=== PATIENT | male | born 1990 | race Caucasian/White ===

== ENCOUNTER 2016-10-07 01:11 | Emergency (ER) | payer MEDICAID, OTHER ==
[~2016-10-07] VITALS: Ht 172.7 cm; Wt 136.1 kg
[~2016-10-07 01:11] MED LIST: TRAZ50TA2 PO; VENL75CA47 PO
[2016-10-07 01:15] VITALS: BP 156/85
== END 2016-10-07 01:49 | disposition left against medical advice (07) ==
LOC: EDBD 01:11 → M ED 01:45
DX: F11.129 Opioid abuse with intoxication, unspecified (principal); Z79.899 Other long term (current) drug therapy

== ENCOUNTER → 2016-11-11 | Outpatient (CLI) | payer OTHER ==
[2016-11-11 13:56] LABS: MEAN CORPUSCULAR HEMOGLOBIN 27.3 pg (27.0-33.0); MEAN CORPUSCULAR HGB CONC 33.6 g/dl (32.0-36.5); MEAN CORPUSCULAR VOLUME 81.3 fl (80.0-96.0); RED CELL DISTRIBUTION WIDTH 13.5 % (11.5-14.5)
[2016-11-11 14:20] LABS: ALBUMIN/GLOBULIN RATIO 1.38 (1.00-1.93); ALKALINE PHOSPHATASE 121 U/L (45-117); ALT/SGPT 65 U/L (12-78); ANION GAP 7 MEQ/L (8-16); AST/SGOT 48 U/L (15-37); BILIRUBIN,TOTAL 0.3 MG/DL (0.2-1.0); BLOOD UREA NITROGEN 11 MG/DL (7-18); CARBON DIOXIDE LEVEL 26 MEQ/L (21-32); CHLORIDE LEVEL 107 MEQ/L (98-107); CREATININE FOR GFR 0.84 MG/DL (0.70-1.30); GLOMERULAR FILTRATION RATE > 60.0 (>60); GLUCOSE, FASTING 131 MG/DL (70-105); POTASSIUM SERUM 4.3 MEQ/L (3.5-5.1); SODIUM LEVEL 140 MEQ/L (136-145); TOTAL PROTEIN 6.9 GM/DL (6.4-8.2)
--- NOTE | 2016-11-11 21:01 | ECGEPIP ---
Stationary ECG Study [facility] Test Date: 2016-11-11 Pat Name: CONRAD LI Department: Room: - Gender: M Director Of Reimbursement: : 1990 Requested By: Lenin Hoang Order Number: [id number] Reading MD: Joselo Albarran Measurements Intervals [place] Rate: 89 P: 32 MN: 157 QRS: 16 QRSD: 92 T: 18 QT: 358 QTc: 437 Interpretive Statements Normal sinus rhythm Likely normal for age Electronically Signed On 11-11-2016 21:01:21 EDT by Joselo Albarran
== END ==
LOC: M LAB 12:21
PROVIDERS: ATTEND Family Medicine
DX: F11.20 Opioid dependence, uncomplicated (principal)

== ENCOUNTER 2016-11-18 10:33 | Emergency (ER) | payer OTHER ==
[~2016-11-18] VITALS: Ht 172.7 cm; Wt 152.0 kg
[2016-11-18] MEDS ORDERED: SUBO4MIS SL (10:44)
[2016-11-18] MEDS ORDERED: HYDR25T PO (10:44)
[2016-11-18] MEDS ORDERED: GABA-283 PO (10:44)
[2016-11-18] MEDS ORDERED: IBUP600T26 PO (10:44)
[2016-11-18] MEDS ORDERED: KETOROLAC 60 MG/2 ML VIAL (J1885) IM ONE (11:30)
[2016-11-18 12:01] LABS: BASO # 0.1 K/mm3 (0.0-0.2); BASO % 0.7 % (0.0-1.0); EOS # 0.6 K/mm3 (0.0-0.50); EOS % 6.6 % (0.0-3.0); LARGE UNSTAINED CELL # 0.1 K/mm3 (0.0-0.4); LARGE UNSTAINED CELL % 1.5 % (0.0-4.0); LYMPH # 3.1 K/mm3 (1.5-6.5); LYMPH % 34.2 % (24.0-44.0); MEAN CORPUSCULAR HEMOGLOBIN 26.9 pg (27.0-33.0); MEAN CORPUSCULAR HGB CONC 33.2 g/dl (32.0-36.5); MEAN CORPUSCULAR VOLUME 81.1 fl (80.0-96.0); MONO # 0.5 K/mm3 (0.0-0.8); NEUTROPHILS # 4.4 K/mm3 (1.8-7.7); PLATELET COUNT, AUTOMATED 234 k/mm3 (150-450); RED CELL DISTRIBUTION WIDTH 13.6 % (11.5-14.5); WHITE BLOOD COUNT 8.6 K/mm3 (4.0-10.0)
[2016-11-18 12:26] LABS: ANION GAP 6 MEQ/L (8-16); BLOOD UREA NITROGEN 10 MG/DL (7-18); CALCIUM LEVEL 8.9 MG/DL (8.5-10.1); CARBON DIOXIDE LEVEL 29 MEQ/L (21-32); CHLORIDE LEVEL 105 MEQ/L (98-107); CREATININE FOR GFR 0.83 MG/DL (0.70-1.30); GLOMERULAR FILTRATION RATE > 60.0 (>60); GLUCOSE, FASTING 106 MG/DL (70-105); POTASSIUM SERUM 4.3 MEQ/L (3.5-5.1); SODIUM LEVEL 140 MEQ/L (136-145); URIC ACID 6.8 MG/DL (3.5-7.2)
[2016-11-18 12:45] VITALS: BP 140/81
[2016-11-18] MEDS ORDERED: HYDR25TAB PO (12:57)
== END 2016-11-18 13:01 | disposition home or self-care (01) ==
LOC: M ED 11:34
DX: R60.0 Localized edema (principal); F99 Mental disorder, not otherwise specified; F11.10 Opioid abuse, uncomplicated; Z79.899 Other long term (current) drug therapy; F17.210 Nicotine dependence, cigarettes, uncomplicated
CPT/HCPCS: 36415; 80048; 84550; 85025; 96372; 99282; J1885

== ENCOUNTER → 2016-12-08 | Outpatient (CLI) | payer OTHER ==
[~2016-12-08] MED LIST changes: +GABA-283 PO; +HYDR25T PO; +HYDR25TAB PO; +IBUP600T26 PO; +SUBO4MIS SL
[2016-12-08 12:32] LABS: BASO # 0.1 K/mm3 (0.0-0.2); BASO % 0.9 % (0.0-1.0); EOS # 0.5 K/mm3 (0.0-0.50); LARGE UNSTAINED CELL # 0.2 K/mm3 (0.0-0.4); LARGE UNSTAINED CELL % 2.4 % (0.0-4.0); LYMPH # 3.2 K/mm3 (1.5-6.5); LYMPH % 31.2 % (24.0-44.0); MEAN CORPUSCULAR HEMOGLOBIN 27.9 pg (27.0-33.0); MEAN CORPUSCULAR HGB CONC 34.5 g/dl (32.0-36.5); MEAN CORPUSCULAR VOLUME 80.9 fl (80.0-96.0); MONO # 0.9 K/mm3 (0.0-0.8); NEUTROPHILS # 4.7 K/mm3 (1.8-7.7); NEUTROPHILS % 50.4 % (36.0-66.0); PLATELET COUNT, AUTOMATED 247 k/mm3 (150-450); RED CELL DISTRIBUTION WIDTH 13.4 % (11.5-14.5); WHITE BLOOD COUNT 9.4 K/mm3 (4.0-10.0)
[2016-12-08 13:15] LABS: ALBUMIN 3.6 GM/DL (3.2-5.2); ALBUMIN/GLOBULIN RATIO 1.24 (1.00-1.93); ALKALINE PHOSPHATASE 69 U/L (45-117); ALT/SGPT 43 U/L (12-78); ANION GAP 8 MEQ/L (8-16); AST/SGOT 46 U/L (15-37); BILIRUBIN,TOTAL 0.5 MG/DL (0.2-1.0); BLOOD UREA NITROGEN 16 MG/DL (7-18); CARBON DIOXIDE LEVEL 28 MEQ/L (21-32); CHLORIDE LEVEL 104 MEQ/L (98-107); CHOLESTEROL LEVEL 157 MG/DL (<200); CREATININE FOR GFR 0.87 MG/DL (0.70-1.30); GLOMERULAR FILTRATION RATE > 60.0 (>60); GLUCOSE, FASTING 96 MG/DL (70-105); POTASSIUM SERUM 4.5 MEQ/L (3.5-5.1); SODIUM LEVEL 140 MEQ/L (136-145); TOTAL PROTEIN 6.5 GM/DL (6.4-8.2); TRIGLYCERIDES LEVEL 438 MG/DL (<150)
--- NOTE | 2016-12-08 17:02 | REP ---
LUMBAR SPINE, SIX VIEWS: HISTORY: Visual exam. COMPARISON: 09/10/2012. A rudimentary disc is present at the S1-2 level. There is no acute fracture or subluxation. The L3-4 through L5-S1 intervertebral discs are decreased in height consistent with disc degeneration. The facet joints are normal in appearance. There is spina bifida occulta of S1 and 2. IMPRESSION: Degenerative change as described above. Signed by Rikki Hinkle MD 12/08/2016 05:05 P
== END ==
LOC: M LAB 11:26
PROVIDERS: ATTEND Nurse Practitioner Family
DX: R60.9 Edema, unspecified (principal); E66.01 Morbid (severe) obesity due to excess calories; Z13.220 Encounter for screening for lipoid disorders

== ENCOUNTER → 2017-01-13 | Outpatient (CLI) | payer OTHER ==
--- NOTE | 2017-01-13 23:53 | ECWPNPC ---
PATIENT NAME: CONRAD LI : 1990 GENDER: MALE VISIT DATE: 01/13/2017 DISCHARGE DATE: 01/13/17 1256 VISIT LOCKED DATE TIME: PHYSICIAN: DENISE GONZALES RESOURCE: DENISE GONZALES REASON FOR APPOINTMENT 1. BACK PAIN HISTORY OF PRESENT ILLNESS FALL RISK SCREENIN26 Y/O MALE [facility]RON[facility] GENERALIZED BACK PAIN.HAS HAD THIS FOR SEVERAL YEARS.PAIN IS AGGREVATED BY PROLONGED STANDING AND LAYING DOWN.REPORTING POOR SLEEP DUE TO PAIN.STATES HE HAS FALLEN DOWN STAIRS IN 2011 WHICH HE FEELS MIGHT HAVE STARTED PAIN.HISTORY OF HEROIN AND OPIATE/PERCOCET ADDICTION DISORDER.STATES HE HAS BEEN CLEAN FOR THREE MONTHS AND IS RESIDING IN [facility] HOUSE MANAGED BY [employer].CURRENTLY ON SUBOXONE THERAPY.TAKING NAPROXEN 500MG BID.NO RECENT PT.DESCRIBES PAIN A CONSTANT ACHING PAIN THAT IS WORSE IN AM.RATING PAIN VAS 3/10.DENIES BOWEL OR BLADDER ISSUES.NORECENT FEVER ,ILLNESS OR WEIGHT LOSS. SCREENING :NO FALLS IN THE PAST YEAR PAIN SCREENING: PATIENT HAS A COMPLAINT OF ACUTE OR CHRONIC PAIN :YES CURRENT MEDICATIONS TAKING GABAPENTIN 400 MG CAPSULE 1 CAPSULE ORALLY BID TAKING ZOLOFT 50 MG TABLET 1 TABLET ORALLY ONCE A DAY TAKING HYDROXYZINE HCL 25 MG TABLET 1 TABLET ORALLY EVERY 4 HOURS NEEDED TAKING LASIX 20 MG TABLET 1 TABLET ORALLY ONCE A DAY TAKING SUBOXONE 8-2 MG FILM 1 FILM UNDER THE TONGUE AND ALLOW TO DISSOLVE SUBLINGUAL ONCE A DAY TAKING NAPROXEN 500 MG TABLET 1 TABLET NEEDED ORALLY EVERY 12 HRS PRN PAIN MEDICATION LIST REVIEWED AND RECONCILED WITH THE PATIENT PAST MEDICAL HISTORY HX OF HEROIN USE HX OF OPIOID ABUSE LOW BACK PAIN OCD PTSD MANIC DEPRESSION ADJUSTMENT DISORDER SOCIAL ANXIETY ANXIETY DDD ARTHRITIS OBESITY ALLERGIES GABAPENTIN: FLUID RETENSION: SIDE EFFECTS SURGICAL HISTORY CARPAL TUNNEL RELEASE BILATERAL HERNIA REPAIR-LEFT INGUINAL T & A FAMILY HISTORY FATHER: ALIVE 50 YRS, BRAIN TUMOR BENIGN ALCOHOLIC, DRUG ABUSE (RECOVERY)., DIAGNOSED WITH OTHER MOTHER: ALIVE 50 YRS, MENTAL HEALTH ISSUES, DIAGNOSED WITH OTHER SIBLINGS: ALIVE PATERNAL GRAND FATHER: PATERNAL GRAND MOTHER: , BREAST,COLON,LUNG,THROAT CANCER, DIAGNOSED WITH CANCER MATERNAL GRAND FATHER: ALIVE, DIAYLSIS, DIAGNOSED WITH DIABETES, HEART DISEASE MATERNAL GRAND MOTHER: ALIVE, BREAST CANCER, DIAGNOSED WITH CANCER 4 BROTHER(S) , 1 SISTER(S) - HEALTHY. 2 SON(S) , 1 DAUGHTER(S) - HEALTHY. FATHER--BRAIN TUMOR-BEIGN, ALCOHOLIC, DRUG ABUSE,DDDMOTHER-MENTAL HEALTH ISSUES, DDDBROTHERS SMOKE MARIJUANA. SOCIAL HISTORY GENERAL: TOBACCO USE ARE YOU A:FORMER SMOKER QUIT 01/06/17 SMOKING CESSATION INFORMATION GIVEN12/07/2016 ALCOHOL SCREENING POINTS5 INTERPRETATIONPOSITIVE RECREATIONAL DRUG USE DRUG USE?YES COCAINE, MARIJUANA, CRACK, HEROIN, OPIATES, HOW OFTEN AND HOW MUCH? NOT USING AT THIS TIME--HE IS IN A [employer] HOUSE AND HAS BEEN CLEAN FOR 3 MONTHS CAFFEINE CAFFEINE USE?YES HOW OFTEN AND HOW MUCH? POT OF COFFEE, 2 ENERGY DRINKS/DAILY SEXUAL HX HAD SEX IN THE LAST 12 MONTHS (VAGINAL, ORAL, OR ANAL)?YES WITHWOMEN ONLY USE PROTECTION?NO PREVENTION STRATEGIES DISCUSSED:OTHER HAVE YOU EVER HAD AN STD?NO HIV / HEP-C SCREENING HIV TEST OFFERED TO PATIENT:YES DATE OFFERED:12/07/2016 TEST ACCEPTED:NO REASON:OTHER (DOCUMENT IN NOTE) DECLINES NEGATIVE IN THE PAST. HEP-C TEST OFFERED TO PATIENT:NO OCCUPATION: [employer]. DIET: REGULAR. EXERCISE: NONE. MARITAL STATUS: SINGLE. OTHERS AT HOME: OTHER NON-RELATIVE. PETS: 1 DOG. ANABAPTISM [id number] [employer] LANGUAGE LANGUAGES SPOKEN:HUNGARIAN EDUCATION LEVEL OF EDUCATION:NOT FINISHED COLLEGE LEARNING BARRIERS / SPECIAL NEEDS CHANGE FROM LAST VISIT?NO BARRIERS TO LEARNING?NO HEARING IMPAIRED?NO VISION IMPAIRED?NO COGNITIVELY IMPAIRED?YES HAS PROBLEMS FOCUSING READINESS TO LEARN?YES LEARNING PREFERENCES?YES :OTHER (PLEASE COMMENT) 'LIKES TO LISTEN' LEARNING CAPABILITIES PRESENT?YES EMOTIONAL BARRIERS?NO SPECIAL DEVICES?NO VP ANALYSIS NEEDED?NO PAIN CLINIC PFS, CLERGY, PUBLIC HEALTH REFERRALS PFS REFERRAL NEEDED?NO CLERGY REFERRAL NEEDED?NO PUBLIC HEALTH REFERRAL NEEDED?NO ADVANCE DIRECTIVES HEALTH CARE PROXY?NO WOULD YOU LIKE MORE INFORMATION?NO DO YOU HAVE A DNR?NO WOULD YOU LIKE MORE INFORMATION?NO LIVING WILL?NO WOULD YOU LIKE MORE INFORMATION?NO POWER OF FIBERGLASS ROVING WINDER?NO WOULD YOU LIKE MORE INFORMATION?NO COHABITATING: YEARS MONTHS. NO DOMESTIC VIOLENCE . PLAN OF CARE FOR THE PAIN CENTER REVIEWED WITH PATIENT AND HE VERBALIZED UNDERSTANDING. AD. HOSPITALIZATION/MAJOR DIAGNOSTIC PROCEDURE [facility] DRUG ADDICTION. 10/08-11/09/2016 [facility] M[facility] 10/2012 REVIEW OF SYSTEMS CONSTITUTIONAL: ANY CHANGE IN YOUR MEDICAL CONDITION? NO . CHILLS NO . FEVER NO . INFECTION: DO YOU HAVE NEW INFECTIONS? NO . DO YOU HAVE HISTORY OF MRSA? NO . MUSCULOSKELETAL: ANY NEW PATTERNS OF PAIN OR NUMBNESS? YES, IF HE STANDS TOO LONG IT FEELS LIKE HE IS BEING ELECTRICUTED . SYTEMIC LUPUS NO . GASTROENTEROLOGY: ANY NEW CHANGE IN BOWEL CONTROL? NO . BARRETTS ESOPHAGUS NO . CIRRHOSIS NO . HEPATITIS NO . LIVER FAILURE NO . ACID REFLUX NO . UNEXPLAINED WEIGHT LOSS NO . GENITOURINARY: ANY NEW CHANGE IN BLADDER CONTROL? NO . IS THERE A CHANCE YOU COULD BE ? NO . HEMATOLOGY/LYMPH: DO YOU TAKE ANY BLOOD THINNERS? (FOR EXAMPLE- COUMADIN, PLAVIX, AGGRENOX, PLATEL, PRADAXA, OR XARELTO) NO . WHEN WAS YOUR LAST DOSE? DATE: TIME: . LOW PLATELET COUNT NO . SICKLE CELL DISEASE NO . VON WILLIEBRANDS NO . FACTOR V LEIDEN NO . THALLASEMIA NO . ANEMIA NO . EASY BRUISING NO . NEUROLOGY: HAVE YOU FALLEN IN THE PAST 6 MONTHS? NO . ANY NEW EXTREMITY NUMBNESS OR WEAKNESS? NO . HEAD INJURY NO . DEMENTIA NO . CEREBRAL PALSY NO . MULTIPLE SCLEROSIS NO . DIZZINESS NO . HEADACHE NO . STROKES NO . VERTIGO NO . CARDIOLOGY: DO YOU HAVE A PACEMAKER OR DEFIBRILLATOR? NO . ANGINA NO . HEART ATTACK NO . HEART SURGERY NO . CONGESTIVE HEART FAILURE/FLUID OVERLOAD NO . CHEST PAIN NO . HIGH BLOOD PRESSURE NO . IRREGULAR HEART BEAT NO . RESPIRATORY: HAVE YOU BEEN SICK IN THE PAST WEEK? NO . FEVER NO . FLU LIKE SYMPTOMS? NO . CPAP NO . BYPAP NO . ASTHMA NO . EMPHYSEMA NO . CHRONIC LUNG DISEASES NO . SHORTNESS OF BREATH ON EXERTION NO . COUGH NO . SNORING YES, HAS SLEEP STUDY SET UP FOR FEBRUARY . INTEGUMENTARY: DO YOU HAVE ANY RASHES OR OPEN SORES? NO . ALLERGIC/IMMUNO: ARE YOU ALLERGIC TO SHELLFISH OR IV DYE? NO . ANY NEW ALLERGIES? NO . PSYCHIATRIC: DO YOU HAVE THOUGHTS OF HURTING YOURSELF OR SOMEONE ELSE? NO . ARE YOU ABUSED, NEGLECTED, OR IN AN UNSAFE ENVIRONMENT? NO . ENDOCRINOLOGY: ARE YOU DIABETIC? NO . THYROID DISORDER NO . OTHER: DO YOU NEED ANY PRESCRIPTIONS? NO . IF YES, PLEASE LIST: ____ . ANY NEW PROBLEMS WITH YOUR MEDICATIONS? NO . WHEN DID YOU LAST EAT? ____ . WHEN DID YOU LAST DRINK? ____ . WHAT DID YOU LAST DRINK? ____ . NAME OF PERSON DRIVING YOU HOME? ____ . DO YOU HAVE ANY OTHER QUESTIONS OR CONCERNS YES, PAIN RELIEF . REVIEWED BY: PROVIDER: DENISE OMER . VITAL SIGNS WT 336.4 LBS, HT 68 IN, BMI 51.14 INDEX, BP 141/81 MM HG, HR 87 /MIN, RR 18 /MIN, TEMP 97.9 F, OXYGEN SAT % 95%, NA INITIALS SC 11:59, REVIEWED BY: AD. EXAMINATION GENERAL EXAMINATION: GENERAL APPEARANCE:COMFORTABLE/OBESE. PSYCHAFFECT NORMAL. HEENT:NORMOCEPHALIC. NECK:NO LYMPHADENOPATHY, NO MASS. LUNGS:LUNG SOUNDS ARE CLEAR.RESPIRATIONS-NON LABORED. HEART:S1, S2 IN A REGULAR RATE AND RHYTHM. NO SIGNIFICANT MURMURS, RUBS OR GALLOPS NOTED. BACK:TENDER OVER MID AND LOWER THORACIC.ROJM SPINE IS FULL WITH INCRESSE IN PAIN WITH FLEXION AND EXTENSION.MUSCLE STRENGTH 5/5 BILAT.LE.REPORTING NORMAL SENSATION TO LIGHT TOUCH BILAT.LE. DIAGNOSTIC DATA-XRAY L/S [id number]-REVIEWED. ASSESSMENTS LOW BACK PAIN AT MULTIPLE SITES - M54.5 (PRIMARY) LUMBAR RADICULOPATHY - M54.16 TREATMENT LOW BACK PAIN AT MULTIPLE SITES [facility] MRI SPINE, L.S. WITHOUT [id number] NOTES: TAKE ACETAMINOPHEN 500MG TWO TAB. WITH NAPROXEN TWICE PER DAY, #128 - SCREENING BMI AND F/U PLAN IN : BMI ABOVE NORMAL TODAY. DISCUSSED WITH PATIENT NUTRITIONAL FOOD CHOICES TO ASSIST WITH WEIGHT LOSS. RECCOMMENDED REDUCING SALT, SUGAR, SODA INTAKE. RECOMMEND INCREASE ACTIVITY TO INCLUDE WALKING ON A REGULAR BASIS. PROFESSIONAL NUTRITIONAL NUTRITIONAL GUIDANCE WAS OFFERED AND WAS DECLINED. , PATIENT WAS ADVISED TO START A WALKING PROGRAM TO STRENGTHEN LUMBAR PARASPINAL MUSCLES AND IMPROVE MOBILITY. THEY WERE ADVISED THAT THIS WILL IMPROVE WEIGHT LOSS AND ALSO DEPRESSION/FIBROMYALGIA SYMPTOMS. ADVISED TO WALK 10 MINUTES EVERY OTHER DAY ON A FLAT SURFACE. EMPHASIZED THE IMPORTANCE OF DOING THIS CONSISTANTLY AND NOT SPORATICALLY TO AVOID INJURY. STRONG ADVISED NOT TO DO MORE THAN 10 MINUTES EVERY OTHER DAY FOR THE FIRST 4 WEEKS. PROCEDURE CODES FA211 ESTABILISHED PATIENT [facility] CHARGE DISPOSITION & COMMUNICATION FOLLOW UP 4 WEEKS ELECTRONICALLY SIGNED BY KAN CARDENAS ON 01/13/2017 AT 02:31 PM EDT DISCLAIMER : THIS IS A VISIT SUMMARY EXTRACTED FROM THE [employer] CHART. IT IS NOT A COPY OF THE [employer] PROGRESS NOTE. DHIRAJ
== END | disposition home or self-care (01) ==
LOC: M PAIN 11:20
PROVIDERS: ATTEND Nurse Practitioner Family
DX: G89.29 Other chronic pain (principal); M54.16 Radiculopathy, lumbar region; F42.9 Obsessive-compulsive disorder, unspecified; F43.10 Post-traumatic stress disorder, unspecified; F33.9 Major depressive disorder, recurrent, unspecified; F43.20 Adjustment disorder, unspecified; F41.8 Other specified anxiety disorders; M19.90 Unspecified osteoarthritis, unspecified site; E66.9 Obesity, unspecified; Z79.899 Other long term (current) drug therapy; F11.21 Opioid dependence, in remission; Z88.8 Allergy status to other drugs, medicaments and biological substances; F17.210 Nicotine dependence, cigarettes, uncomplicated

== ENCOUNTER → 2017-01-18 | Outpatient (REF) | payer OTHER ==
[2017-01-18 14:14] LABS: ALBUMIN/GLOBULIN RATIO 1.43 (1.00-1.93); ALKALINE PHOSPHATASE 66 U/L (45-117); ALT/SGPT 28 U/L (12-78); ANION GAP 8 MEQ/L (8-16); AST/SGOT 29 U/L (15-37); BILIRUBIN,TOTAL 0.6 MG/DL (0.2-1.0); BLOOD UREA NITROGEN 17 MG/DL (7-18); CALCIUM LEVEL 9.3 MG/DL (8.5-10.1); CARBON DIOXIDE LEVEL 28 MEQ/L (21-32); CHLORIDE LEVEL 106 MEQ/L (98-107); CREATININE FOR GFR 0.86 MG/DL (0.70-1.30); GLOMERULAR FILTRATION RATE > 60.0 (>60); GLUCOSE, FASTING 79 MG/DL (70-105); POTASSIUM SERUM 4.2 MEQ/L (3.5-5.1); SODIUM LEVEL 142 MEQ/L (136-145); TOTAL PROTEIN 6.8 GM/DL (6.4-8.2)
== END ==
LOC: M SFHCPLAZ 10:42
PROVIDERS: ATTEND Nurse Practitioner Family
DX: R60.9 Edema, unspecified (principal)

== ENCOUNTER → 2017-02-03 | Outpatient (CLI) | payer OTHER ==
[~2017-02-03] MED LIST changes: +HYDR-3363 PO; -HYDR25T PO; +IBUP-1022 PO; -IBUP600T26 PO; +NAPR500T PO; +ZOLO100T PO
--- NOTE | 2017-02-03 12:25 | REP ---
REASON: Low back pain. COMPARISON: None. There is loss of posterior disc space height and universal disc hydrational signal L2-3 through L4-5 inclusive. There is no abnormal signal seen in the imaged portion of the spinal cord. The conus ends at the T12-L1 level. The marrow signal is within normal limits. Vertebral body height and alignment is within normal limits. At the L1-2 leve, there is no disc herniation, foraminal narrowing or central canal stenosis. Mild degenerative facet joint changes are seen bilaterally with thickening of the ligamenta flava and there is a small left facet joint cyst. At the L2-3 level, there is a broad-based annular bulge seen in conjunction with a small central/left paracentral disc protrusion which causes minimal compression of the anterior thecal sac. Degenerative facet joint changes are seen bilaterally with thickening of the ligamentum flava and the factors in concert cause minimal central canal stenosis. There is no foraminal narrowing or jennyfer disc extrusion. At the L3-4 level, there is a broad-based annular bulge seen in conjunction with a small central/right paracentral disc extrusion which causes an concave anterior deformity of the anterior thecal sac. This is seen in conjunction with degenerative facet joint changes bilaterally and thickening of the ligamentum flava. There is no foraminal narrowing. The extruded disc does not migrate. At the L4-5 level, there is a broad-based annular bulge seen in conjunction with a tiny focal central subligamentous disc protrusion, which does not deform the anterior thecal sac. There is no disc extrusion or foraminal narrowing. At the L5-S1 level there is no abnormality noted. There is no disc herniation, foraminal narrowing or central canal stenosis. IMPRESSION: Multilevel discogenic changes as described above with a small disc extrusion see at the L3-4 level. Signed by Modesto Quintero DO 02/03/2017 12:58 P
== END ==
LOC: M PLARAD 07:54
PROVIDERS: ATTEND Nurse Practitioner Family
DX: M51.26 Other intervertebral disc displacement, lumbar region (principal)

== ENCOUNTER → 2017-02-08 | Outpatient (CLI) | payer OTHER ==
--- NOTE | 2017-02-21 00:51 | ECWPNPC ---
PATIENT NAME: CONRAD LI : 1990 GENDER: MALE VISIT DATE: 02/08/2017 DISCHARGE DATE: 02/08/17 1600 VISIT LOCKED DATE TIME: PHYSICIAN: DENISE GONZALES RESOURCE: DENISE GONZALES HISTORY OF PRESENT ILLNESS HISTORY OF PRESENT ILLNESS: PAIN THE PATIENT DESCRIBES THE PAIN... THE PATIENT DESCRIBES THE PAIN... PAIN THE PATIENT DESCRIBES THE PAIN... THE PATIENT DESCRIBES THE PAIN... FALL RISK SCREENIN26 Y/O MALE REFERRED BY [facility]- FOR CHRONIC GENERALIZED BACK PAIN.HAS HAD THIS FOR SEVERAL YEARS.PAIN IS AGGREVATED BY PROLONGED STANDING AND LAYING DOWN.REPORTING POOR SLEEP DUE TO PAIN.STATES HE HAS FALLEN DOWN STAIRS IN 2011 WHICH HE FEELS MIGHT HAVE STARTED PAIN.HISTORY OF HEROIN AND OPIATE/PERCOCET ADDICTION DISORDER.STATES HE HAS BEEN CLEAN FOR THREE MONTHS AND IS RESIDING IN [facility] HOUSE MANAGED BY [employer].CURRENTLY ON SUBOXONE THERAPY.TAKING NAPROXEN 500MG BID.NO RECENT PT.DESCRIBES PAIN A CONSTANT ACHING PAIN THAT IS WORSE IN AM.RATING PAIN VAS 3/10.DENIES BOWEL OR BLADDER ISSUES.NORECENT FEVER ,ILLNESS OR WEIGHT LOSS.HERE TODAY TO REVIEW MRI L/S SPINE. SCREENING :NO FALLS IN THE PAST YEAR :NO FALLS IN THE PAST YEAR :NO FALLS IN THE PAST YEAR CURRENT MEDICATIONS TAKING HYDROXYZINE HCL 50 MG TABLET 1 TABLET ORALLY EVERY 4 HOURS NEEDED TAKING SUBOXONE 8-2 MG FILM 1 FILM UNDER THE TONGUE AND ALLOW TO DISSOLVE SUBLINGUAL ONCE A DAY TAKING GABAPENTIN 100 MG CAPSULE 1 TABLET ORALLY BID FOR TWO WEEKS THEN DECREASE TO 1 TABLET BID FOR TWO WEEKS THEN DISCONTINUE TAKING ZOLOFT 100 MG TABLET 1 TABLET ORALLY ONCE A DAY NOT-TAKING NAPROXEN 500 MG TABLET 1 TABLET NEEDED ORALLY EVERY 12 HRS PRN PAIN NOT-TAKING LASIX 20 MG TABLET 1 TABLET ORALLY ONCE A DAY MEDICATION LIST REVIEWED AND RECONCILED WITH THE PATIENT PAST MEDICAL HISTORY HX OF HEROIN USE HX OF OPIOID ABUSE LOW BACK PAIN OCD PTSD MANIC DEPRESSION ADJUSTMENT DISORDER SOCIAL ANXIETY ANXIETY DDD ARTHRITIS OBESITY ALLERGIES GABAPENTIN: EDEMA: SIDE EFFECTS REVIEW OF SYSTEMS REVIEWED BY: PROVIDER: DENISE . CONSTITUTIONAL: ANY CHANGE IN YOUR MEDICAL CONDITION? NO . CHILLS NO . FEVER NO . INFECTION: DO YOU HAVE NEW INFECTIONS? NO . DO YOU HAVE HISTORY OF MRSA? NO . MUSCULOSKELETAL: ANY NEW PATTERNS OF PAIN OR NUMBNESS? NO . GASTROENTEROLOGY: ANY NEW CHANGE IN BOWEL CONTROL? NO . GENITOURINARY: ANY NEW CHANGE IN BLADDER CONTROL? NO . IS THERE A CHANCE YOU COULD BE ? NO . HEMATOLOGY/LYMPH: DO YOU TAKE ANY BLOOD THINNERS? (FOR EXAMPLE- COUMADIN, PLAVIX, AGGRENOX, PLATEL, PRADAXA, OR XARELTO) NO . WHEN WAS YOUR LAST DOSE? DATE: TIME: . NEUROLOGY: HAVE YOU FALLEN IN THE PAST 6 MONTHS? NO . ANY NEW EXTREMITY NUMBNESS OR WEAKNESS? NO . CARDIOLOGY: DO YOU HAVE A PACEMAKER OR DEFIBRILLATOR? NO . RESPIRATORY: HAVE YOU BEEN SICK IN THE PAST WEEK? NO . FEVER NO . FLU LIKE SYMPTOMS? NO . COUGH NO . INTEGUMENTARY: DO YOU HAVE ANY RASHES OR OPEN SORES? NO . ALLERGIC/IMMUNO: ARE YOU ALLERGIC TO SHELLFISH OR IV DYE? NO . ANY NEW ALLERGIES? NO . PSYCHIATRIC: DO YOU HAVE THOUGHTS OF HURTING YOURSELF OR SOMEONE ELSE? NO . ARE YOU ABUSED, NEGLECTED, OR IN AN UNSAFE ENVIRONMENT? NO . ENDOCRINOLOGY: ARE YOU DIABETIC? NO . OTHER: DO YOU NEED ANY PRESCRIPTIONS? NO . IF YES, PLEASE LIST: ____ . ANY NEW PROBLEMS WITH YOUR MEDICATIONS? NO . WHEN DID YOU LAST EAT? ____, . WHEN DID YOU LAST DRINK? ____, . WHAT DID YOU LAST DRINK? ____ . NAME OF PERSON DRIVING YOU HOME? ____, . DO YOU HAVE ANY OTHER QUESTIONS OR CONCERNS YES PT FEELS LIKE HE NEEDS SOMETHING FOR CONCENTRATION . VITAL SIGNS WT 330.6 LBS, HT 68 IN, BMI 50.26 INDEX, BP 143/94 MM HG, HR 67 /MIN, RR 18 /MIN, TEMP 97.6 F, OXYGEN SAT % 97%, SAFE IN ENV? (Y/N) YES, NA INITIALS SC 15:10, REVIEWED BY: JASMIN. EXAMINATION GENERAL EXAMINATION: GENERAL APPEARANCE:COMFORTABLE/OBESE. PSYCHAFFECT NORMAL. HEENT:NORMOCEPHALIC. NECK:NO LYMPHADENOPATHY, NO MASS. LUNGS:LUNG SOUNDS ARE CLEAR.RESPIRATIONS-NON LABORED. HEART:S1, S2 IN A REGULAR RATE AND RHYTHM. NO SIGNIFICANT MURMURS, RUBS OR GALLOPS NOTED. BACK:TENDER OVER MID AND LOWER THORACIC.ROJM SPINE IS FULL WITH INCRESSE IN PAIN WITH FLEXION AND EXTENSION.MUSCLE STRENGTH 5/5 BILAT.LE.REPORTING NORMAL SENSATION TO LIGHT TOUCH BILAT.LE.POINT TENDERNESS OVER BILATERAL SIJ L>R. DIAGNOSTIC DATA-XRAY L/S [id number]-REVIEWEDMRI L/S [id number]-REVIEWED. ASSESSMENTS LOW BACK PAIN AT MULTIPLE SITES - M54.5 (PRIMARY) BILATERAL SACROILIITIS - M46.1 TREATMENT LOW BACK PAIN AT MULTIPLE SITES NOTES: BILATERAL SIJ. PREVENTIVE MEDICINE PAIN CLINIC TEACHING: PROCEDURE TEACHING PT GIVEN TEACHING HANDOUT FOR SIJ INJECTIONS, REVIEWED, PT VERBALIZES UNDERSTANDING.. PROCEDURE CODES FA211 ESTABILISHED PATIENT [facility] FACILITY CHARGE DISPOSITION & COMMUNICATION FOLLOW UP 2WK POST (REASON: BILATERAL SIJ) ELECTRONICALLY SIGNED BY KAN CARDENAS ON 02/20/2017 AT 02:11 PM EDT DISCLAIMER : THIS IS A VISIT SUMMARY EXTRACTED FROM THE [employer] CHART. IT IS NOT A COPY OF THE [employer] PROGRESS NOTE. DHIRAJ
== END ==
LOC: M PAIN 15:00
PROVIDERS: ATTEND Nurse Practitioner Family
DX: M54.5 Low back pain (principal); M46.1 Sacroiliitis, not elsewhere classified; G89.29 Other chronic pain; Z79.899 Other long term (current) drug therapy; Z88.8 Allergy status to other drugs, medicaments and biological substances; Z86.59 Personal history of other mental and behavioral disorders; Z87.898 Personal history of other specified conditions

== ENCOUNTER → 2017-02-23 | Outpatient (CLI) | payer OTHER ==
[~2017-02-23] VITALS: Ht 172.7 cm; Wt 148.0 kg
[~2017-02-23] MED LIST changes: +ACETAMINOPHEN 500 MG TAB As Ordered ONE; +ACETAMINOPHEN 500 MG TAB PO ONE; +BUPIVACAINE HCL 0.25% 30 ML VIAL As Ordered ONE; +ISOVUE-M 300 61% 15ML VIAL (Q9967) As Ordered ONE; +LIDOCAINE 1% SDV INJ 30 ML VIAL As Ordered ONE; +TRIAMCINOLONE ACETONIDE SUSP 40 MG/ML VIAL (J3301) As Ordered ONE; +diazePAM 5 MG TAB As Ordered ONE
--- NOTE | 2017-02-23 15:10 | REP ---
PARTIAL SI JOINT SERIES: Nine views. HISTORY: Pain injection procedure. 47 seconds of fluoroscopy time is reported. FINDINGS: A sequence of nine fluoroscopically obtained intraprocedural spot radiographs of the SI joints bilaterally document various needle positions and contrast injections associated with injection procedure. Signed by Elliot Fish MD 02/23/2017 04:41 P
--- NOTE | 2017-03-05 23:36 | ECWPNPC ---
PATIENT NAME: CONRAD LI : 1990 GENDER: MALE VISIT DATE: 02/23/2017 DISCHARGE DATE: 02/23/17 1425 VISIT LOCKED DATE TIME: PHYSICIAN: DIONISIO URBINA RESOURCE: DIONISIO URBINA REASON FOR APPOINTMENT 1. SIJ HISTORY OF PRESENT ILLNESS HISTORY OF PRESENT ILLNESS: PAIN THE PATIENT DESCRIBES THE PAIN... FALL RISK SCREENING: SCREENING :NO FALLS IN THE PAST YEAR CURRENT MEDICATIONS TAKING HYDROXYZINE HCL 50 MG TABLET 1 TABLET ORALLY EVERY 4 HOURS NEEDED, NOTES: 02/23/17729 TAKING SUBOXONE 8-2 MG FILM 1 FILM UNDER THE TONGUE AND ALLOW TO DISSOLVE SUBLINGUAL ONCE A DAY, NOTES: 02/23/17729 TAKING ZOLOFT 100 MG TABLET 1 TABLET ORALLY ONCE A DAY, NOTES: 02/23/17729 NOT-TAKING GABAPENTIN 100 MG CAPSULE 1 TABLET ORALLY BID FOR TWO WEEKS THEN DECREASE TO 1 TABLET BID FOR TWO WEEKS THEN DISCONTINUE NOT-TAKING NAPROXEN 500 MG TABLET 1 TABLET NEEDED ORALLY EVERY 12 HRS PRN PAIN NOT-TAKING LASIX 20 MG TABLET 1 TABLET ORALLY ONCE A DAY MEDICATION LIST REVIEWED AND RECONCILED WITH THE PATIENT PAST MEDICAL HISTORY HX OF HEROIN USE HX OF OPIOID ABUSE LOW BACK PAIN OCD PTSD MANIC DEPRESSION ADJUSTMENT DISORDER SOCIAL ANXIETY ANXIETY DDD ARTHRITIS OBESITY ALLERGIES GABAPENTIN: EDEMA: SIDE EFFECTS SURGICAL HISTORY CARPAL TUNNEL RELEASE BILATERAL HERNIA REPAIR-LEFT INGUINAL T & A FAMILY HISTORY FATHER: ALIVE 50 YRS, BRAIN TUMOR BENIGN ALCOHOLIC, DRUG ABUSE (RECOVERY)., DIAGNOSED WITH OTHER MOTHER: ALIVE 50 YRS, MENTAL HEALTH ISSUES, DIAGNOSED WITH OTHER SIBLINGS: ALIVE PATERNAL GRAND FATHER: PATERNAL GRAND MOTHER: , BREAST,COLON,LUNG,THROAT CANCER, DIAGNOSED WITH CANCER MATERNAL GRAND FATHER: ALIVE, DIAYLSIS, DIAGNOSED WITH DIABETES, HEART DISEASE MATERNAL GRAND MOTHER: ALIVE, BREAST CANCER, DIAGNOSED WITH CANCER 4 BROTHER(S) , 1 SISTER(S) - HEALTHY. 2 SON(S) , 1 DAUGHTER(S) - HEALTHY. FATHER--BRAIN TUMOR-BEIGN, ALCOHOLIC, DRUG ABUSE,DDDMOTHER-MENTAL HEALTH ISSUES, DDDBROTHERS SMOKE MARIJUANA. SOCIAL HISTORY GENERAL: TOBACCO USE ARE YOU A:FORMER SMOKER QUIT 01/06/17 SMOKING CESSATION INFORMATION GIVEN12/07/2016 ALCOHOL SCREENING DID YOU HAVE A DRINK CONTAINING ALCOHOL IN THE PAST YEAR?YES POINTS5 INTERPRETATIONPOSITIVE HOW OFTEN DID YOU HAVE A DRINK CONTAINING ALCOHOL IN THE PAST YEAR?TWO TO FOUR TIMES A MONTH (2 POINTS) HOW MANY DRINKS DID YOU HAVE ON A TYPICAL DAY WHEN YOU WERE DRINKING IN THE PAST YEAR?5 OR 6 (2 POINTS) HOW OFTEN DID YOU HAVE SIX OR MORE DRINKS ON ONE OCCASION IN THE PAST YEAR?LESS THAN MONTHLY (1 POINT) RECREATIONAL DRUG USE DRUG USE?YES COCAINE, MARIJUANA, CRACK, HEROIN, OPIATES, HOW OFTEN AND HOW MUCH? NOT USING AT THIS TIME--HE IS IN A HALF WAY HOUSE AND HAS BEEN CLEAN FOR 3 MONTHS CAFFEINE CAFFEINE USE?YES HOW OFTEN AND HOW MUCH? POT OF COFFEE, 2 ENERGY DRINKS/DAILY SEXUAL HX HAD SEX IN THE LAST 12 MONTHS (VAGINAL, ORAL, OR ANAL)?YES WITHWOMEN ONLY USE PROTECTION?NO PREVENTION STRATEGIES DISCUSSED:OTHER HAVE YOU EVER HAD AN STD?NO HIV / HEP-C SCREENING HIV TEST OFFERED TO PATIENT:YES DATE OFFERED:12/07/2016 TEST ACCEPTED:NO REASON:OTHER (DOCUMENT IN NOTE) DECLINES NEGATIVE IN THE PAST. HEP-C TEST OFFERED TO PATIENT:NO OCCUPATION: [employer]. DIET: REGULAR. EXERCISE: NONE. MARITAL STATUS: SINGLE. OTHERS AT HOME: OTHER NON-RELATIVE. PETS: 1 DOG. JAINISM [id number] JEWISH LANGUAGE LANGUAGES SPOKEN:[place] EDUCATION LEVEL OF EDUCATION:NOT FINISHED COLLEGE LEARNING BARRIERS / SPECIAL NEEDS CHANGE FROM LAST VISIT?NO BARRIERS TO LEARNING?NO HEARING IMPAIRED?NO VISION IMPAIRED?NO COGNITIVELY IMPAIRED?YES HAS PROBLEMS FOCUSING READINESS TO LEARN?YES LEARNING PREFERENCES?YES :OTHER (PLEASE COMMENT) 'LIKES TO LISTEN' LEARNING CAPABILITIES PRESENT?YES EMOTIONAL BARRIERS?NO SPECIAL DEVICES?NO INSURANCE COORDINATOR NEEDED?NO PAIN CLINIC PFS, CLERGY, PUBLIC HEALTH REFERRALS PFS REFERRAL NEEDED?NO CLERGY REFERRAL NEEDED?NO PUBLIC HEALTH REFERRAL NEEDED?NO ADVANCE DIRECTIVES HEALTH CARE PROXY?NO WOULD YOU LIKE MORE INFORMATION?NO DO YOU HAVE A DNR?NO WOULD YOU LIKE MORE INFORMATION?NO LIVING WILL?NO WOULD YOU LIKE MORE INFORMATION?NO POWER OF STATION MECHANIC?NO WOULD YOU LIKE MORE INFORMATION?NO COHABITATING: YEARS MONTHS. NO DOMESTIC VIOLENCE . PLAN OF CARE FOR THE PAIN CENTER REVIEWED WITH PATIENT AND HE VERBALIZED UNDERSTANDING. AD. HOSPITALIZATION/MAJOR DIAGNOSTIC PROCEDURE [facility]. 10/08-11/09/2016 [facility] 10/2012 REVIEW OF SYSTEMS REVIEWED BY: PROVIDER: . CONSTITUTIONAL: ANY CHANGE IN YOUR MEDICAL CONDITION? NO . CHILLS NO . FEVER NO . INFECTION: DO YOU HAVE NEW INFECTIONS? NO . DO YOU HAVE HISTORY OF MRSA? NO . MUSCULOSKELETAL: ANY NEW PATTERNS OF PAIN OR NUMBNESS? NO . GASTROENTEROLOGY: ANY NEW CHANGE IN BOWEL CONTROL? NO . GENITOURINARY: ANY NEW CHANGE IN BLADDER CONTROL? NO . IS THERE A CHANCE YOU COULD BE ? NO . HEMATOLOGY/LYMPH: DO YOU TAKE ANY BLOOD THINNERS? (FOR EXAMPLE- COUMADIN, PLAVIX, AGGRENOX, PLATEL, PRADAXA, OR XARELTO) NO . WHEN WAS YOUR LAST DOSE? DATE: TIME: . NEUROLOGY: HAVE YOU FALLEN IN THE PAST 6 MONTHS? NO . ANY NEW EXTREMITY NUMBNESS OR WEAKNESS? NO . CARDIOLOGY: DO YOU HAVE A PACEMAKER OR DEFIBRILLATOR? NO . RESPIRATORY: HAVE YOU BEEN SICK IN THE PAST WEEK? NO . FEVER NO . FLU LIKE SYMPTOMS? NO . COUGH NO . INTEGUMENTARY: DO YOU HAVE ANY RASHES OR OPEN SORES? NO . ALLERGIC/IMMUNO: ARE YOU ALLERGIC TO SHELLFISH OR IV DYE? NO . ANY NEW ALLERGIES? NO . PSYCHIATRIC: DO YOU HAVE THOUGHTS OF HURTING YOURSELF OR SOMEONE ELSE? NO . ARE YOU ABUSED, NEGLECTED, OR IN AN UNSAFE ENVIRONMENT? NO . ENDOCRINOLOGY: ARE YOU DIABETIC? NO . OTHER: DO YOU NEED ANY PRESCRIPTIONS? NO . IF YES, PLEASE LIST: ____ . ANY NEW PROBLEMS WITH YOUR MEDICATIONS? NO . WHEN DID YOU LAST EAT? 7PM . WHEN DID YOU LAST DRINK? 730 AM . WHAT DID YOU LAST DRINK? WATER . NAME OF PERSON DRIVING YOU HOME? CONRAD . DO YOU HAVE ANY OTHER QUESTIONS OR CONCERNS NO . VITAL SIGNS WT 326.6 LBS, HT 68 IN, BMI 49.65 INDEX, BP 149/78 MM HG, HR 75 /MIN, RR 18 /MIN, TEMP 98.1 F, OXYGEN SAT % 96%, NA INITIALS TL 1049, REVIEWED BY: NL. ASSESSMENTS SACROILIITIS, NOT ELSEWHERE CLASSIFIED - M46.1 (PRIMARY) PROCEDURES PN SI PRE PROCEDURE DIAGNOSIS SACROILIITIS, SACROILIAC JOINT DYSFUNCTION POST PROCEDURE DIAGNOSIS SACROILIITIS, SACROILIAC JOINT DYSFUNCTION PROCEDURE BILATERAL SACROILIAC JOINT BLOCK SURGEON DR. DIONISIO URBINA DISTILLING DEPARTMENT SUPERVISOR NONE ANESTHESIA LOCAL PRE PROCEDURE NOTE PATIENT WITH HISTORY OF CHRONIC LOW BACK PAIN. I EVALUATED THE PATIENT AND REVIEWED THE CHART. I WENT OVER THE RISKS, ALTERNATIVES, AND BENEFITS ASSOCIATED WITH THIS PROCEDURE. THE PATIENT WOULD LIKE TO PROCEED AND GAVE CONSENT TO PERFORM THE PROCEDURE. THE PATIENT DENIES UNEXPLAINABLE WEIGHT LOSS, FEVER, CHILLS, OR NEW CHANGES IN URINARY OR BOWEL CONTROL DESCRIPTION OF PROCEDURE THE PATIENT WAS BROUGHT TO THE PROCEDURE ROOM AND PLACED IN THE PRONE POSITION. THE LUMBOSACRAL AREA WAS CLEANED WITH CHLORAPREP SOLUTION AND DRAPED ASEPTICALLY. THE PROCEDURE WAS DONE UNDER STERILE CONDITIONS. I CHECKED LATERALITY AND THE LEVEL WHERE THE PROCEDURE WAS GOING TO BE PERFORMED WITH THE PATIENT AND THE SUPPORTING STAFF AT THE MOMENT OF THE TIME OUT IN THE PROCEDURE ROOM. UNDER FLUOROSCOPIC GUIDANCE, TARGET POINT WAS SELECTED AT THE LOWER BORDER OF THE RIGHT AND LEFT SACROILIAC JOINT. TARGET POINT WAS SELECTED AFTER MEDIAL ROTATION AND TILT OF THE MAGNIFIER OF THE C-ARM. LIDOCAINE WAS USED TO NUMB THE SKIN AND SUBCUTANEOUS TISSUE BELOW IT. A SPINAL NEEDLE, 22-GAUGE, WAS ADVANCED UNDER FLUOROSCOPIC GUIDANCE AND FOLLOWING PATIENT FEEDBACK UNTIL THE TARGET AREA WAS TOUCHED. THE POSITION OF THE NEEDLE WAS VERIFIED WITH AP AND LATERAL VIEWS. AFTER PROPER POSITION OF THE NEEDLE WAS ACHIEVED, ISOVUE M DYE 30%, 0.25 ML, WAS INJECTED SHOWING SPREAD OF THE DYE. THEN, A SOLUTION OF 20 MG OF KENALOG WAS INJECTED IN RIGHT JOINT WITH 3 ML OF BUPIVACAINE 0.125%. THERE WAS NO EVIDENCE OF BLOOD, PARESTHESIA OR CEREBROSPINAL FLUID DURING THE PROCEDURE. THE PATIENT WAS SENT TO THE RECOVERY ROOM. THE PATIENT WAS MOVING THE EXTREMITIES AND DOING WELL. THERE WAS NO COMPLICATION DURING THE PROCEDURE. FLUOROSCOPY TIME WAS 47 SECONDS POST PROCEDURE NOTE THE PATIENT WILL BE SEEN IN A FOLLOW UP IN THE NEXT FEW WEEKS. INSTRUCTIONS WERE GIVEN, QUESTIONS WERE ANSWERED, AND THE PATIENT EXPRESSED UNDERSTANDING AND AGREED WITH THE PLAN. I, IVONNE CABRAL, DOCUMENTED THE ABOVE INFORMATION ACTING A SCRIBE FOR DR. URBINA. I HAVE REVIEWED THE ABOVE DOCUMENT, WRITTEN BY IVONNE VILLARREAL AND I VERIFY THAT IT IS ACCURATE DIAGNOSTIC IMAGING [facility] FLUORO GUIDANCE (PAIN)[id number] PROCEDURE CODES 26137 INJECT SACROILIAC JOINT 6045F RADXPS IN END [id number] PXD DISPOSITION & COMMUNICATION FOLLOW UP 3 WEEKS ELECTRONICALLY SIGNED BY DIONISIO URBINA MD ON 03/05/2017 AT 08:24 PM EDT DISCLAIMER : THIS IS A VISIT SUMMARY EXTRACTED FROM THE [employer] CHART. IT IS NOT A COPY OF THE [employer] PROGRESS NOTE. DHIRAJ
== END | disposition home or self-care (01) ==
LOC: M PAIN 11:00
PROVIDERS: ATTEND Anesthesiology
DX: G89.29 Other chronic pain (principal); M46.1 Sacroiliitis, not elsewhere classified; F42.9 Obsessive-compulsive disorder, unspecified; F43.10 Post-traumatic stress disorder, unspecified; F33.9 Major depressive disorder, recurrent, unspecified; F41.9 Anxiety disorder, unspecified; M51.9 Unspecified thoracic, thoracolumbar and lumbosacral intervertebral disc disorder; M19.90 Unspecified osteoarthritis, unspecified site; F11.21 Opioid dependence, in remission; E66.9 Obesity, unspecified; Z79.899 Other long term (current) drug therapy; Z88.8 Allergy status to other drugs, medicaments and biological substances; Z87.891 Personal history of nicotine dependence
CPT/HCPCS: 27096; J3301; Q9967

== ENCOUNTER → 2017-03-19 | Outpatient (CLI) | payer OTHER ==
[~2017-03-19] MED LIST changes: -ACETAMINOPHEN 500 MG TAB As Ordered ONE; -ACETAMINOPHEN 500 MG TAB PO ONE; -BUPIVACAINE HCL 0.25% 30 ML VIAL As Ordered ONE; -ISOVUE-M 300 61% 15ML VIAL (Q9967) As Ordered ONE; -LIDOCAINE 1% SDV INJ 30 ML VIAL As Ordered ONE; -TRIAMCINOLONE ACETONIDE SUSP 40 MG/ML VIAL (J3301) As Ordered ONE; -diazePAM 5 MG TAB As Ordered ONE
--- NOTE | 2017-03-25 10:10 | SLEEPCENT ---
DATE OF PROCEDURE: 03/19/2017 REFERRING PHYSICIAN: Rebecca Rodas Nocturnal polysomnography was performed due to concern for the obstructive sleep syndrome in a patient with a complex past medical history. 7 hours and 22 minutes of data were reviewed. There were 419 minutes of sleep identified. Sleep latency was normal at 11 minutes. Rapid eye movement (REM) latency mildly prolonged at 144 minutes. Sleep architecture was fair but progression was poor late in the study. Overall sleep efficiency was good at 95.5%. The patient's EKG shows a sinus rhythm with an average heart rate of 58 beats per minute. EEG showed reasonably normal waveforms for awake and sleep. There were 17 respiratory events identified of 10 seconds in duration or greater for an apnea/hypopnea index within normal limits of 2.4. Some snoring was appreciated. Arousals from respiratory events occurred only 0.7 times per hour and oxygen desaturations were not appreciated. Some limb activity was noted, but there were few limb movement arousals. Remaining measures of sleep physiology were normal. IMPRESSION: Normal nocturnal polysomnography with snoring.
== END ==
LOC: M SLEEP 20:00
PROVIDERS: ATTEND Nurse Practitioner Adult Health
DX: G47.30 Sleep apnea, unspecified (principal)

== ENCOUNTER 2017-04-12 14:22 | Emergency (ER) | payer OTHER ==
[~2017-04-12] VITALS: Ht 172.7 cm; Wt 141.8 kg
[~2017-04-12 14:22] MED LIST changes: -NAPR500T PO; -ZOLO100T PO
[2017-04-12] MEDS ORDERED: ZOLO100T PO (14:30)
[2017-04-12] MEDS ORDERED: NAPR500T PO (15:45)
--- NOTE | 2017-04-12 15:57 | REP ---
LEFT KNEE , FIVE VIEWS: HISTORY: Trauma. There is no acute fracture or dislocation. The joint spaces are normal in appearance. IMPRESSION: There is no acute fracture or dislocation. Signed by Rikki Hinkle MD 04/12/2017 03:59 P
[2017-04-12 16:04] VITALS: BP 138/72
== END 2017-04-12 16:06 | disposition home or self-care (01) ==
LOC: M ED 14:22
DX: M25.562 Pain in left knee (principal); E66.01 Morbid (severe) obesity due to excess calories; F19.10 Other psychoactive substance abuse, uncomplicated; Z88.8 Allergy status to other drugs, medicaments and biological substances; Z79.899 Other long term (current) drug therapy

== ENCOUNTER → 2017-04-12 | Outpatient (CLI) | payer OTHER ==
--- NOTE | 2017-04-21 00:50 | ECWPNPC ---
PATIENT NAME: CONRAD LI : 1990 GENDER: MALE VISIT DATE: 04/12/2017 DISCHARGE DATE: 04/12/17 1349 VISIT LOCKED DATE TIME: PHYSICIAN: DENISE GONZALES RESOURCE: DENISE GONZALES HISTORY OF PRESENT ILLNESS HISTORY OF PRESENT ILLNESS: HERE FOR POST PROCEDURE F/U.HAD BILAT. SIJ INJECTION ON 02-23-17.REPORTS >50% IMPROVEMENT X TWO WEEKS POST PROCEDURE THEN PAIN HAS RETURNED TO BASELINE.REPORTS CONSTANT ACHING PAIN ACROSS LOW BACK.PAIN IS AGGREVATED BY PROLONGED STANDING OR SITTING.RELIEVED SOMEWHAT WITH IBUPROFEN 600MG PRN AND LAYING DOWN.RATING PAIN VAS 5/10. PAIN THE PATIENT DESCRIBES THE PAIN... FALL RISK SCREENING: SCREENING :NO FALLS IN THE PAST YEAR CURRENT MEDICATIONS TAKING SUBOXONE 8-2 MG FILM 1 FILM UNDER THE TONGUE AND ALLOW TO DISSOLVE SUBLINGUAL ONCE A DAY TAKING ZOLOFT 100 MG TABLET 1&1/2 TABLET ORALLY ONCE A DAY TAKING FLONASE ALLERGY RELIEF 50 MCG/ACT SUSPENSION 1 SPRAY IN EACH NOSTRIL NASALLY ONCE A DAY TAKING KNEE BRACE ADJUSTABLE HINGED - MISCELLANEOUS DIRECTED DX: S86.912A DAILY MEDICATION LIST REVIEWED AND RECONCILED WITH THE PATIENT PAST MEDICAL HISTORY HX OF HEROIN USE HX OF OPIOID ABUSE LOW BACK PAIN OCD PTSD MANIC DEPRESSION ADJUSTMENT DISORDER SOCIAL ANXIETY ANXIETY DDD ARTHRITIS OBESITY ALLERGIES GABAPENTIN: EDEMA: SIDE EFFECTS SURGICAL HISTORY CARPAL TUNNEL RELEASE BILATERAL HERNIA REPAIR-LEFT INGUINAL T & A HOSPITALIZATION/MAJOR DIAGNOSTIC PROCEDURE [facility] FOR [facility] DRUG ADDICTION. 10/08-11/09/2016 [facility] 10/2012 REVIEW OF SYSTEMS REVIEWED BY: PROVIDER: DENISE GONZALES DIETETICS DIRECTOR . CONSTITUTIONAL: ANY CHANGE IN YOUR MEDICAL CONDITION? NO . CHILLS NO . FEVER NO . INFECTION: DO YOU HAVE NEW INFECTIONS? NO . DO YOU HAVE HISTORY OF MRSA? NO . MUSCULOSKELETAL: ANY NEW PATTERNS OF PAIN OR NUMBNESS? NO . GASTROENTEROLOGY: ANY NEW CHANGE IN BOWEL CONTROL? NO . GENITOURINARY: ANY NEW CHANGE IN BLADDER CONTROL? NO . IS THERE A CHANCE YOU COULD BE ? NO . HEMATOLOGY/LYMPH: DO YOU TAKE ANY BLOOD THINNERS? (FOR EXAMPLE- COUMADIN, PLAVIX, AGGRENOX, PLATEL, PRADAXA, OR XARELTO) NO . WHEN WAS YOUR LAST DOSE? DATE: TIME: . NEUROLOGY: HAVE YOU FALLEN IN THE PAST 6 MONTHS? NO . ANY NEW EXTREMITY NUMBNESS OR WEAKNESS? NO . CARDIOLOGY: DO YOU HAVE A PACEMAKER OR DEFIBRILLATOR? NO . RESPIRATORY: HAVE YOU BEEN SICK IN THE PAST WEEK? NO . FEVER NO . FLU LIKE SYMPTOMS? NO . COUGH NO . INTEGUMENTARY: DO YOU HAVE ANY RASHES OR OPEN SORES? NO . ALLERGIC/IMMUNO: ARE YOU ALLERGIC TO SHELLFISH OR IV DYE? NO . ANY NEW ALLERGIES? NO . PSYCHIATRIC: DO YOU HAVE THOUGHTS OF HURTING YOURSELF OR SOMEONE ELSE? NO . ARE YOU ABUSED, NEGLECTED, OR IN AN UNSAFE ENVIRONMENT? NO . ENDOCRINOLOGY: ARE YOU DIABETIC? NO . OTHER: DO YOU NEED ANY PRESCRIPTIONS? NO . IF YES, PLEASE LIST: ____ . ANY NEW PROBLEMS WITH YOUR MEDICATIONS? NO . WHEN DID YOU LAST EAT? ____ . WHEN DID YOU LAST DRINK? ____ . WHAT DID YOU LAST DRINK? ____ . NAME OF PERSON DRIVING YOU HOME? ____ . DO YOU HAVE ANY OTHER QUESTIONS OR CONCERNS YES, PT C/O LEFT KNEE PAIN WORSENING, ASKING FOR GUIDANCE . VITAL SIGNS WT 314 LBS, HT 68 IN, BMI 47.74 INDEX, BP 144/79 MM HG, HR 88 /MIN, RR 16 /MIN, TEMP 97.2 F, OXYGEN SAT % 98, REVIEWED BY: EM. EXAMINATION GENERAL EXAMINATION: GENERAL APPEARANCE:COMFORTABLE/OBESE. PSYCHAFFECT NORMAL. HEENT:NORMOCEPHALIC. NECK:NO LYMPHADENOPATHY, NO MASS. LUNGS:LUNG SOUNDS ARE CLEAR.RESPIRATIONS-NON LABORED. HEART:S1, S2 IN A REGULAR RATE AND RHYTHM. NO SIGNIFICANT MURMURS, RUBS OR GALLOPS NOTED. BACK:TENDER OVER MID AND LOWER THORACIC.ROJM SPINE IS FULL WITH INCRESSE IN PAIN WITH FLEXION AND EXTENSION.MUSCLE STRENGTH 5/5 BILAT.LE.REPORTING NORMAL SENSATION TO LIGHT TOUCH BILAT.LE.POINT TENDERNESS OVER BILATERAL SIJ L>R. DIAGNOSTIC DATA-XRAY L/S [id number]-REVIEWEDMRI L/S [id number]-[id number]-REVIEWED. ASSESSMENTS LOW BACK PAIN AT MULTIPLE SITES - M54.5 (PRIMARY) BILATERAL SACROILIITIS - M46.1 TREATMENT LOW BACK PAIN AT MULTIPLE SITES NOTES: BILAT. SIJ, PATIENT WAS ADVISED TO START A WALKING PROGRAM TO STRENGTHEN LUMBAR PARASPINAL MUSCLES AND IMPROVE MOBILITY. THEY WERE ADVISED THAT THIS WILL IMPROVE WEIGHT LOSS AND ALSO DEPRESSION/FIBROMYALGIA SYMPTOMS. ADVISED TO WALK 10 MINUTES EVERY OTHER DAY ON A FLAT SURFACE. EMPHASIZED THE IMPORTANCE OF DOING THIS CONSISTANTLY AND NOT SPORATICALLY TO AVOID INJURY. STRONG ADVISED NOT TO DO MORE THAN 10 MINUTES EVERY OTHER DSY FOR THE FIRST 4 WEEKS. PREVENTIVE MEDICINE PAIN CLINIC TEACHING: PROCEDURE TEACHING PRE-PROCEDURE TEACHING DONE. PATIENT VERBALIZES UNDERSTANDING.. PROCEDURE CODES FA211 ESTABILISHED PATIENT [facility] CHARGE DISPOSITION & COMMUNICATION FOLLOW UP 2WK POST (REASON: BILAT. SIJ) ELECTRONICALLY SIGNED BY KAN CARDENAS ON 04/20/2017 AT 06:46 PM EDT DISCLAIMER : THIS IS A VISIT SUMMARY EXTRACTED FROM THE [employer] CHART. IT IS NOT A COPY OF THE [employer] PROGRESS NOTE. DHIRAJ
== END | disposition home or self-care (01) ==
LOC: M PAIN 13:00
PROVIDERS: ATTEND Nurse Practitioner Family
DX: G89.29 Other chronic pain (principal); M54.5 Low back pain; M46.1 Sacroiliitis, not elsewhere classified; F42.9 Obsessive-compulsive disorder, unspecified; F43.10 Post-traumatic stress disorder, unspecified; F33.9 Major depressive disorder, recurrent, unspecified; F43.20 Adjustment disorder, unspecified; F41.9 Anxiety disorder, unspecified; M51.9 Unspecified thoracic, thoracolumbar and lumbosacral intervertebral disc disorder; M19.90 Unspecified osteoarthritis, unspecified site; E66.9 Obesity, unspecified; F11.21 Opioid dependence, in remission; Z79.899 Other long term (current) drug therapy; Z88.8 Allergy status to other drugs, medicaments and biological substances

== ENCOUNTER → 2017-04-26 | Outpatient (CLI) | payer OTHER ==
[~2017-04-26] MED LIST changes: +BUPIVACAINE HCL 0.25% 30 ML VIAL As Ordered ONE; +ISOVUE-M 300 61% 15ML VIAL (Q9967) As Ordered ONE; +LIDOCAINE 1% SDV INJ 30 ML VIAL As Ordered ONE; +NAPR500T PO; +TRIAMCINOLONE ACETONIDE SUSP 40 MG/ML VIAL (J3301) As Ordered ONE; +ZOLO100T PO; +methylPREDNISolone SUSP 40 MG/ML (DEPO-medrol) VIAL (J1030) As Ordered ONE
--- NOTE | 2017-04-26 14:24 | REP ---
Partial SI joint series: Two views. History: Bilateral SI joint injection for pain. 34 seconds of fluoroscopy time is reported. Findings: A sequence of two last image hold fluoroscopic spot radiographs of the SI joints document needle position and contrast injection associated with SI joint injection procedure. Signed by Elliot Fish MD 04/26/2017 05:24 P
--- NOTE | 2017-04-27 00:03 | ECWPNPC ---
PATIENT NAME: CONRAD LI : 1990 GENDER: MALE VISIT DATE: 04/26/2017 DISCHARGE DATE: 04/26/17 1235 VISIT LOCKED DATE TIME: PHYSICIAN: DIONISIO URBINA RESOURCE: DIONISIO URBINA REASON FOR APPOINTMENT 1. DAYAN SIJ HISTORY OF PRESENT ILLNESS HISTORY OF PRESENT ILLNESS: PAIN THE PATIENT DESCRIBES THE PAIN... THE PATIENT DESCRIBES THE PAIN... PAIN THE PATIENT DESCRIBES THE PAIN... THE PATIENT DESCRIBES THE PAIN... FALL RISK SCREENING: SCREENING :NO FALLS IN THE PAST YEAR :NO FALLS IN THE PAST YEAR SCREENING :NO FALLS IN THE PAST YEAR :NO FALLS IN THE PAST YEAR CURRENT MEDICATIONS TAKING SUBOXONE 8-2 MG FILM 1 FILM UNDER THE TONGUE AND ALLOW TO DISSOLVE SUBLINGUAL ONCE A DAY, NOTES: 04-26-17 0800 TAKING ZOLOFT 100 MG TABLET 1&1/2 TABLET ORALLY ONCE A DAY, NOTES: 04-26-17544 TAKING FLONASE ALLERGY RELIEF 50 MCG/ACT SUSPENSION 1 SPRAY IN EACH NOSTRIL NASALLY ONCE A DAY, NOTES: 04-26-17544 TAKING KNEE BRACE ADJUSTABLE HINGED - MISCELLANEOUS DIRECTED DX: S86.912A DAILY TAKING NAPROXEN 500 MG TABLET 1 TABLET NEEDED ORALLY EVERY 12 HRS, NOTES: 04-26-17544 MEDICATION LIST REVIEWED AND RECONCILED WITH THE PATIENT PAST MEDICAL HISTORY HX OF HEROIN USE HX OF OPIOID ABUSE LOW BACK PAIN OCD PTSD MANIC DEPRESSION ADJUSTMENT DISORDER SOCIAL ANXIETY ANXIETY DDD ARTHRITIS OBESITY ALLERGIES GABAPENTIN: EDEMA: SIDE EFFECTS REVIEW OF SYSTEMS REVIEWED BY: PROVIDER: , . CONSTITUTIONAL: ANY CHANGE IN YOUR MEDICAL CONDITION? NO, NO . CHILLS NO, NO . FEVER NO, NO . INFECTION: DO YOU HAVE NEW INFECTIONS? NO, NO . DO YOU HAVE HISTORY OF MRSA? NO, NO . MUSCULOSKELETAL: ANY NEW PATTERNS OF PAIN OR NUMBNESS? NO, NO . GASTROENTEROLOGY: ANY NEW CHANGE IN BOWEL CONTROL? NO, NO . GENITOURINARY: ANY NEW CHANGE IN BLADDER CONTROL? NO, NO . IS THERE A CHANCE YOU COULD BE ? NO, NO . HEMATOLOGY/LYMPH: DO YOU TAKE ANY BLOOD THINNERS? (FOR EXAMPLE- COUMADIN, PLAVIX, AGGRENOX, PLATEL, PRADAXA, OR XARELTO) NO, NO . WHEN WAS YOUR LAST DOSE? DATE: TIME: , DATE: TIME: . NEUROLOGY: HAVE YOU FALLEN IN THE PAST 6 MONTHS? NO, NO . ANY NEW EXTREMITY NUMBNESS OR WEAKNESS? NO, NO . CARDIOLOGY: DO YOU HAVE A PACEMAKER OR DEFIBRILLATOR? NO, NO . RESPIRATORY: HAVE YOU BEEN SICK IN THE PAST WEEK? NO, NO . FEVER NO, NO . FLU LIKE SYMPTOMS? NO, NO . COUGH NO, NO . INTEGUMENTARY: DO YOU HAVE ANY RASHES OR OPEN SORES? NO, NO . ALLERGIC/IMMUNO: ARE YOU ALLERGIC TO SHELLFISH OR IV DYE? NO, NO . ANY NEW ALLERGIES? NO, NO . PSYCHIATRIC: DO YOU HAVE THOUGHTS OF HURTING YOURSELF OR SOMEONE ELSE? NO, NO . ARE YOU ABUSED, NEGLECTED, OR IN AN UNSAFE ENVIRONMENT? NO, NO . ENDOCRINOLOGY: ARE YOU DIABETIC? NO, NO . OTHER: DO YOU NEED ANY PRESCRIPTIONS? NO, NO . IF YES, PLEASE LIST: ____, ____ . ANY NEW PROBLEMS WITH YOUR MEDICATIONS? NO, NO . WHEN DID YOU LAST EAT? ____, ____LAST NIGHT 8 PM . WHEN DID YOU LAST DRINK? WATER . WHAT DID YOU LAST DRINK? ____, ____THIS MORNING 8 AM . NAME OF PERSON DRIVING YOU HOME? ____, ____RICHARD SR FATHER . DO YOU HAVE ANY OTHER QUESTIONS OR CONCERNS NO, NO . VITAL SIGNS WT 314 LBS, HT 68 IN, BMI 47.74 INDEX, BP 140/76 MM HG, HR 82 /MIN, RR 18 /MIN, TEMP 97.2 F, OXYGEN SAT % 94%, NA INITIALS SC 11:31, REVIEWED BY: KG. ASSESSMENTS SACROILIITIS, NOT ELSEWHERE CLASSIFIED - M46.1 (PRIMARY) PROCEDURES PN SI PRE PROCEDURE DIAGNOSIS SACROILIITIS, SACROILIAC JOINT DYSFUNCTION POST PROCEDURE DIAGNOSIS SACROILIITIS, SACROILIAC JOINT DYSFUNCTION PROCEDURE BILATERAL SACROILIAC JOINT BLOCK SURGEON DR. DIONISIO URBINA FREIGHT UNLOADER NONE ANESTHESIA LOCAL PRE PROCEDURE NOTE PATIENT WITH HISTORY OF CHRONIC LOW BACK PAIN. I EVALUATED THE PATIENT AND REVIEWED THE CHART. I WENT OVER THE RISKS, ALTERNATIVES, AND BENEFITS ASSOCIATED WITH THIS PROCEDURE. THE PATIENT WOULD LIKE TO PROCEED AND GAVE CONSENT TO PERFORM THE PROCEDURE. THE PATIENT DENIES UNEXPLAINABLE WEIGHT LOSS, FEVER, CHILLS, OR NEW CHANGES IN URINARY OR BOWEL CONTROL DESCRIPTION OF PROCEDURE THE PATIENT WAS BROUGHT TO THE PROCEDURE ROOM AND PLACED IN THE PRONE POSITION. THE LUMBOSACRAL AREA WAS CLEANED WITH CHLORAPREP SOLUTION AND DRAPED ASEPTICALLY. THE PROCEDURE WAS DONE UNDER STERILE CONDITIONS. I CHECKED LATERALITY AND THE LEVEL WHERE THE PROCEDURE WAS GOING TO BE PERFORMED WITH THE PATIENT AND THE SUPPORTING STAFF AT THE MOMENT OF THE TIME OUT IN THE PROCEDURE ROOM. UNDER FLUOROSCOPIC GUIDANCE, TARGET POINT WAS SELECTED AT THE LOWER BORDER OF THE RIGHT AND LEFT SACROILIAC JOINT. TARGET POINT WAS SELECTED AFTER MEDIAL ROTATION AND TILT OF THE MAGNIFIER OF THE C-ARM. LIDOCAINE WAS USED TO NUMB THE SKIN AND SUBCUTANEOUS TISSUE BELOW IT. A SPINAL NEEDLE, 22-GAUGE, WAS ADVANCED UNDER FLUOROSCOPIC GUIDANCE AND FOLLOWING PATIENT FEEDBACK UNTIL THE TARGET AREA WAS TOUCHED. THE POSITION OF THE NEEDLE WAS VERIFIED WITH AP AND LATERAL VIEWS. AFTER PROPER POSITION OF THE NEEDLE WAS ACHIEVED, ISOVUE M DYE 30%, 0.25 ML, WAS INJECTED SHOWING SPREAD OF THE DYE. THEN, A SOLUTION OF 20 MG OF KENALOG WAS INJECTED IN RIGHT JOINT WITH 3 ML OF BUPIVACAINE 0.125%. THERE WAS NO EVIDENCE OF BLOOD, PARESTHESIA OR CEREBROSPINAL FLUID DURING THE PROCEDURE. THE PATIENT WAS SENT TO THE RECOVERY ROOM. THE PATIENT WAS MOVING THE EXTREMITIES AND DOING WELL. THERE WAS NO COMPLICATION DURING THE PROCEDURE. FLUOROSCOPY TIME WAS 34 SECONDS POST PROCEDURE NOTE THE PATIENT WILL BE SEEN IN A FOLLOW UP IN THE NEXT FEW WEEKS. INSTRUCTIONS WERE GIVEN, QUESTIONS WERE ANSWERED, AND THE PATIENT EXPRESSED UNDERSTANDING AND AGREED WITH THE PLAN. I, IVONNE CABRAL, DOCUMENTED THE ABOVE INFORMATION ACTING A SCRIBE FOR DR. URBINA. I HAVE REVIEWED THE ABOVE DOCUMENT, WRITTEN BY IVONNE VILLARREAL AND I VERIFY THAT IT IS ACCURATE DIAGNOSTIC IMAGING [facility] FLUORO GUIDANCE (PAIN)[id number] PROCEDURE CODES 76026 INJECT SACROILIAC JOINT 6045F RADXPS IN END [id number] PXD DISPOSITION & COMMUNICATION FOLLOW UP 3 WEEKS ELECTRONICALLY SIGNED BY DIONISIO URBINA MD ON 04/26/2017 AT 09:24 PM EDT DISCLAIMER : THIS IS A VISIT SUMMARY EXTRACTED FROM THE [employer] CHART. IT IS NOT A COPY OF THE [employer] PROGRESS NOTE. MTDD
== END ==
LOC: M PAIN 10:45
PROVIDERS: ATTEND Anesthesiology
DX: G89.29 Other chronic pain (principal); M46.1 Sacroiliitis, not elsewhere classified; M54.5 Low back pain; Z79.899 Other long term (current) drug therapy; Z88.8 Allergy status to other drugs, medicaments and biological substances
CPT/HCPCS: 27096; J1030; J3301; Q9967

== ENCOUNTER → 2017-05-10 | Outpatient (CLI) | payer OTHER ==
[~2017-05-10] MED LIST changes: -BUPIVACAINE HCL 0.25% 30 ML VIAL As Ordered ONE; -ISOVUE-M 300 61% 15ML VIAL (Q9967) As Ordered ONE; -LIDOCAINE 1% SDV INJ 30 ML VIAL As Ordered ONE; -TRIAMCINOLONE ACETONIDE SUSP 40 MG/ML VIAL (J3301) As Ordered ONE; -methylPREDNISolone SUSP 40 MG/ML (DEPO-medrol) VIAL (J1030) As Ordered ONE
--- NOTE | 2017-05-30 02:29 | ECWPNPC ---
PATIENT NAME: CONRAD LI : 1990 GENDER: MALE VISIT DATE: 05/10/2017 DISCHARGE DATE: 05/10/17 1503 VISIT LOCKED DATE TIME: PHYSICIAN: DENISE GONZALES RESOURCE: DENISE GONZALES REASON FOR APPOINTMENT 1. POST SIJ HISTORY OF PRESENT ILLNESS HISTORY OF PRESENT ILLNESS: HERE FOR POST PROCEDURE F/U.HAD BILAT. SIJ INJECTION ON 04-26-17.REPORTS >50% IMPROVEMENT X TWO WEEKS POST PROCEDURE THEN PAIN HAS RETURNED TO BASELINE.REPORTS CONSTANT ACHING PAIN ACROSS LOW BACK.PAIN IS AGGREVATED BY PROLONGED STANDING OR SITTING.RELIEVED SOMEWHAT WITH IBUPROFEN 600MG PRN AND LAYING DOWN.RATING PAIN VAS 3/10. PAIN THE PATIENT DESCRIBES THE PAIN... THE PATIENT DESCRIBES THE PAIN... FALL RISK SCREENING: SCREENING :NO FALLS IN THE PAST YEAR CURRENT MEDICATIONS TAKING SUBOXONE 8-2 MG FILM 1 FILM UNDER THE TONGUE AND ALLOW TO DISSOLVE SUBLINGUAL ONCE A DAY TAKING ZOLOFT 100 MG TABLET 1&1/2 TABLET ORALLY ONCE A DAY TAKING FLONASE ALLERGY RELIEF 50 MCG/ACT SUSPENSION 1 SPRAY IN EACH NOSTRIL NASALLY ONCE A DAY TAKING KNEE BRACE ADJUSTABLE HINGED - MISCELLANEOUS DIRECTED DX: S86.912A DAILY NOT-TAKING NAPROXEN 500 MG TABLET 1 TABLET NEEDED ORALLY EVERY 12 HRS MEDICATION LIST REVIEWED AND RECONCILED WITH THE PATIENT PAST MEDICAL HISTORY HX OF HEROIN USE HX OF OPIOID ABUSE LOW BACK PAIN OCD PTSD MANIC DEPRESSION ADJUSTMENT DISORDER SOCIAL ANXIETY ANXIETY DDD ARTHRITIS OBESITY ALLERGIES GABAPENTIN: EDEMA: SIDE EFFECTS SOCIAL HISTORY GENERAL: TOBACCO USE ARE YOU A:FORMER SMOKER QUIT 01/06/17 SMOKING CESSATION INFORMATION GIVEN12/07/2016 ALCOHOL SCREENING DID YOU HAVE A DRINK CONTAINING ALCOHOL IN THE PAST YEAR?YES POINTS5 INTERPRETATIONPOSITIVE HOW OFTEN DID YOU HAVE A DRINK CONTAINING ALCOHOL IN THE PAST YEAR?TWO TO FOUR TIMES A MONTH (2 POINTS) HOW MANY DRINKS DID YOU HAVE ON A TYPICAL DAY WHEN YOU WERE DRINKING IN THE PAST YEAR?5 OR 6 (2 POINTS) HOW OFTEN DID YOU HAVE SIX OR MORE DRINKS ON ONE OCCASION IN THE PAST YEAR?LESS THAN MONTHLY (1 POINT) RECREATIONAL DRUG USE DRUG USE?YES COCAINE, MARIJUANA, CRACK, HEROIN, OPIATES, HOW OFTEN AND HOW MUCH? NOT USING AT THIS TIME--HE IS IN A HALF WAY HOUSE AND HAS BEEN CLEAN FOR 3 MONTHS CAFFEINE CAFFEINE USE?YES HOW OFTEN AND HOW MUCH? POT OF COFFEE, 2 ENERGY DRINKS/DAILY SEXUAL HX HAD SEX IN THE LAST 12 MONTHS (VAGINAL, ORAL, OR ANAL)?YES WITHWOMEN ONLY USE PROTECTION?NO PREVENTION STRATEGIES DISCUSSED:OTHER HAVE YOU EVER HAD AN STD?NO HIV / HEP-C SCREENING HIV TEST OFFERED TO PATIENT:YES DATE OFFERED:12/07/2016 TEST ACCEPTED:NO REASON:OTHER (DOCUMENT IN NOTE) DECLINES NEGATIVE IN THE PAST. HEP-C TEST OFFERED TO PATIENT:NO OCCUPATION: [employer] AND [employer]. DIET: REGULAR. EXERCISE: NONE. MARITAL STATUS: SINGLE. OTHERS AT HOME: OTHER NON-RELATIVE. PETS: 1 DOG. LATTER-DAY [id number] CHRISTIANITY LANGUAGE LANGUAGES SPOKEN:KYRGYZ EDUCATION LEVEL OF EDUCATION:NOT FINISHED COLLEGE LEARNING BARRIERS / SPECIAL NEEDS CHANGE FROM LAST VISIT?NO BARRIERS TO LEARNING?NO HEARING IMPAIRED?NO VISION IMPAIRED?NO COGNITIVELY IMPAIRED?YES HAS PROBLEMS FOCUSING READINESS TO LEARN?YES LEARNING PREFERENCES?YES :OTHER (PLEASE COMMENT) 'LIKES TO LISTEN' LEARNING CAPABILITIES PRESENT?YES EMOTIONAL BARRIERS?NO SPECIAL DEVICES?NO CONFIDENTIAL SECRETARY NEEDED?NO PAIN CLINIC PFS, CLERGY, PUBLIC HEALTH REFERRALS PFS REFERRAL NEEDED?NO CLERGY REFERRAL NEEDED?NO PUBLIC HEALTH REFERRAL NEEDED?NO HAS THE PATIENT BEEN EDUCATED REGARDING HIS/HER PLAN OF CARE?YES HAS THE PATIENT BEEN EDUCATED REGARDING PAIN, THE RISK FOR PAIN, THE IMPORTANCE OF EFFECTIVE PAIN MANAGEMENT, AND THE PAIN ASSESSMENT PROCESS?YES ADVANCE DIRECTIVES HEALTH CARE PROXY?NO WOULD YOU LIKE MORE INFORMATION?NO DO YOU HAVE A DNR?NO WOULD YOU LIKE MORE INFORMATION?NO LIVING WILL?NO WOULD YOU LIKE MORE INFORMATION?NO POWER OF METAL SPRAYER MACHINED PARTS?NO WOULD YOU LIKE MORE INFORMATION?NO COHABITATING: YEARS MONTHS. NO DOMESTIC VIOLENCE . PLAN OF CARE FOR THE PAIN CENTER REVIEWED WITH PATIENT AND HE VERBALIZED UNDERSTANDING. AD. REVIEW OF SYSTEMS REVIEWED BY: PROVIDER: DENISE OMER . CONSTITUTIONAL: ANY CHANGE IN YOUR MEDICAL CONDITION? NO . CHILLS NO . FEVER NO . INFECTION: DO YOU HAVE NEW INFECTIONS? NO . DO YOU HAVE HISTORY OF MRSA? NO . MUSCULOSKELETAL: ANY NEW PATTERNS OF PAIN OR NUMBNESS? NO . GASTROENTEROLOGY: ANY NEW CHANGE IN BOWEL CONTROL? NO . GENITOURINARY: ANY NEW CHANGE IN BLADDER CONTROL? NO . IS THERE A CHANCE YOU COULD BE ? NO . HEMATOLOGY/LYMPH: DO YOU TAKE ANY BLOOD THINNERS? (FOR EXAMPLE- COUMADIN, PLAVIX, AGGRENOX, PLATEL, PRADAXA, OR XARELTO) NO . WHEN WAS YOUR LAST DOSE? DATE: TIME: . NEUROLOGY: HAVE YOU FALLEN IN THE PAST 6 MONTHS? NO . ANY NEW EXTREMITY NUMBNESS OR WEAKNESS? NO . CARDIOLOGY: DO YOU HAVE A PACEMAKER OR DEFIBRILLATOR? NO . RESPIRATORY: HAVE YOU BEEN SICK IN THE PAST WEEK? NO . FEVER NO . FLU LIKE SYMPTOMS? NO . COUGH NO . INTEGUMENTARY: DO YOU HAVE ANY RASHES OR OPEN SORES? NO . ALLERGIC/IMMUNO: ARE YOU ALLERGIC TO SHELLFISH OR IV DYE? NO . ANY NEW ALLERGIES? NO . PSYCHIATRIC: DO YOU HAVE THOUGHTS OF HURTING YOURSELF OR SOMEONE ELSE? NO . ARE YOU ABUSED, NEGLECTED, OR IN AN UNSAFE ENVIRONMENT? NO . ENDOCRINOLOGY: ARE YOU DIABETIC? NO . OTHER: DO YOU NEED ANY PRESCRIPTIONS? NO . IF YES, PLEASE LIST: ____ . ANY NEW PROBLEMS WITH YOUR MEDICATIONS? NO . WHEN DID YOU LAST EAT? ____ . WHEN DID YOU LAST DRINK? ____ . WHAT DID YOU LAST DRINK? ____ . NAME OF PERSON DRIVING YOU HOME? ____ . DO YOU HAVE ANY OTHER QUESTIONS OR CONCERNS NO . VITAL SIGNS WT 308 LBS, HT 68 IN, BMI 46.83 INDEX, BP 137/84 MM HG, HR 95 /MIN, RR 18 /MIN, TEMP 97.7 F, OXYGEN SAT % 96%, NA INITIALS AW 1426, REVIEWED BY: CS. EXAMINATION GENERAL EXAMINATION: GENERAL APPEARANCE:COMFORTABLE/OBESE. PSYCHAFFECT NORMAL. HEENT:NORMOCEPHALIC. NECK:NO LYMPHADENOPATHY, NO MASS. LUNGS:LUNG SOUNDS ARE CLEAR.RESPIRATIONS-NON LABORED. HEART:S1, S2 IN A REGULAR RATE AND RHYTHM. NO SIGNIFICANT MURMURS, RUBS OR GALLOPS NOTED. BACK:TENDER OVER MID AND LOWER THORACIC.ROJM SPINE IS FULL WITH INCRESSE IN PAIN WITH FLEXION AND EXTENSION.MUSCLE STRENGTH 5/5 BILAT.LE.REPORTING NORMAL SENSATION TO LIGHT TOUCH BILAT.LE.TENDER WITH PALPATION OVER L/S SPINE AND LUMBAR PARASPINALS L>R. DIAGNOSTIC DATA-XRAY L/S [id number]-REVIEWEDMRI L/S [id number]-REVIEWED. ASSESSMENTS BILATERAL SACROILIITIS - M46.1 (PRIMARY) DISPLACEMENT OF LUMBAR DISC WITH RADICULOPATHY - M51.16 TREATMENT BILATERAL SACROILIITIS NOTES: L4/5 INTRALAMINAR LESI,WHAT IS LUMBAR EPIDURAL INJECTION? MATERIAL WAS PRINTED,LUMBAR EPIDURAL INJECTION: RECOVERY AT HOME MATERIAL WAS PRINTED, LUMBAR EPIDURAL INJECTION: YOUR PROCEDURE MATERIAL WAS PRINTED. PREVENTIVE MEDICINE PAIN CLINIC TEACHING: PROCEDURE TEACHING LUMBAR EPIDURAL STEROID INJECTION PRE-PROCEDURE TEACHING DONE. PATIENT VERBALIZES UNDERSTANDING.. PROCEDURE CODES FA211 ESTABILISHED PATIENT [facility] CHARGE DISPOSITION & COMMUNICATION FOLLOW UP 2WK POST (REASON: L4/5 INTRALAMINAR LESI) ELECTRONICALLY SIGNED BY KAN CARDENAS ON 05/29/2017 AT 07:58 AM EDT DISCLAIMER : THIS IS A VISIT SUMMARY EXTRACTED FROM THE [employer] CHART. IT IS NOT A COPY OF THE [employer] PROGRESS NOTE. DHIRAJ
== END ==
LOC: M PAIN 13:45
PROVIDERS: ATTEND Nurse Practitioner Family
DX: G89.29 Other chronic pain (principal); M46.1 Sacroiliitis, not elsewhere classified; M51.16 Intervertebral disc disorders with radiculopathy, lumbar region; R40.0 Somnolence; E78.1 Pure hyperglyceridemia; F11.20 Opioid dependence, uncomplicated; F14.10 Cocaine abuse, uncomplicated; F43.10 Post-traumatic stress disorder, unspecified; F43.23 Adjustment disorder with mixed anxiety and depressed mood; F30.9 Manic episode, unspecified; F41.9 Anxiety disorder, unspecified; F40.11 Social phobia, generalized; E66.01 Morbid (severe) obesity due to excess calories; Z68.42 Body mass index [BMI] 45.0-49.9, adult; Z88.8 Allergy status to other drugs, medicaments and biological substances; Z79.899 Other long term (current) drug therapy; Z87.891 Personal history of nicotine dependence

== ENCOUNTER → 2017-05-24 | Outpatient (CLI) | payer OTHER ==
[~2017-05-24] MED LIST changes: +ISOVUE-M 300 61% 15ML VIAL (Q9967) As Ordered ONE; +LIDOCAINE 1% SDV INJ 30 ML VIAL As Ordered ONE; +methylPREDNISolone SUSP 40 MG/ML (DEPO-medrol) VIAL (J1030) As Ordered ONE
--- NOTE | 2017-05-24 15:24 | REP ---
FLUORO GUIDED SPINAL INJECTION: The images were reviewed with Dr. Grace. The patient has a history of low back pain. The portable C-arm was provided in the OR for Dr. Fernandez for fluoroscopic guidance. Two intraoperative fluoroscopic spot films are obtained for needle placement verification for right lumbar epidural injection. The films are on the PACS system and are available for review. 29 seconds of fluoroscopy time was utilized for this procedure. Reviewed by LJ Peacock 05/24/2017 04:30 PEdited and Signed by Lenin Grace MD 05/24/2017 05:05 P
--- NOTE | 2017-05-28 23:50 | ECWPNPC ---
PATIENT NAME: CONRAD LI : 1990 GENDER: MALE VISIT DATE: 05/24/2017 DISCHARGE DATE: 05/24/17 1447 VISIT LOCKED DATE TIME: PHYSICIAN: DIONISIO URBINA RESOURCE: DIONISIO URBINA REASON FOR APPOINTMENT 1. L4/5 INTRALAMINAR LESI HISTORY OF PRESENT ILLNESS HISTORY OF PRESENT ILLNESS: PAIN THE PATIENT DESCRIBES THE PAIN... FALL RISK SCREENING: SCREENING :NO FALLS IN THE PAST YEAR CURRENT MEDICATIONS TAKING WELLBUTRIN SR 100 MG TABLET EXTENDED RELEASE 12 HOUR ORALLY TWICE A DAY, NOTES: 52905/24/17 TAKING SUBOXONE 8-2 MG FILM 1 FILM UNDER THE TONGUE AND ALLOW TO DISSOLVE SUBLINGUAL ONCE A DAY, NOTES: 52905/24/17 TAKING ZOLOFT 100 MG TABLET 1&1/2 TABLET ORALLY ONCE A DAY, NOTES: 52905/24/17 TAKING FLONASE ALLERGY RELIEF 50 MCG/ACT SUSPENSION 1 SPRAY IN EACH NOSTRIL NASALLY ONCE A DAY, NOTES: 52905/24/17 TAKING KNEE BRACE ADJUSTABLE HINGED - MISCELLANEOUS DIRECTED DX: S86.912A DAILY NOT-TAKING NAPROXEN 500 MG TABLET 1 TABLET NEEDED ORALLY EVERY 12 HRS MEDICATION LIST REVIEWED AND RECONCILED WITH THE PATIENT PAST MEDICAL HISTORY HX OF HEROIN USE HX OF OPIOID ABUSE LOW BACK PAIN OCD PTSD MANIC DEPRESSION ADJUSTMENT DISORDER SOCIAL ANXIETY ANXIETY DDD ARTHRITIS OBESITY ALLERGIES GABAPENTIN: EDEMA: SIDE EFFECTS SURGICAL HISTORY CARPAL TUNNEL RELEASE BILATERAL HERNIA REPAIR-LEFT INGUINAL T & A FAMILY HISTORY FATHER: ALIVE 50 YRS, BRAIN TUMOR BENIGN ALCOHOLIC, DRUG ABUSE (RECOVERY)., DIAGNOSED WITH OTHER MOTHER: ALIVE 50 YRS, MENTAL HEALTH ISSUES, DIAGNOSED WITH OTHER SIBLINGS: ALIVE PATERNAL GRAND FATHER: PATERNAL GRAND MOTHER: , BREAST,COLON,LUNG,THROAT CANCER, DIAGNOSED WITH CANCER MATERNAL GRAND FATHER: ALIVE, DIAYLSIS, DIAGNOSED WITH DIABETES, HEART DISEASE MATERNAL GRAND MOTHER: ALIVE, BREAST CANCER, DIAGNOSED WITH CANCER 4 BROTHER(S) , 1 SISTER(S) - HEALTHY. 2 SON(S) , 1 DAUGHTER(S) - HEALTHY. FATHER--BRAIN TUMOR-BEIGN, ALCOHOLIC, DRUG ABUSE,DDDMOTHER-MENTAL HEALTH ISSUES, DDDBROTHERS SMOKE MARIJUANA. HOSPITALIZATION/MAJOR DIAGNOSTIC PROCEDURE [facility]. 10/08-11/09/2016 [facility] 10/2012 REVIEW OF SYSTEMS REVIEWED BY: PROVIDER: . CONSTITUTIONAL: ANY CHANGE IN YOUR MEDICAL CONDITION? NO . CHILLS NO . FEVER NO . INFECTION: DO YOU HAVE NEW INFECTIONS? NO . DO YOU HAVE HISTORY OF MRSA? NO . MUSCULOSKELETAL: ANY NEW PATTERNS OF PAIN OR NUMBNESS? NO . GASTROENTEROLOGY: ANY NEW CHANGE IN BOWEL CONTROL? NO . GENITOURINARY: ANY NEW CHANGE IN BLADDER CONTROL? NO . IS THERE A CHANCE YOU COULD BE ? NO . HEMATOLOGY/LYMPH: DO YOU TAKE ANY BLOOD THINNERS? (FOR EXAMPLE- COUMADIN, PLAVIX, AGGRENOX, PLATEL, PRADAXA, OR XARELTO) NO . WHEN WAS YOUR LAST DOSE? DATE: TIME: . NEUROLOGY: HAVE YOU FALLEN IN THE PAST 6 MONTHS? NO . ANY NEW EXTREMITY NUMBNESS OR WEAKNESS? NO . CARDIOLOGY: DO YOU HAVE A PACEMAKER OR DEFIBRILLATOR? NO . RESPIRATORY: HAVE YOU BEEN SICK IN THE PAST WEEK? NO . FEVER NO . FLU LIKE SYMPTOMS? NO . COUGH NO . INTEGUMENTARY: DO YOU HAVE ANY RASHES OR OPEN SORES? NO . ALLERGIC/IMMUNO: ARE YOU ALLERGIC TO SHELLFISH OR IV DYE? NO . ANY NEW ALLERGIES? NO . PSYCHIATRIC: DO YOU HAVE THOUGHTS OF HURTING YOURSELF OR SOMEONE ELSE? NO . ARE YOU ABUSED, NEGLECTED, OR IN AN UNSAFE ENVIRONMENT? NO . ENDOCRINOLOGY: ARE YOU DIABETIC? NO . OTHER: DO YOU NEED ANY PRESCRIPTIONS? NO . IF YES, PLEASE LIST: ____ . ANY NEW PROBLEMS WITH YOUR MEDICATIONS? NO . WHEN DID YOU LAST EAT? 5PM 05/23/17 . WHEN DID YOU LAST DRINK? ____9AM 05/24/17 . WHAT DID YOU LAST DRINK? WATER . NAME OF PERSON DRIVING YOU HOME? CONRAD . DO YOU HAVE ANY OTHER QUESTIONS OR CONCERNS NO . VITAL SIGNS WT 305 LBS, HT 68 IN, BMI 46.37 INDEX, BP 141/75 MM HG, HR 84 /MIN, RR 18 /MIN, TEMP 97.5 F, OXYGEN SAT % 97%, NA INITIALS AW 1154, REVIEWED BY: NL. ASSESSMENTS INTERVERTEBRAL DISC DISORDER WITH RADICULOPATHY OF LUMBAR REGION - M51.16 (PRIMARY) PROCEDURES PRE PROCEDURE DIAGNOSIS LUMBAR DISC DISORDER WITH RADICULOPATHY POST PROCEDURE DIAGNOSIS LUMBAR DISC DISORDER WITH RADICULOPATHY PROCEDURE LUMBAR EPIDURAL STEROID INJECTION UNDER FLUOROSCOPIC GUIDANCE SURGEON DR. DIONISIO URBINA CUFF KNITTER NONE ANESTHESIA LOCAL PRE PROCEDURE NOTE THE PATIENT HAS A HISTORY OF CHRONIC LOW BACK PAIN. I EVALUATE THE PATIENT AND REVIEWED THE CHART. I WENT OVER THE RISKS, ALTERNATIVES, AND BENEFITS ASSOCIATED WITH THIS PROCEDURE. THE PATIENT WOULD LIKE TO PROCEED AND GIVE CONSENT TO PERFORMED THE PROCEDURE. THE PATIENT DENIES UNEXPLAINABLE WEIGHT LOSS, FEVER, CHILLS, OR NEW CHANGES IN URINARY OR BOWEL CONTROL. DESCRIPTION OF PROCEDURE THE PATIENT WAS BROUGHT TO THE PROCEDURE ROOM AND PLACED IN THE PRONE POSITION. THE LUMBOSACRAL AREA WAS CLEANED WITH BETADINE SOLUTION AND DRAPED ASEPTICALLY. THE PROCEDURE WAS DONE UNDER STERILE CONDITIONS. I CHECKED LATERALITY AND THE LEVEL WHERE THE PROCEDURE WAS GOING TO BE PERFORMED WITH THE PATIENT AND THE SUPPORTING STAFF AT THE MOMENT OF THE TIME OUT IN THE PROCEDURE ROOM. UNDER FLUOROSCOPIC GUIDANCE, THE TARGET POINT WAS SELECTED AT THE INTERLAMINAR LEVEL OF L3-L4. LIDOCAINE WAS USED TO NUMB THE SKIN AND THE SUBCUTANEOUS TISSUE BELOW IT. EPIDURAL TUOHY NEEDLE, 17-GAUGE, WAS ADVANCED UNDER FLUOROSCOPIC GUIDANCE AND FOLLOWING PATIENT FEEDBACK UNTIL THE EPIDURAL SPACE WAS REACHED, 7 CM DEEP INTO THE SKIN BY THE LOSS OF RESISTANCE TECHNIQUE. ISOVUE M DYE 30%, 0.25 ML, WAS INJECTED SHOWING ADEQUATE SPREAD OF THE DYE. THEN, A SOLUTION OF 3 ML OF NORMAL SALINE WITH DEPO-MEDROL 60 MG WAS INJECTED SLOWLY FOLLOWING PATIENT FEEDBACK. THERE WAS NO EVIDENCE OF BLOOD, PARESTHESIA OR CEREBROSPINAL FLUID DURING THE PROCEDURE. THE PATIENT WAS SENT TO THE RECOVERY ROOM. THE PATIENT WAS MOVING THE EXTREMITIES AND DOING WELL. THERE WAS NO COMPLICATION DURING THE PROCEDURE. FLUOROSCOPY TIME WAS 29 SECONDS. POST PROCEDURE NOTE THE PATIENT WILL BE SEEN IN A FOLLOW UP IN THE NEXT FEW WEEKS. INSTRUCTIONS WERE GIVEN, QUESTIONS WERE ANSWERED, AND THE PATIENT EXPRESSED UNDERSTANDING AND AGREES WITH THE PLAN. I, IVONNE CABRAL, DOCUMENTED THE ABOVE INFORMATION ACTING A SCRIBE FOR DR. URBINA. I HAVE REVIEWED THE ABOVE DOCUMENT, WRITTEN BY IVONNE VILLARREAL AND I VERIFY THAT IT IS ACCURATE DIAGNOSTIC IMAGING [facility] FLUORO GUIDE SPINE INJECTION (PAIN)[id number] PROCEDURE CODES 82324 LUMBAR/SACRAL W/ IMAGING 6045F RADXPS IN END [id number] PXD DISPOSITION & COMMUNICATION FOLLOW UP 2 WEEKS ELECTRONICALLY SIGNED BY DIONISIO URBINA MD ON 05/28/2017 AT 02:09 PM EDT DISCLAIMER : THIS IS A VISIT SUMMARY EXTRACTED FROM THE [employer] CHART. IT IS NOT A COPY OF THE [employer] PROGRESS NOTE. DHIRAJ
== END ==
LOC: M PAIN 11:45
PROVIDERS: ATTEND Anesthesiology
DX: G89.29 Other chronic pain (principal); M51.16 Intervertebral disc disorders with radiculopathy, lumbar region; E66.01 Morbid (severe) obesity due to excess calories; R40.0 Somnolence; E78.1 Pure hyperglyceridemia; F11.20 Opioid dependence, uncomplicated; F14.10 Cocaine abuse, uncomplicated; F43.10 Post-traumatic stress disorder, unspecified; F43.23 Adjustment disorder with mixed anxiety and depressed mood; F30.9 Manic episode, unspecified; F41.9 Anxiety disorder, unspecified; F40.11 Social phobia, generalized; Z68.42 Body mass index [BMI] 45.0-49.9, adult; Z88.8 Allergy status to other drugs, medicaments and biological substances; Z79.899 Other long term (current) drug therapy; Z87.891 Personal history of nicotine dependence
CPT/HCPCS: 62323; J1030; Q9967

== ENCOUNTER 2017-07-14 17:06 | Emergency (ER) | payer OTHER ==
[~2017-07-14] VITALS: Ht 172.7 cm; Wt 136.4 kg
[~2017-07-14 17:06] MED LIST changes: -ISOVUE-M 300 61% 15ML VIAL (Q9967) As Ordered ONE; -LIDOCAINE 1% SDV INJ 30 ML VIAL As Ordered ONE; -methylPREDNISolone SUSP 40 MG/ML (DEPO-medrol) VIAL (J1030) As Ordered ONE
[2017-07-14] MEDS ORDERED: BUPR15TA PO (17:16)
[2017-07-14] MEDS ORDERED: IBUPROFEN 600 MG TAB PO ONE (18:15)
[2017-07-14] MEDS ORDERED: IBUP-1022 PO (18:46)
[2017-07-14 18:50] VITALS: BP 147/96
--- NOTE | 2017-07-14 19:00 | REP ---
REASON: Pain. No history of trauma. FINDINGS: No acute fracture or destructive osseous lesion. Signed by Modesto Quintero DO 07/14/2017 07:08 P
== END 2017-07-14 18:53 | disposition home or self-care (01) ==
LOC: M ED 17:06
DX: S86.891A Other injury of other muscle(s) and tendon(s) at lower leg level, right leg, initial encounter (principal); X58.XXXA Exposure to other specified factors, initial encounter; Y92.89 Other specified places as the place of occurrence of the external cause; Y93.89 Activity, other specified; Y99.8 Other external cause status; F43.10 Post-traumatic stress disorder, unspecified; F43.20 Adjustment disorder, unspecified; F19.11 Other psychoactive substance abuse, in remission; Z79.899 Other long term (current) drug therapy; Z88.8 Allergy status to other drugs, medicaments and biological substances; Z87.891 Personal history of nicotine dependence

== ENCOUNTER → 2017-08-14 | Outpatient (CLI) | payer OTHER | LOC: M PAIN 09:30 | DX: G89.29 Other chronic pain (principal); M46.1 Sacroiliitis, not elsewhere classified; M51.16 Intervertebral disc disorders with radiculopathy, lumbar region; F43.10 Post-traumatic stress disorder, unspecified; F31.9 Bipolar disorder, unspecified; F43.23 Adjustment disorder with mixed anxiety and depressed mood; F40.11 Social phobia, generalized; F41.9 Anxiety disorder, unspecified; M19.90 Unspecified osteoarthritis, unspecified site; E66.9 Obesity, unspecified; Z88.8 Allergy status to other drugs, medicaments and biological substances; Z79.1 Long term (current) use of non-steroidal anti-inflammatories (NSAID); Z79.899 Other long term (current) drug therapy; Z68.42 Body mass index [BMI] 45.0-49.9, adult; Z86.59 Personal history of other mental and behavioral disorders | CPT/HCPCS: G0463 ==

== ENCOUNTER → 2017-09-12 | Outpatient (CLI) | payer OTHER ==
[~2017-09-12] MED LIST changes: +BUPIVACAINE HCL 0.25% 30 ML VIAL As Ordered; -GABA-283 PO; -HYDR-3363 PO; -HYDR25TAB PO; -IBUP-1022 PO; +ISOVUE-M 300 61% 15ML VIAL (Q9967) As Ordered; +LIDOCAINE 1% SDV INJ 30 ML VIAL As Ordered; -NAPR500T PO; -SUBO4MIS SL; -TRAZ50TA2 PO; +TRIAMCINOLONE ACETONIDE SUSP 40 MG/ML VIAL (J3301) As Ordered; -VENL75CA47 PO; -ZOLO100T PO
== END ==
LOC: M PAIN 11:45
DX: G89.29 Other chronic pain (principal); M46.1 Sacroiliitis, not elsewhere classified; M53.88 Other specified dorsopathies, sacral and sacrococcygeal region; F11.20 Opioid dependence, uncomplicated; F43.10 Post-traumatic stress disorder, unspecified; F31.9 Bipolar disorder, unspecified; F43.20 Adjustment disorder, unspecified; F41.8 Other specified anxiety disorders; M19.90 Unspecified osteoarthritis, unspecified site; E66.01 Morbid (severe) obesity due to excess calories; Z68.42 Body mass index [BMI] 45.0-49.9, adult; Z79.899 Other long term (current) drug therapy; Z88.8 Allergy status to other drugs, medicaments and biological substances; Z87.891 Personal history of nicotine dependence
CPT/HCPCS: J3301

== ENCOUNTER → 2017-09-26 | Outpatient (CLI) | payer OTHER | LOC: M PAIN 14:15 | DX: M46.1 Sacroiliitis, not elsewhere classified (principal); M51.16 Intervertebral disc disorders with radiculopathy, lumbar region; F32.9 Major depressive disorder, single episode, unspecified; F41.9 Anxiety disorder, unspecified; Z79.899 Other long term (current) drug therapy; Z88.8 Allergy status to other drugs, medicaments and biological substances; Z87.891 Personal history of nicotine dependence | CPT/HCPCS: G0463 ==

== ENCOUNTER → 2017-11-23 | Outpatient (CLI) | payer OTHER ==
[2017-11-23 14:39] LABS: ALBUMIN/GLOBULIN RATIO 1.18 (1.00-1.93); ALKALINE PHOSPHATASE 97 U/L (45-117); ALT/SGPT 30 U/L (12-78); AST/SGOT 32 U/L (7-37); BILIRUBIN,DIRECT < 0.1 MG/DL (0.0-0.2); BILIRUBIN,TOTAL 0.4 MG/DL (0.2-1.0); TOTAL PROTEIN 7.4 GM/DL (6.4-8.2)
== END ==
LOC: M LAB 13:29
DX: F11.20 Opioid dependence, uncomplicated (principal)
CPT/HCPCS: 80076

== ENCOUNTER → 2019-07-11 | Outpatient (REF) | payer OTHER ==
[~2019-07-11] MED LIST changes: -BUPIVACAINE HCL 0.25% 30 ML VIAL As Ordered; +BUPR15TA PO; +GABA-845 PO; +HYDR-3363 PO; +HYDR25TAB PO; +IBUP-1022 PO; -ISOVUE-M 300 61% 15ML VIAL (Q9967) As Ordered; -LIDOCAINE 1% SDV INJ 30 ML VIAL As Ordered; +NAPR-837 PO; +SUBO4MIS SL; +TRAZ50TA2 PO; -TRIAMCINOLONE ACETONIDE SUSP 40 MG/ML VIAL (J3301) As Ordered; +VENL75CA47 PO; +ZOLO100T PO
[2019-07-11 20:34] LABS: CHLAMYDIA DNA AMPLIFICATION NEGATIVE (NEGATIVE); GC DNA AMPLIFICATION NEGATIVE (NEGATIVE)
== END ==
LOC: M LAB REF 16:36
PROVIDERS: ATTEND Physician Assistant
DX: Z20.9 Contact with and (suspected) exposure to unspecified communicable disease (principal)

== ENCOUNTER 2019-10-29 15:20 | Inpatient (IN) | payer OTHER ==
[~2019-10-29] VITALS: Ht 172.7 cm; Wt 160.6 kg
[2019-10-29 15:51] LABS: BASO # 0.1 10^3/uL (0.0-0.2); BASO % 0.5 % (0.0-1.0); EOS # 0.1 10^3/uL (0.0-0.5); EOS % 0.3 % (0.0-3.0); HEMATOCRIT 47.2 % (42.0-52.0); HEMOGLOBIN 16.8 g/dl (13.5-17.5); LYMPH # 1.5 10^3/uL (1.5-5.0); MEAN CORPUSCULAR HGB CONC 35.6 g/dl (32.0-36.5); MEAN CORPUSCULAR VOLUME 81.4 fl (80.0-96.0); MONO # 1.3 10^3/uL (0.0-0.8); MONO % 8.8 % (0.0-5.0); NEUTROPHILS # 11.8 10^3/uL (1.5-8.5); PLATELET COUNT, AUTOMATED 219 10^3/uL (150-450); WHITE BLOOD COUNT 14.8 10^3/uL (4.0-10.0)
[2019-10-29] MEDS ORDERED: NS 1,000 ML IV ONE (16:15)
[2019-10-29] MEDS ORDERED: ONDANSETRON 4MG/2ML VIAL (J2405) IV ONE (16:15)
[2019-10-29] MEDS ORDERED: MORPHINE 4 MG/ML 1ML VIAL/SYRINGE (J2270) IV ONE ×2 (16:15→17:30)
[2019-10-29 16:28] LABS: INR 0.99; PROTHROMBIN TIME 12.8 SECONDS (11.8-14.0)
[2019-10-29 16:29] LABS: PARTIAL THROMBOPLASTIN TIME 33.1 SECONDS (25.0-38.4)
[2019-10-29 16:39] LABS: ALBUMIN 3.3 GM/DL (3.2-5.2); ALT/SGPT 111 U/L (12-78); BILIRUBIN,DIRECT 0.1 MG/DL (0.0-0.2); BILIRUBIN,TOTAL 1.8 MG/DL (0.2-1.0); CK-MB VALUE MASS < 1.0 NG/ML (<3.6); CPK CREATINE PHOSPHOKINASE 126 U/L (39-308); LIPASE 1321 U/L (73-393); MB/CK RELATIVE INDEX 0.79 (< OR =4); TOTAL PROTEIN 6.8 GM/DL (6.4-8.2); TROPONIN I < 0.02 NG/ML (< 0.10)
--- NOTE | 2019-10-29 17:04 | REP ---
Clinical: Chest and epigastric pain . Comparison: None . Technique: PA and lateral. Findings: The mediastinum and cardiac silhouette are normal. The lung almanzar are clear and without acute consolidation, effusion, or pneumothorax. The skeletal structures are intact and normal. Impression: 1. No acute cardiopulmonary process. Electronically Signed by Erich Shetty MD 10/29/2019 04:55 P
--- NOTE | 2019-10-29 17:12 | REPVR ---
PROCEDURE INFORMATION: Exam: US Abdomen Limited, Right Upper Quadrant Exam date and time: 10/29/2019 5:00 PM Age: 29 years old Clinical indication: Abdominal pain; Additional info: Right upper quadrant, epigastric pain TECHNIQUE: Imaging protocol: Real-time ultrasound of the abdomen with image documentation. Examination was focused on the right upper quadrant. COMPARISON: No relevant prior studies available. FINDINGS: Liver: The liver demonstrates increased echogenicity with decreased visualization of periportal fat with severe sound attenuation. Gallbladder: The gallbladder transverse lumen measures 5.0 x 5.2 cm. The gallbladder length is 13.2 cm. The gallbladder wall measures 1.2 mm. No gallstones. Common bile duct: The common bile duct measures 6.4 mm. No ductal calculi as visualized. Pancreas: The pancreas is partially obscured by bowel gas, unremarkable where visualized. Right kidney: The right kidney measures 12.5 x 6.1 x 6.2 cm. Unremarkable. Other findings: If a IMPRESSION: 1. Limitations as above. 2. Dilated gallbladder, mildly enlarged common bile duct. No choledocholithiasis identified as visualized. MRCP may be helpful if indicated. 3. Fatty infiltration of the liver. Electronically signed by: Bob Dorsey On 10/29/2019 17:12:14 PM
[2019-10-29] MEDS: HumaLOG INSULIN (NovoLOG) PER UNIT SC SCH (18:00)
[2019-10-29 18:02] LABS: ETHYL ALCOHOL (ETHANOL) < 0.003 % (0.000-0.010)
[2019-10-29 18:15] LABS: AMPHETAMINES LEVEL URINE NEGATIVE (NEGATIVE); BARBITURATES URINE NEGATIVE (NEGATIVE); BENZODIAZEPINES URINE NEGATIVE (NEGATIVE); CANNABINOIDS URINE POSITIVE (NEGATIVE); COCAINE METABOLITE URINE NEGATIVE (NEGATIVE); METHADONE URINE NEGATIVE (NEGATIVE); OPIATES URINE NEGATIVE (NEGATIVE); PHENCYCLIDINE URINE NEGATIVE (NEGATIVE)
[2019-10-29] MEDS ORDERED: DEXTROSE 50% 50 ML SYRINGE IV PRN (18:30)
[2019-10-29] MEDS ORDERED: ONDANSETRON 4MG/2ML VIAL (J2405) IV PRN (18:30)
[2019-10-29] MEDS ORDERED: GLUCOSE 4 GM CHEW TABLET PO PRN ×2 (18:30→20:15)
[2019-10-29] MEDS ORDERED: MOM 30ML SUSPENSION UDC PO PRN (18:30)
[2019-10-29] MEDS ORDERED: GLUCAGON FOR INJ 1 MG VIAL (J1610) SC PRN ×2 (18:30→20:15)
--- NOTE | 2019-10-29 18:46 | HPEPDOC ---
[facility] Medical History & Physical Date of Admission Oct 29, 2019 Date of Service: Oct 29, 2019 Attending Physician: LYNNE RAMIREZ DO History and Physical CHIEF COMPLAINT: epigastric pain HISTORY OF PRESENT ILLNESS: Jone Marie is a 29 YO M with past medical history substance abuse and mood disorder who presents with 1 month history epigastric pain radiating to RUQ. He states that the pain has mostly been intermittent before today, worsening with meals, and unrelieved by antacids and qqsh-bre-nyiampx pain medication. He states that for the past 24 hours the pain has been sharp, stabbing and has radiated to his back. He denies any recent fevers, chills, or night sweats. he reports he did have one episode of nausea and emesis this morning. He has decreased appetite and intentional 40 lb weight loss over the past 6 months. Denies any changes in his stool. PAST MEDICAL HISTORY: 1. Depression/anxiety 2. Substance abuse (formerly used Heroin, meth, etc) s/p Suboxone PAST SURGICAL HISTORY: 1. Tonsillectomy 2. Adenoidectomy 3. Inguinal hernia repair SOCIAL HISTORY: Former drug abuse (denies IVDU, reports smoking crack, meth, heroin), currently smokes marijuana, Smokes ~10 cigarettes/day, history of vaping recently FAMILY HISTORY: noncontributory ALLERGIES: Please see below. REVIEW OF SYSTEMS: CONSTITUTIONAL: Feels well. No fever or chills HEENT: denies vision changes, no sinus problems, denies any trouble swallowing CARDIOVASCULAR: no palpitations RESPIRATORY: Denies any shortness of breath GENITOURINARY: No dysuria MUSCULOSKELETAL: Denies any joint/muscle pain GASTROINTESTINAL: Reports 7/10 epigastric and RUQ abdominal pain SKIN: No new rashes or lesions NEUROLOGICAL: No loss of sensation PSYCHIATRIC: Reports normal mood, no delusions or hallucinations ENDOCRINE: No hot/cold intolerance HEMATOLOGIC/LYMPHATIC: No easy bruising, no lumps/bumps ALLERGIC/IMMUNOLOGIC: No sinus symptoms HOME MEDICATIONS: Please see below. PHYSICAL EXAMINATION: VITAL SIGNS: Please see below. GENERAL APPEARANCE: morbidly obese, sitting at edge of bed, appears stated age, no acute distress, calm, cooperative HEENT: EOMI, PERRLA, neck is supple with no thyromegaly or lymphadenopathy RESPIRATORY: Lungs are clear to auscultation bilaterally with no adventitious breath sounds appreciated CARDIOVASCULAR: no JVD, RRR, no murmurs/rubs/gallops ABDOMEN: obese, +BS, very tender to palpation in epigastrum and RUQ, +tolentino's sign EXTREMITIES: no clubbing, cyanosis or edema noted NEUROLOGICAL: No obvious focal deficits PSYCHIATRIC: normal mood/affect Skin: No rashes or ulcers. LN: No significant cervical or inguinal lymphadenopathy LABORATORY DATA: See below. IMAGING: GALLBLADDER US: FINDINGS: Liver: The liver demonstrates increased echogenicity with decreased visualization of periportal fat with severe sound attenuation. Gallbladder: The gallbladder transverse lumen measures 5.0 x 5.2 cm. The gallbladder length is 13.2 cm. The gallbladder wall measures 1.2 mm. No gallstones. Common bile duct: The common bile duct measures 6.4 mm. No ductal calculi as visualized. Pancreas: The pancreas is partially obscured by bowel gas, unremarkable where visualized. Right kidney: The right kidney measures 12.5 x 6.1 x 6.2 cm. Unremarkable. IMPRESSION: 1. Limitations as above. 2. Dilated gallbladder, mildly enlarged common bile duct. No choledocholithiasis identified as visualized. MRCP may be helpful if indicated. 3. Fatty infiltration of the liver. MICROBIOLOGY: Please see below. ASSESSMENT: This is a 29 YO M with history of mood disorder who presents with 1 month history of epigastric and RUQ pain now worsened found to have leukocytosis at 14.8, transaminitis and elevated lipase at 1321. Gallbladder US demonstrates dilated gallbladder and CBD is dilated at 6.4mm concerning for choledocholithiasis. PLAN: 1. Dilated CBD and gallbladder concerning for choledocholithiasis: -US demonstrates CBD 6.4mm with dilated gallbladder. Less concerning for ch olecystitis -MRCP pending -GI, Dr. Rogers, aware of the case. Will consult pending results of MRCP -IVF and pain management as below -NPO for now 2. Acute pancreatitis: -NS 250cc/hr aggressive fluid hydration -Pending lipid profile -Pain management with IV Toradol, IV Morphine -IV Zofran for nausea 3. Hyperglycemia concerning for undiagnosed DM2: -A1c pending -Levemir 8U QHS with SSI and hypoglycemic protocol 4. Leukocytosis: WBC found to be 14.8 -No evidence of infection. Patient has been afebrile. Normal differential. Likely reactive 5. Obesity: -Complicates care. Will need dietary counseling at discharge DVT PPx: Lovenox DISPO: Pending MRCP results Vital Signs Vital Signs Date Time Temp Pulse Resp B/P (MAP) Pulse Ox O2 Delivery O2 Flow Rate FiO2 10/29/19 18:08 18 10/29/19 17:42 99.9 98 136/65 (88) 98 Room Air Laboratory Data Labs 24H Laboratory Tests 2 10/29/19 15:37: Prothrombin Time 12.8, Prothromb Time International Ratio 0.99, Activated Partial Thromboplast Time 33.1 10/29/19 15:40: Immature Granulocyte % (Auto) 0.4, Neutrophils (%) (Auto) 80.0H, Lymphocytes (%) (Auto) 10.0L, Monocytes (%) (Auto) 8.8H, Eosinophils (%) (Auto) 0.3, Basophils (%) (Auto) 0.5, Neutrophils # (Auto) 11.8H, Lymphocytes # (Auto) 1.5, Monocytes # (Auto) 1.3H, Eosinophils # (Auto) 0.1, Basophils # (Auto) 0.1, Nucleated Red Blood Cells % (auto) 0.0, Total Bilirubin 1.8H, Direct Bilirubin 0.1, Aspartate Amino Transf (AST/SGOT) 104H, Alanine Aminotransferase (ALT/SGPT) 111H, Alkaline Phosphatase 118H, Total Creatine Kinase 126, Creatine Kinase MB < 1.0, Creatine Kinase MB Relative Index 0.79, Troponin I < 0.02, Total Protein 6.8, Albumin 3.3, Albumin/Globulin Ratio 0.94L, Lipase 1321H, Ethyl Alcohol Level < 0.003 10/29/19 15:43: POC Glucose (Misc Panel) 470H, POC Sodium (Misc Panel) 129L, POC Potassium (Misc Panel) 4.2, POC Chloride (Misc Panel) 99, POC Total CO2 (Misc Panel) 21.0L, POC Blood Urea Nitrogen (Misc Panel 7L, POC Ionized Calcium (Misc Panel) 4.7, POC Creatinine (Misc Panel) 0.7, POC Hematocrit (Misc Panel) 51.0 10/29/19 15:58: Urine Color YELLOW, Urine Appearance CLEAR, Urine pH 6.0, Urine Specific [place] 1.037, Urine Protein NEGATIVE, Urine Glucose (UA) 3+H, Urine Ketones 2+H, Urine Blood 1+H, Urine Nitrite NEGATIVE, Urine Bilirubin NEGATIVE, Urine Urobilinogen 0.2, Urine Leukocyte Esterase NEGATIVE, Urine WBC (Auto) 1, Urine RBC (Auto) 2, Urine Hyaline Casts (Auto) 0, Urine Bacteria (Auto) NEGATIVE, Urine Squamous Epithelial Cells 1, Urine Sperm (Auto) 10/29/19 16:34: Lactic Acid Level 0.9 CBC/BMP Laboratory Tests 10/29/19 15:40 Home Medications No Active Prescriptions or Reported Meds Allergies Coded Allergies: gabapentin (Verified Adverse Reaction, Intermediate, LEGS SWELL, 10/29/19) A-FIB/CHADSVASC A-FIB History Current/History of A-Fib/PAF?: No GME ATTESTATION GME ATTESTATION My faculty preceptor for this patient encounter was physically present during the encounter and was fully available. All aspects of the patient interview, examination, medical decision making process, and medical care plan development were reviewed and approved by the faculty preceptor. The faculty preceptor is a giron and concurs with the plan as stated in the body of this note and will attest to such by his/her cosignature. CHI BRIZUELA MD Oct 29, 2019 18:46
--- NOTE | 2019-10-29 19:53 | REPVR ---
PROCEDURE INFORMATION: Exam: MR Abdomen Without Contrast, MRCP. Exam date and time: 10/29/2019 7:29 PM Age: 29 years old Clinical indication: Abdominal tenderness; Additional info: R/O gallstone pancreatitis TECHNIQUE: Imaging protocol: MR of the abdomen without contrast. 3D rendering: MIP and/or 3D reconstructed images were created by the technologist. COMPARISON: US Abdomen 10/29/2019 4:55 PM FINDINGS: Limitations: Motion artifact degrades the image quality of several sequences obtained. Liver: The liver is enlarged and measures 20.3 cm in craniocaudal dimension at the level of the right midclavicular line. The liver was not fully imaged. Gallbladder and bile ducts: Normal distended gallbladder. No gallstones, masses, gallbladder wall thickening, pericholecystic fluid, or pericholecystic inflammatory changes. No intrahepatic or extrahepatic biliary ductal dilation. The common bile duct measures 4 mm in diameter. Pancreas: There is inflammatory fat stranding around the pancreas, which is compatible with acute pancreatitis. There is no pseudocyst. No pancreatic mass is seen. No dilation of the main pancreatic duct is noted. Spleen: The spleen is enlarged measures 16 cm. The spleen was not fully imaged. Adrenals: Normal. No adrenal mass is noted. Kidneys: The imaged portions of the kidneys are unremarkable. There is no hydronephrosis. The kidneys were not fully imaged. Stomach and bowel: There is colonic diverticulosis. The bowel was not fully imaged. Retroperitoneal space: Unremarkable. No fluid collection. No mass. Intraperitoneal space: No abscess. There is a trace amount of free fluid in the right upper quadrant of the abdomen. Arteries: The abdominal aorta is normal in caliber. Lymph nodes: Normal. No enlarged lymph nodes. Bones/joints: The bone marrow signal is unremarkable. Soft tissues: Unremarkable. IMPRESSION: 1. Acute pancreatitis. 2. No cholelithiasis or choledocholithiasis. 3. Hepatosplenomegaly. 4. Colonic diverticulosis. Electronically signed by: Art Kapoor On 10/29/2019 19:53:36 PM
[2019-10-29 20:00] VITALS: BP 135/83
[2019-10-29 20:00] LABS: CHOLESTEROL LEVEL 272 MG/DL (<200); HDL CHOLESTEROL 20 MG/DL (>40); NON-HDL-C 252 MG/DL; TRIGLYCERIDES LEVEL 2383 MG/DL (<150)
[2019-10-29] MEDS: NS 1,000 ML IV SCH (20:16)
[2019-10-29] MEDS: KETOROLAC 30 MG/ML VIAL (J1885) IV PRN (20:16)
[2019-10-29 20:18] LABS: HEMOGLOBIN A1c 12.6 %
[2019-10-29] MEDS: ENOXAPARIN 40 MG/0.4 ML SYRINGE (J1650) SC SCH (20:49)
[2019-10-29] MEDS: DOCUSATE SODIUM 100 MG CAP PO SCH (20:49)
[2019-10-29] MEDS ORDERED: HumaLOG INSULIN (NovoLOG) PER UNIT SC SCH (21:00)
[2019-10-29] MEDS ORDERED: LEVEMIR (INSULIN DETEMIR) 1 UNITS/0.01ML SC SCH (21:00)
[2019-10-29] MEDS: MORPHINE 2 MG/ML 1ML VIAL (J2270) IV PRN (21:35)
[2019-10-30] VITALS (7 sets, daily range): BP systolic 102–149; BP diastolic 58–94
[2019-10-30] MEDS: NS 1,000 ML IV SCH ×4 (01:43→08:57)
[2019-10-30] MEDS: HumaLOG INSULIN (NovoLOG) PER UNIT SC SCH ×2 (01:43→06:39)
[2019-10-30] MEDS: MORPHINE 2 MG/ML 1ML VIAL (J2270) IV PRN ×5 (01:43→21:44)
[2019-10-30] MEDS: KETOROLAC 30 MG/ML VIAL (J1885) IV PRN ×4 (03:57→20:31)
[2019-10-30 05:26] LABS: HEMATOCRIT 42.3 % (42.0-52.0); MEAN CORPUSCULAR HEMOGLOBIN 28.2 pg (27.0-33.0); MEAN CORPUSCULAR HGB CONC 33.6 g/dl (32.0-36.5); MEAN CORPUSCULAR VOLUME 84.1 fl (80.0-96.0); PLATELET COUNT, AUTOMATED 175 10^3/uL (150-450); RED BLOOD COUNT 5.03 10^6/uL (4.30-6.10)
[2019-10-30 05:31] LABS: HEMOGLOBIN 14.2 g/dl (13.5-17.5)
--- NOTE | 2019-10-30 05:37 | ECGEPIP ---
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
[2019-10-30 06:55] LABS: ALBUMIN 2.6 GM/DL (3.2-5.2); ALT/SGPT 65 U/L (12-78); BILIRUBIN,TOTAL 1.7 MG/DL (0.2-1.0); BLOOD UREA NITROGEN 5 MG/DL (7-18); CALCIUM LEVEL 7.9 MG/DL (8.5-10.1); CARBON DIOXIDE LEVEL 20 MEQ/L (21-32); CHLORIDE LEVEL 100 MEQ/L (98-107); CREATININE FOR GFR 0.78 MG/DL (0.70-1.30); GLOMERULAR FILTRATION RATE > 60.0 (>60); GLUCOSE, FASTING 372 MG/DL (70-100); SODIUM LEVEL 129 MEQ/L (136-145); TOTAL PROTEIN 6.2 GM/DL (6.4-8.2)
[2019-10-30] MEDS ORDERED: HumaLOG INSULIN (NovoLOG) PER UNIT SC SCH (07:30)
[2019-10-30] MEDS: DOCUSATE SODIUM 100 MG CAP PO SCH ×2 (08:55→20:30)
[2019-10-30 09:05] LABS: CHOLESTEROL LEVEL 346 MG/DL (<200); CHOLESTEROL RISK RATIO 14.416 (<5); HDL CHOLESTEROL 24 MG/DL (>40); NON-HDL-C 322 MG/DL; TRIGLYCERIDES LEVEL 2938 MG/DL (<150)
[2019-10-30] MEDS: INSULIN IV RATE CHANGE DOCUMENTATION ML/HR XX SCH ×8 (10:30→22:33)
[2019-10-30] MEDS: INSULIN HUMAN REGULAR 100 UNITS in NS 99 ML IV SCH ×2 (10:30→22:49)
[2019-10-30] MEDS: D5W/0.45% SODIUM CHLORIDE 1,000 ML IV SCH ×4 (10:30→22:49)
[2019-10-30 15:02] LABS: ALBUMIN 2.6 GM/DL (3.2-5.2); ALT/SGPT 59 U/L (12-78); BLOOD UREA NITROGEN 5 MG/DL (7-18); CALCIUM LEVEL 7.2 MG/DL (8.5-10.1); CARBON DIOXIDE LEVEL 22 MEQ/L (21-32); CHLORIDE LEVEL 100 MEQ/L (98-107); CREATININE FOR GFR 0.94 MG/DL (0.70-1.30); GLOMERULAR FILTRATION RATE > 60.0 (>60); GLUCOSE, FASTING 329 MG/DL (70-100); POTASSIUM SERUM 5.2 MEQ/L (3.5-5.1); SODIUM LEVEL 130 MEQ/L (136-145); TOTAL PROTEIN 6.1 GM/DL (6.4-8.2)
[2019-10-30] MEDS ORDERED: INSULIN HUMAN REGULAR 100 UNITS in NS 99 ML IV SCH (15:09)
--- NOTE | 2019-10-30 15:23 | IPNPDOC ---
Date Seen The patient was seen on 10/30/19. Progress Note SUBJECTIVE: Patient was seen and examined at the bedside this morning. He is still in 7/10 pain. He reports that morphine and Toradol are only minimally helpful in relieving his pain. He is hungry, but is currently eating ice chips. He was transferred to the ICU for insulin drip. OBJECTIVE PHYSICAL EXAMINATION: VITAL SIGNS: Please see below. GENERAL APPEARANCE: morbidly obese, sitting at edge of bed, appears stated age, no acute distress, calm, cooperative HEENT: EOMI, PERRLA, neck is supple with no thyromegaly or lymphadenopathy RESPIRATORY: Lungs are clear to auscultation bilaterally with no adventitious breath sounds appreciated CARDIOVASCULAR: no JVD, RRR, no murmurs/rubs/gallops ABDOMEN: obese, +BS, very tender to palpation in epigastrum and RUQ, +tolentino's sign EXTREMITIES: no clubbing, cyanosis or edema noted NEUROLOGICAL: No obvious focal deficits PSYCHIATRIC: normal mood/affect Skin: No rashes or ulcers. LN: No significant cervical or inguinal lymphadenopathy LABORATORY DATA: See below. IMAGING: MRCP: Liver: The liver is enlarged and measures 20.3 cm in craniocaudal dimension at the level of the right midclavicular line. The liver was not fully imaged. Gallbladder and bile ducts: Normal distended gallbladder. No gallstones, masses, gallbladder wall thickening, pericholecystic fluid, or pericholecystic inflammatory changes. No intrahepatic or extrahepatic biliary ductal dilation. The common bile duct measures 4 mm in diameter. Pancreas: There is inflammatory fat stranding around the pancreas, which is compatible with acute pancreatitis. There is no pseudocyst. No pancreatic mass is seen. No dilation of the main pancreatic duct is noted. Spleen: The spleen is enlarged measures 16 cm. The spleen was not fully imaged. Adrenals: Normal. No adrenal mass is noted. Kidneys: The imaged portions of the kidneys are unremarkable. There is no hydronephrosis. The kidneys were not fully imaged. Stomach and bowel: There is colonic diverticulosis. The bowel was not fully imaged. Retroperitoneal space: Unremarkable. No fluid collection. No mass. Intraperitoneal space: No abscess. There is a trace amount of free fluid in the right upper quadrant of the abdomen. Arteries: The abdominal aorta is normal in caliber. Lymph nodes: Normal. No enlarged lymph nodes. Bones/joints: The bone marrow signal is unremarkable. Soft tissues: Unremarkable. IMPRESSION: 1. Acute pancreatitis. 2. No cholelithiasis or choledocholithiasis. 3. Hepatosplenomegaly. 4. Colonic diverticulosis. MICROBIOLOGY: Please see below. ASSESSMENT: This is a 29 YO M with history of mood disorder who presents with 1 month history of epigastric and RUQ pain now worsened found to have leukocytosis at 14.8, transaminitis and elevated lipase at 1321. Gallbladder US demonstrates dilated gallbladder and CBD is dilated at 6.4mm concerning for choledocholithiasis. PLAN: 1. Dilated common bile duct: -US demonstrates CBD 6.4mm with dilated gallbladder, which is a bit large for his age -MRCP unrevealing of stones, found more likely pancreatitis -IVF and pain management as below -NPO for now. Patient may have ice chips 2. Acute pancreatitis 2/2 hypertriglyceridemia: -Insulin drip in place -1/2NS/D5 250cc/hr aggressive fluid hydration -Trending lipids Q12H -Pain management with IV Toradol, IV Morphine -IV Zofran for nausea -High dose Atorvastatin 80mg started 3. Previously undiagnosed DM2: -A1c 12.6% -Continue insulin drip for now 4. Leukocytosis: WBC trended up to 17.0 -No evidence of infection. Patient has been afebrile. Normal differential. Likely reactive 5. Obesity: -Complicates care. Will need dietary counseling at discharge DVT PPx: Lovenox DISPO: Pending improvement in triglycerides, improvement in pancreatitis VS, I&O, 24H, [facility] Vital Signs/I&O Vital Signs Date Time Temp Pulse Resp B/P (MAP) Pulse Ox O2 Delivery O2 Flow Rate FiO2 10/30/19 09:55 16 Room Air 10/30/19 06:00 99.7 113 135/92 (106) 96 I&O- Last 24 Hours up to 6 AM 10/30/19 06:00 Intake Total 1120 ml Output Total 1300 ml Balance -180 ml Laboratory Data 24H LABS Laboratory Tests 2 10/29/19 15:37: Prothrombin Time 12.8, Prothromb Time International Ratio 0.99, Activated Partial Thromboplast Time 33.1 10/29/19 15:40: Immature Granulocyte % (Auto) 0.4, Neutrophils (%) (Auto) 80.0H, Lymphocytes (%) (Auto) 10.0L, Monocytes (%) (Auto) 8.8H, Eosinophils (%) (Auto) 0.3, Basophils (%) (Auto) 0.5, Neutrophils # (Auto) 11.8H, Lymphocytes # (Auto) 1.5, Monocytes # (Auto) 1.3H, Eosinophils # (Auto) 0.1, Basophils # (Auto) 0.1, Nucleated Red Blood Cells % (auto) 0.0, Estimated Mean Plasma Glucose 315H, Hemoglobin A1c 12.6, Total Bilirubin 1.8H, Direct Bilirubin 0.1, Aspartate Amino Transf (AST/SGOT) 104H, Alanine Aminotransferase (ALT/SGPT) 111H, Alkaline Phosphatase 118H, Total Creatine Kinase 126, Creatine Kinase MB < 1.0, Creatine Kinase MB Relative Index 0.79, Troponin I < 0.02, Total Protein 6.8, Albumin 3.3, Albumin/Globulin Ratio 0.94L, Triglycerides Level 2383H, Total Cholesterol 272H, LDL Cholesterol , Non-HDL Cholesterol (LDL + VLDL) 252, Total HDL Cholesterol 20L, Cholesterol/HDL Ratio 13.600H, Lipase 1321H, Ethyl Alcohol Level < 0.003 10/29/19 15:43: POC Glucose (Misc Panel) 470H, POC Sodium (Misc Panel) 129L, POC Potassium (Misc Panel) 4.2, POC Chloride (Misc Panel) 99, POC Total CO2 (Misc Panel) 21.0L, POC Blood Urea Nitrogen (Misc Panel 7L, POC Ionized Calcium (Misc Panel) 4.7, POC Creatinine (Misc Panel) 0.7, POC Hematocrit (Misc Panel) 51.0 10/29/19 15:58: Urine Color YELLOW, Urine Appearance CLEAR, Urine pH 6.0, Urine Specific Dennis 1.037, Urine Protein NEGATIVE, Urine Glucose (UA) 3+H, Urine Ketones 2+H, Urine Blood 1+H, Urine Nitrite NEGATIVE, Urine Bilirubin NEGATIVE, Urine Urobilinogen 0.2, Urine Leukocyte Esterase NEGATIVE, Urine WBC (Auto) 1, Urine RBC (Auto) 2, Urine Hyaline Casts (Auto) 0, Urine Bacteria (Auto) NEGATIVE, Urine Squamous Epithelial Cells 1, Urine Sperm (Auto) , Urine Opiates Screen NEGATIVE, Urine Methadone Screen NEGATIVE, Urine Barbiturates Screen NEGATIVE, Urine Ph encyclidine Screen NEGATIVE, Urine Amphetamines Screen NEGATIVE, Urine Benzodiazepines Screen NEGATIVE, Urine Cocaine Metabolite Screen NEGATIVE, Urine Cannabinoids Screen POSITIVEH 10/29/19 16:34: Lactic Acid Level 0.9 10/29/19 20:03: Bedside Glucose (Misc Panel) 357H 10/30/19 00:28: Bedside Glucose (Misc Panel) 366H 10/30/19 05:14: Nucleated Red Blood Cells % (auto) 0.0, Anion Gap 9, Glomerular Filtration Rate > 60.0, Calcium Level 7.9L, Magnesium Level 2.0, Total Bilirubin 1.7H, Aspartate Amino Transf (AST/SGOT) 69H, Alanine Aminotransferase (ALT/SGPT) 65, Alkaline Phosphatase 76, Total Protein 6.2L, Albumin 2.6#L, Albumin/Globulin Ratio 0.72L, Triglycerides Level 2938H, Total Cholesterol 346H, LDL Cholesterol , Non-HDL Cholesterol (LDL + VLDL) 322, Total HDL Cholesterol 24L, Cholesterol/HDL Ratio 14.416H 10/30/19 06:11: Bedside Glucose (Misc Panel) 282H 10/30/19 08:49: Bedside Glucose (Misc Panel) 281H 10/30/19 10:03: Bedside Glucose (Misc Panel) 304H CBC/BMP Laboratory Tests 10/29/19 15:40 10/30/19 05:14 GME ATTESTATION GME ATTESTATION My faculty preceptor for this patient encounter was physically present during the encounter and was fully available. All aspects of the patient interview, examination, medical decision making process, and medical care plan development were reviewed and approved by the faculty preceptor. The faculty preceptor is aware and concurs with the plan as stated in the body of this note and will attest to such by his/her cosignature. ATTENDING NOTE I, Lynne Ramirez, have independently examined this patient and performed my own physical exam, as well as reviewed the documentation. I have discussed in detail with the resident / student the findings and plan of treatment as documented by the resident / student. I agree with their findings and treatment plan. I will continue to follow the patient during this hospital stay. CHI BRIZUELA MD Oct 30, 2019 10:40 LYNNE RAMIREZ DO Oct 30, 2019 16:09
[2019-10-30] MEDS ORDERED: gemfibroziL 600 MG TAB PO SCH (17:30)
[2019-10-30 19:12] LABS: CHOLESTEROL LEVEL 357 MG/DL (<200); CHOLESTEROL RISK RATIO 15.521 (<5); HDL CHOLESTEROL 23 MG/DL (>40); NON-HDL-C 334 MG/DL; TRIGLYCERIDES LEVEL 2604 MG/DL (<150)
[2019-10-30] MEDS: ENOXAPARIN 40 MG/0.4 ML SYRINGE (J1650) SC SCH (20:30)
[2019-10-31] VITALS: BP 121/64
[2019-10-31] MEDS: INSULIN IV RATE CHANGE DOCUMENTATION ML/HR XX SCH ×9 (00:25→20:10)
[2019-10-31 01:53] LABS: BLOOD UREA NITROGEN 4 MG/DL (7-18); CALCIUM LEVEL 7.8 MG/DL (8.5-10.1); CARBON DIOXIDE LEVEL 24 MEQ/L (21-32); CHLORIDE LEVEL 102 MEQ/L (98-107); CREATININE FOR GFR 0.85 MG/DL (0.70-1.30); GLOMERULAR FILTRATION RATE > 60.0 (>60); GLUCOSE, FASTING 220 MG/DL (70-100); POTASSIUM SERUM 4.2 MEQ/L (3.5-5.1); SODIUM LEVEL 134 MEQ/L (136-145)
[2019-10-31] MEDS: KETOROLAC 30 MG/ML VIAL (J1885) IV PRN ×4 (02:21→20:05)
[2019-10-31] MEDS: D5W/0.45% SODIUM CHLORIDE 1,000 ML IV SCH ×2 (02:40→06:06)
[2019-10-31 04:00] VITALS: BP 128/68
[2019-10-31] MEDS: MORPHINE 2 MG/ML 1ML VIAL (J2270) IV PRN ×5 (04:11→20:06)
[2019-10-31 05:06] LABS: HEMATOCRIT 40.4 % (42.0-52.0); HEMOGLOBIN 13.3 g/dl (13.5-17.5); MEAN CORPUSCULAR HEMOGLOBIN 27.7 pg (27.0-33.0); MEAN CORPUSCULAR HGB CONC 32.9 g/dl (32.0-36.5); PLATELET COUNT, AUTOMATED 170 10^3/uL (150-450); RED BLOOD COUNT 4.81 10^6/uL (4.30-6.10); WHITE BLOOD COUNT 12.2 10^3/uL (4.0-10.0)
[2019-10-31] MEDS: INSULIN HUMAN REGULAR 100 UNITS in NS 99 ML IV SCH ×7 (05:06→23:01)
[2019-10-31 05:32] LABS: ALBUMIN 2.3 GM/DL (3.2-5.2); ALT/SGPT 114 U/L (12-78); BILIRUBIN,TOTAL 2.7 MG/DL (0.2-1.0); BLOOD UREA NITROGEN 4 MG/DL (7-18); CARBON DIOXIDE LEVEL 23 MEQ/L (21-32); CHLORIDE LEVEL 103 MEQ/L (98-107); CREATININE FOR GFR 0.81 MG/DL (0.70-1.30); GLOMERULAR FILTRATION RATE > 60.0 (>60); GLUCOSE, FASTING 165 MG/DL (70-100); POTASSIUM SERUM 3.2 MEQ/L (3.5-5.1); SODIUM LEVEL 133 MEQ/L (136-145)
[2019-10-31 05:42] LABS: TRIGLYCERIDES LEVEL 2012 MG/DL (<150)
[2019-10-31] MEDS ORDERED: POTASSIUM CHLORIDE 10 MEQ SR TABLET PO ONE (06:00)
[2019-10-31 07:33] VITALS: BP 131/75
[2019-10-31] MEDS: DOCUSATE SODIUM 100 MG CAP PO SCH ×2 (08:12→20:05)
[2019-10-31 08:56] LABS: ALBUMIN 2.4 GM/DL (3.2-5.2); ALT/SGPT 139 U/L (12-78); BLOOD UREA NITROGEN 4 MG/DL (7-18); CALCIUM LEVEL 7.9 MG/DL (8.5-10.1); CARBON DIOXIDE LEVEL 24 MEQ/L (21-32); CHLORIDE LEVEL 102 MEQ/L (98-107); CREATININE FOR GFR 0.89 MG/DL (0.70-1.30); GLOMERULAR FILTRATION RATE > 60.0 (>60); GLUCOSE, FASTING 141 MG/DL (70-100); POTASSIUM SERUM 3.6 MEQ/L (3.5-5.1); SODIUM LEVEL 133 MEQ/L (136-145); TOTAL PROTEIN 5.7 GM/DL (6.4-8.2)
[2019-10-31] MEDS ORDERED: ATORVASTATIN 20 MG TAB PO SCH (09:00)
[2019-10-31] MEDS: KCL 40MEQ IN D5/0.45NS 1000ML 1,000 ML IV SCH ×2 (10:02→14:51)
[2019-10-31 11:23] LABS: CPK CREATINE PHOSPHOKINASE 111 U/L (39-308); IRON (FE) 23 UG/DL (65-175); LIPASE 385 U/L (73-393); PERCENT SATURATION 11.3 % (19.7-50.0); TOTAL IRON BINDING CAPACITY 203 UG/DL (250-450)
--- NOTE | 2019-10-31 11:31 | IPNPDOC ---
Date Seen The patient was seen on 10/31/19. Progress Note SUBJECTIVE: Patient was seen and examined at the bedside this morning. He states he still has pain in his belly and he is concerned that his urine is very dark. He is able to tolerate a clear liquid diet. The patient denies any nausea, vomiting or diarrhea. Gastroenterology was consulted as his liver enzymes had increased since admission. OBJECTIVE PHYSICAL EXAMINATION: VITAL SIGNS: Please see below. GENERAL APPEARANCE: morbidly obese, sitting at edge of bed, appears stated age, no acute distress, calm, cooperative HEENT: EOMI, PERRLA, neck is supple with no thyromegaly or lymphadenopathy RESPIRATORY: Lungs are clear to auscultation bilaterally with no adventitious breath sounds appreciated CARDIOVASCULAR: no JVD, RRR, no murmurs/rubs/gallops ABDOMEN: obese, +BS, very tender to palpation in epigastrum and RUQ, +tolentino's sign EXTREMITIES: no clubbing, cyanosis or edema noted NEUROLOGICAL: No obvious focal deficits PSYCHIATRIC: normal mood/affect Skin: No rashes or ulcers. LN: No significant cervical or inguinal lymphadenopathy LABORATORY DATA: See below. IMAGING: MRCP: Liver: The liver is enlarged and measures 20.3 cm in craniocaudal dimension at the level of the right midclavicular line. The liver was not fully imaged. Gallbladder and bile ducts: Normal distended gallbladder. No gallstones, masses, gallbladder wall thickening, pericholecystic fluid, or pericholecystic inflammatory changes. No intrahepatic or extrahepatic biliary ductal dilation. The common bile duct measures 4 mm in diameter. Pancreas: There is inflammatory fat stranding around the pancreas, which is compatible with acute pancreatitis. There is no pseudocyst. No pancreatic mass is seen. No dilation of the main pancreatic duct is noted. Spleen: The spleen is enlarged measures 16 cm. The spleen was not fully imaged. Adrenals: Normal. No adrenal mass is noted. Kidneys: The imaged portions of the kidneys are unremarkable. There is no hydronephrosis. The kidneys were not fully imaged. Stomach and bowel: There is colonic diverticulosis. The bowel was not fully imaged. Retroperitoneal space: Unremarkable. No fluid collection. No mass. Intraperitoneal space: No abscess. There is a trace amount of free fluid in the right upper quadrant of the abdomen. Arteries: The abdominal aorta is normal in caliber. Lymph nodes: Normal. No enlarged lymph nodes. Bones/joints: The bone marrow signal is unremarkable. Soft tissues: Unremarkable. IMPRESSION: 1. Acute pancreatitis. 2. No cholelithiasis or choledocholithiasis. 3. Hepatosplenomegaly. 4. Colonic diverticulosis. MICROBIOLOGY: Please see below. ASSESSMENT: This is a 29 YO M with history of mood disorder who presents with 1 month history of epigastric and RUQ pain now worsened found to have leukocytosis at 14.8, transaminitis and elevated lipase at 1321. Gallbladder US demonstrates dilated gallbladder and CBD is dilated at 6.4mm concerning for choledocholithiasis. Triglycerides were elevated, therefore, the patient has been on insulin drip for empiric treatment of pancreatitis secondary to hypertriglyceridemia. PLAN: 1. Transaminitis (worsening), elevated bilirubin: Concern for acute hepatitis vs portal hypertension vs JOSEPH -AST/ALT have acutely increased on this admission, unsure if lipemic sample and inaccurate -Further workup for acute hepatitis: DENNIS, Anti-mitochondrial Ab, ANCA, Anti-Liver/kidney, Ceruloplasmin, IgG -Iron found to be low at 23 -US Liver doppler pending -Holding Atorvastatin for the time being 2. Dilated common bile duct: -US demonstrates CBD 6.4mm with dilated gallbladder, which is a bit large for his age -MRCP unrevealing of stones, found more likely pancreatitis -IVF and pain management as below -Clear liquid diet for now 3. Acute pancreatitis 2/2 hypertriglyceridemia: -Insulin drip in place -Kcl in D5/0.45NS 125 cc/hr -Trending lipids Q12H -Pain management with IV Toradol, IV Morphine -IV Zofran for nausea -High dose Atorvastatin 80mg started but held due to worsening liver function tests 4. Previously undiagnosed DM2: -A1c 12.6% -Continue insulin drip for now 5. Leukocytosis: WBC trended down to 12.2 today -No evidence of infection. Patient has been afebrile. Normal differential. Likely reactive 6. Obesity: -Complicates care. Will need dietary counseling at discharge DVT PPx: Lovenox DISPO: Pending improvement in triglycerides, improvement in pancreatitis VS, I&O, 24H, [facility] Vital Signs/I&O Vital Signs Date Time Temp Pulse Resp B/P (MAP) Pulse Ox O2 Delivery O2 Flow Rate FiO2 10/31/19 08:22 22 Room Air 10/31/19 07:33 99.1 108 131/75 (93) 98 I&O- Last 24 Hours up to 6 AM 10/31/19 06:00 Intake Total 8211 ml Output Total 1475 ml Balance 6736 ml Laboratory Data 24H LABS Laboratory Tests 2 10/30/19 11:32: Bedside Glucose (Misc Panel) 291H 10/30/19 12:22: Bedside Glucose (Misc Panel) 314H 10/30/19 12:51: Anion Gap 8, Glomerular Filtration Rate > 60.0, Calcium Level 7.2L, Total Bilirubin 2.0H, Aspartate Amino Transf (AST/SGOT) 101H, Alanine Aminotransferase (ALT/SGPT) 59, Alkaline Phosphatase 76, Total Protein 6.1L, Albumin 2.6L, Albumin/Globulin Ratio 0.74L 10/30/19 14:33: Bedside Glucose (Misc Panel) 301H 10/30/19 16:43: Bedside Glucose (Misc Panel) 280H 10/30/19 18:15: Triglycerides Level 2604H, Total Cholesterol 357H, LDL Cholesterol , Non-HDL Cholesterol (LDL + VLDL) 334, Total HDL Cholesterol 23L, Cholesterol/HDL Ratio 15.521H 10/30/19 18:30: Bedside Glucose (Misc Panel) 304H 10/30/19 20:22: Bedside Glucose (Misc Panel) 241H 10/30/19 22:31: Bedside Glucose (Misc Panel) 217H 10/31/19 00:23: Bedside Glucose (Misc Panel) 212H 10/31/19 01:19: Anion Gap 8, Glomerular Filtration Rate > 60.0, Calcium Level 7.8L 10/31/19 02:24: Bedside Glucose (Misc Panel) 204H 10/31/19 04:14: Bedside Glucose (Misc Panel) 167H 10/31/19 04:46: Nucleated Red Blood Cells % (auto) 0.0, Anion Gap 7L, Glomerular Filtration Rate > 60.0, Calcium Level 8.0L, Total Bilirubin 2.7H, Aspartate Amino Transf (AST/SGOT) 189H, Alanine Aminotransferase (ALT/SGPT) 114H, Alkaline Phosphatase 72, Total Protein 6.0L, Albumin 2.3L, Albumin/Globulin Ratio 0.62L, Triglycerides Level 2012H 10/31/19 06:07: Bedside Glucose (Misc Panel) 135H 10/31/19 07:56: Bedside Glucose (Misc Panel) 124H 10/31/19 07:57: Anion Gap 7L, Glomerular Filtration Rate > 60.0, Calcium Level 7.9L, Total Bilirubin 3.0H, Aspartate Amino Transf (AST/SGOT) 232H, Alanine Aminotransferase (ALT/SGPT) 139H, Alkaline Phosphatase 76, Total Protein 5.7L, Albumin 2.4L, Albumin/Globulin Ratio 0.73L 10/31/19 11:00: CBC/BMP Laboratory Tests 10/30/19 12:51 10/31/19 01:19 10/31/19 04:46 10/31/19 07:57 GME ATTESTATION GME ATTESTATION My faculty preceptor for this patient encounter was physically present during the encounter and was fully available. All aspects of the patient interview, examination, medical decision making process, and medical care plan development were reviewed and approved by the faculty preceptor. The faculty preceptor is aw are and concurs with the plan as stated in the body of this note and will attest to such by his/her cosignature. CHI BRIZUELA MD Oct 31, 2019 11:31
--- NOTE | 2019-10-31 11:33 | REP ---
PORTAL VENOUS VISCERAL DOPPLER ASSESSMENT: HISTORY: Pancreatitis. Portal hypertension. Comparison MRI study is from October 29, 2019. Comparison sonography same date. SONOGRAPHIC FINDINGS: The main portal vein measures 11.7 mm in diameter, which is not dilated. No portal venous thrombosis is appreciated. Exam quality is quite limited due to patient body habitus. Right intrahepatic portal vein branches are not seen. The left portal vein branches appear patent. The left and middle hepatic veins appear patent and show normal waveforms. Splenic venous velocity is recorded near the hilus at 12 cm/s. Peak systolic flow velocity in the hepatic artery is recorded at 186 cm/s. Portal vein venous velocity at the level of the hepatic patricia is 20.7 cm/s. Normal direction of flow. IMPRESSION: Limited study. No evidence of portal hypertension seen. Electronically Signed by Elliot Fish MD 10/31/2019 12:20 P
[2019-10-31 11:48] LABS: FREE T4 1.31 NG/DL (0.76-1.46); THYROID STIMULATING HORMONE 0.782 uIU/ML (0.358-3.740)
[2019-10-31 12:00] VITALS: BP 121/72
[2019-10-31 14:22] LABS: ALBUMIN 2.3 GM/DL (3.2-5.2); ALT/SGPT 157 U/L (12-78); BILIRUBIN,TOTAL 2.7 MG/DL (0.2-1.0); BLOOD UREA NITROGEN 3 MG/DL (7-18); CARBON DIOXIDE LEVEL 23 MEQ/L (21-32); CHLORIDE LEVEL 105 MEQ/L (98-107); CPK CREATINE PHOSPHOKINASE 66 U/L (39-308); CREATININE FOR GFR 0.91 MG/DL (0.70-1.30); GLOMERULAR FILTRATION RATE > 60.0 (>60); GLUCOSE, FASTING 152 MG/DL (70-100); POTASSIUM SERUM 3.9 MEQ/L (3.5-5.1); SODIUM LEVEL 135 MEQ/L (136-145); TOTAL PROTEIN 5.6 GM/DL (6.4-8.2)
[2019-10-31 16:00] VITALS: BP 131/72
[2019-10-31] MEDS ORDERED: KCL 20MEQ in NS 1000ML 1,000 ML IV SCH (18:15)
[2019-10-31] MEDS: KCL 20MEQ IN D5/0.45NS 1000ML 1,000 ML IV SCH (18:51)
[2019-10-31 20:00] VITALS: BP 124/71
[2019-10-31] MEDS: ENOXAPARIN 40 MG/0.4 ML SYRINGE (J1650) SC SCH (20:05)
[2019-10-31 20:23] LABS: ALBUMIN 2.4 GM/DL (3.2-5.2); ALT/SGPT 165 U/L (12-78); BLOOD UREA NITROGEN 3 MG/DL (7-18); CALCIUM LEVEL 8.2 MG/DL (8.5-10.1); CARBON DIOXIDE LEVEL 23 MEQ/L (21-32); CHLORIDE LEVEL 105 MEQ/L (98-107); CREATININE FOR GFR 1.03 MG/DL (0.70-1.30); GLOMERULAR FILTRATION RATE > 60.0 (>60); GLUCOSE, FASTING 162 MG/DL (70-100); POTASSIUM SERUM 3.9 MEQ/L (3.5-5.1); SODIUM LEVEL 136 MEQ/L (136-145); TOTAL PROTEIN 5.7 GM/DL (6.4-8.2)
[2019-11-01] VITALS: BP 125/71
[2019-11-01] MEDS: MORPHINE 2 MG/ML 1ML VIAL (J2270) IV PRN ×6 (00:13→21:19)
[2019-11-01] MEDS: KETOROLAC 30 MG/ML VIAL (J1885) IV PRN ×3 (00:13→08:25)
[2019-11-01] MEDS: INSULIN IV RATE CHANGE DOCUMENTATION ML/HR XX SCH ×4 (02:07→08:23)
[2019-11-01] MEDS: INSULIN HUMAN REGULAR 100 UNITS in NS 99 ML IV SCH ×6 (02:09→21:23)
[2019-11-01] MEDS ORDERED: METOCLOPRAMIDE INJ 10MG/2ML VIAL (J2765) IV ONE (02:30)
[2019-11-01 02:32] LABS: ALBUMIN 2.4 GM/DL (3.2-5.2); ALT/SGPT 187 U/L (12-78); BILIRUBIN,TOTAL 1.9 MG/DL (0.2-1.0); BLOOD UREA NITROGEN 4 MG/DL (7-18); CALCIUM LEVEL 8.1 MG/DL (8.5-10.1); CARBON DIOXIDE LEVEL 24 MEQ/L (21-32); CHLORIDE LEVEL 108 MEQ/L (98-107); CREATININE FOR GFR 0.93 MG/DL (0.70-1.30); GLOMERULAR FILTRATION RATE > 60.0 (>60); GLUCOSE, FASTING 87 MG/DL (70-100); POTASSIUM SERUM 3.6 MEQ/L (3.5-5.1); SODIUM LEVEL 139 MEQ/L (136-145)
[2019-11-01 04:00] VITALS: BP 135/63
[2019-11-01] MEDS: KCL 20MEQ IN D5/0.45NS 1000ML 1,000 ML IV SCH (06:18)
[2019-11-01 06:34] LABS: HEMATOCRIT 40.4 % (42.0-52.0); HEMOGLOBIN 12.8 g/dl (13.5-17.5); MEAN CORPUSCULAR HEMOGLOBIN 26.5 pg (27.0-33.0); MEAN CORPUSCULAR HGB CONC 31.7 g/dl (32.0-36.5); MEAN CORPUSCULAR VOLUME 83.6 fl (80.0-96.0); PLATELET COUNT, AUTOMATED 176 10^3/uL (150-450); RED BLOOD COUNT 4.83 10^6/uL (4.30-6.10); WHITE BLOOD COUNT 11.4 10^3/uL (4.0-10.0)
[2019-11-01 07:07] LABS: ALBUMIN 2.1 GM/DL (3.2-5.2); ALT/SGPT 194 U/L (12-78); BILIRUBIN,TOTAL 1.5 MG/DL (0.2-1.0); BLOOD UREA NITROGEN 4 MG/DL (7-18); CARBON DIOXIDE LEVEL 22 MEQ/L (21-32); CHLORIDE LEVEL 107 MEQ/L (98-107); CREATININE FOR GFR 0.95 MG/DL (0.70-1.30); GLOMERULAR FILTRATION RATE > 60.0 (>60); GLUCOSE, FASTING 168 MG/DL (70-100); POTASSIUM SERUM 3.4 MEQ/L (3.5-5.1); SODIUM LEVEL 136 MEQ/L (136-145); TOTAL PROTEIN 6.3 GM/DL (6.4-8.2); TRIGLYCERIDES LEVEL 1436 MG/DL (<150)
[2019-11-01 07:40] LABS: BILIRUBIN,DIRECT 0.9 MG/DL (0.0-0.2)
[2019-11-01 08:07] VITALS: BP 120/78
[2019-11-01] MEDS: KCL 40MEQ IN D5/0.45NS 1000ML 1,000 ML IV SCH ×2 (08:22→19:16)
[2019-11-01] MEDS: DOCUSATE SODIUM 100 MG CAP PO SCH ×2 (08:23→21:19)
[2019-11-01 08:26] LABS: INR 1.17; PROTHROMBIN TIME 14.7 SECONDS (11.8-14.0)
[2019-11-01 09:01] LABS: HEPATITIS B SURFACE ANTIGEN NEGATIVE (NEGATIVE)
[2019-11-01 09:28] LABS: HEPATITIS B CORE ANTIBODY IGM NEGATIVE (NEGATIVE); HEPATITIS C VIRUS ABY INDEX 0.1 INDEX (<0.8)
[2019-11-01 09:30] LABS: HIV 1&2 SCREEN CENTAUR NEGATIVE (NEGATIVE)
[2019-11-01 09:31] LABS: HEPATITIS A ANTIBODY IGM NEGATIVE (NEGATIVE)
[2019-11-01 11:56] VITALS: BP 128/92
[2019-11-01 14:29] LABS: ALBUMIN 2.6 GM/DL (3.2-5.2); ALT/SGPT 257 U/L (12-78); BILIRUBIN,TOTAL 1.4 MG/DL (0.2-1.0); BLOOD UREA NITROGEN 5 MG/DL (7-18); CALCIUM LEVEL 8.5 MG/DL (8.5-10.1); CARBON DIOXIDE LEVEL 24 MEQ/L (21-32); CHLORIDE LEVEL 103 MEQ/L (98-107); CREATININE FOR GFR 1.04 MG/DL (0.70-1.30); GLOMERULAR FILTRATION RATE > 60.0 (>60); GLUCOSE, FASTING 243 MG/DL (70-100); POTASSIUM SERUM 3.6 MEQ/L (3.5-5.1); SODIUM LEVEL 134 MEQ/L (136-145); TOTAL PROTEIN 6.6 GM/DL (6.4-8.2)
--- NOTE | 2019-11-01 14:33 | IPNPDOC ---
Date Seen The patient was seen on 11/01/19. Progress Note SUBJECTIVE: Patient was seen and examined at the bedside this morning. He states the pain in his belly has improved. He has no nausea, vomiting or diarrhea. He is able to tolerate clear liquid diet. He is ready to try regular food. He does report he has had a headache unrelieved with phenergan overnight. His urine is much less dark this morning as well. OBJECTIVE PHYSICAL EXAMINATION: VITAL SIGNS: Please see below. GENERAL APPEARANCE: morbidly obese, sitting at edge of bed, appears stated age, no acute distress, calm, cooperative HEENT: EOMI, PERRLA, neck is supple with no thyromegaly or lymphadenopathy RESPIRATORY: Lungs are clear to auscultation bilaterally with no adventitious breath sounds appreciated CARDIOVASCULAR: no JVD, RRR, no murmurs/rubs/gallops ABDOMEN: obese, +BS, somewhat tender to palpation in epigastrum and RUQ EXTREMITIES: no clubbing, cyanosis or edema noted NEUROLOGICAL: No obvious focal deficits PSYCHIATRIC: normal mood/affect Skin: No rashes or ulcers. LN: No significant cervical or inguinal lymphadenopathy LABORATORY DATA: See below. IMAGING: MRCP: Liver: The liver is enlarged and measures 20.3 cm in craniocaudal dimension at the level of the right midclavicular line. The liver was not fully imaged. Gallbladder and bile ducts: Normal distended gallbladder. No gallstones, masses, gallbladder wall thickening, pericholecystic fluid, or pericholecystic inflammatory changes. No intrahepatic or extrahepatic biliary ductal dilation. The common bile duct measures 4 mm in diameter. Pancreas: There is inflammatory fat stranding around the pancreas, which is compatible with acute pancreatitis. There is no pseudocyst. No pancreatic mass is seen. No dilation of the main pancreatic duct is noted. Spleen: The spleen is enlarged measures 16 cm. The spleen was not fully imaged. Adrenals: Normal. No adrenal mass is noted. Kidneys: The imaged portions of the kidneys are unremarkable. There is no hydronephrosis. The kidneys were not fully imaged. Stomach and bowel: There is colonic diverticulosis. The bowel was not fully imaged. Retroperitoneal space: Unremarkable. No fluid collection. No mass. Intraperitoneal space: No abscess. There is a trace amount of free fluid in the right upper quadrant of the abdomen. Arteries: The abdominal aorta is normal in caliber. Lymph nodes: Normal. No enlarged lymph nodes. Bones/joints: The bone marrow signal is unremarkable. Soft tissues: Unremarkable. IMPRESSION: 1. Acute pancreatitis. 2. No cholelithiasis or choledocholithiasis. 3. Hepatosplenomegaly. 4. Colonic diverticulosis. MICROBIOLOGY: Please see below. ASSESSMENT: This is a 29 YO M with history of mood disorder who presents with 1 month history of epigastric and RUQ pain now worsened found to have leukocytosis at 14.8, transaminitis and elevated lipase at 1321. Gallbladder US demonstrates dilated gallbladder and CBD is dilated at 6.4mm concerning for choledocholithiasis. Triglycerides were elevated, therefore, the patient has been on insulin drip for empiric treatment of pancreatitis secondary to hypertriglyceridemia. PLAN: 1. Transaminitis (worsening), elevated bilirubin: Concern for acute hepatitis vs portal hypertension vs JOSEPH -AST/ALT have acutely increased on this admission, unsure if lipemic sample and inaccurate -Further workup for acute hepatitis: DENNIS, Anti-mitochondrial Ab, ANCA, Anti-Liver/kidney, Ceruloplasmin, IgG pending -Iron found to be low at 23 -US Liver demonstrates no evidence thrombosis/portal hypertension -Holding Atorvastatin for the time being. Will resume at discharge 2. Dilated common bile duct: -US demonstrates CBD 6.4mm with dilated gallbladder, which is a bit large for his age -MRCP unrevealing of stones, found more likely pancreatitis -IVF and pain management as below -Will increase diet to consistent carb for now 3. Acute pancreatitis 2/2 hypertriglyceridemia: -Insulin drip in place -Kcl in D5/0.45NS 125 cc/hr -Trending lipids Q12H -Pain management with IV Toradol, IV Morphine -IV Zofran for nausea -High dose Atorvastatin 80mg started but held due to worsening liver function tests 4. Previously undiagnosed DM2: -A1c 12.6% -Continue insulin drip for now 5. Leukocytosis: WBC trended down to 12.2 today -No evidence of infection. Patient has been afebrile. Normal differential. Likely reactive 6. Obesity: -Complicates care. Will need dietary counseling at discharge DVT PPx: Lovenox DISPO: Pending improvement in triglycerides, improvement in pancreatitis VS, I&O, 24H, Fishbone Vital Signs/I&O Vital Signs Date Time Temp Pulse Resp B/P (MAP) Pulse Ox O2 Delivery O2 Flow Rate FiO2 11/01/19 08:35 20 11/01/19 08:07 97.5 95 120/78 (92) 99 Room Air I&O- Last 24 Hours up to 6 AM 11/01/19 06:00 Intake Total 3823 ml Output Total 3400 ml Balance 423 ml Laboratory Data 24H LABS Laboratory Tests 2 10/31/19 12:07: Bedside Glucose (Misc Panel) 151H 10/31/19 13:39: Anion Gap 7L, Glomerular Filtration Rate > 60.0, Calcium Level 8.0L, Total Bilirubin 2.7H, Aspartate Amino Transf (AST/SGOT) 239H, Alanine Aminotransferase (ALT/SGPT) 157H, Alkaline Phosphatase 74, Total Creatine Kinase 66, Total Protein 5.6L, Albumin 2.3L, Albumin/Globulin Ratio 0.70L, Triglycerides Level 1794H 10/31/19 14:12: Bedside Glucose (Misc Panel) 147H 10/31/19 16:09: Bedside Glucose (Misc Panel) 130H 10/31/19 17:56: Bedside Glucose (Misc Panel) 188H 10/31/19 19:28: Anion Gap 8, Glomerular Filtration Rate > 60.0, Calcium Level 8.2L, Total Bilirubin 2.0H, Aspartate Amino Transf (AST/SGOT) 243H, Alanine Aminotransferase (ALT/SGPT) 165H, Alkaline Phosphatase 73, Total Protein 5.7L, Albumin 2.4L, Albumin/Globulin Ratio 0.73L 10/31/19 20:09: Bedside Glucose (Misc Panel) 152H 10/31/19 22:18: Bedside Glucose (Misc Panel) 104 10/31/19 23:57: Bedside Glucose (Misc Panel) 91 11/01/19 01:36: Anion Gap 7L, Glomerular Filtration Rate > 60.0, Calcium Level 8.1L, Total Bilirubin 1.9H, Aspartate Amino Transf (AST/SGOT) 272H, Alanine Aminotransferase (ALT/SGPT) 187H, Alkaline Phosphatase 82, Total Protein 6.0L, Albumin 2.4L, Alb umin/Globulin Ratio 0.67L 11/01/19 02:05: Bedside Glucose (Misc Panel) 78 11/01/19 03:04: Bedside Glucose (Misc Panel) 83 11/01/19 04:09: Bedside Glucose (Misc Panel) 123H 11/01/19 06:07: Bedside Glucose (Misc Panel) 142H 11/01/19 06:21: Nucleated Red Blood Cells % (auto) 0.0, Anion Gap 7L, Glomerular Filtration Rate > 60.0, Calcium Level 8.0L, Total Bilirubin 1.5H, Direct Bilirubin 0.9H, Asparta te Amino Transf (AST/SGOT) 325H, Alanine Aminotransferase (ALT/SGPT) 194H, Alkaline Phosphatase 83, Total Protein 6.3L, Albumin 2.1L, Albumin/Globulin Ratio 0.50L, Triglycerides Level 1436H 11/01/19 08:04: Prothrombin Time 14.7H, Prothromb Time International Ratio 1.17, Activated Partial Thromboplast Time 38.0 11/01/19 08:15: Bedside Glucose (Misc Panel) 169H 11/01/19 09:01: Bedside Glucose (Misc Panel) 153H 11/01/19 10:02: Bedside Glucose (Misc Panel) 150H 11/01/19 11:02: Bedside Glucose (Misc Panel) 177H CBC/BMP Laboratory Tests 10/31/19 13:39 10/31/19 19:28 11/01/19 01:36 11/01/19 06:21 GME ATTESTATION GME ATTESTATION My faculty preceptor for this patient encounter was physically present during the encounter and was fully available. All aspects of the patient interview, examination, medical decision making process, and medical care plan development were reviewed and approved by the faculty preceptor. The faculty preceptor is aware and concurs with the plan as stated in the body of this note and will attest to such by his/her cosignature. CHI BRIZUELA MD Nov 01, 2019 11:56
[2019-11-01] MEDS: NAPROXEN 250 MG TAB PO PRN (16:23)
[2019-11-01 16:25] VITALS: BP 135/80
[2019-11-01 18:34] LABS: ALBUMIN 2.4 GM/DL (3.2-5.2); ALT/SGPT 230 U/L (12-78); BLOOD UREA NITROGEN 5 MG/DL (7-18); CALCIUM LEVEL 8.5 MG/DL (8.5-10.1); CARBON DIOXIDE LEVEL 24 MEQ/L (21-32); CHLORIDE LEVEL 104 MEQ/L (98-107); CREATININE FOR GFR 0.95 MG/DL (0.70-1.30); GLOMERULAR FILTRATION RATE > 60.0 (>60); GLUCOSE, FASTING 219 MG/DL (70-100); POTASSIUM SERUM 3.6 MEQ/L (3.5-5.1); SODIUM LEVEL 135 MEQ/L (136-145); TOTAL PROTEIN 6.2 GM/DL (6.4-8.2)
[2019-11-01 20:00] VITALS: BP 142/70
[2019-11-01] MEDS: ENOXAPARIN 40 MG/0.4 ML SYRINGE (J1650) SC SCH (21:19)
[2019-11-02] VITALS: BP 141/76
[2019-11-02] MEDS: MORPHINE 2 MG/ML 1ML VIAL (J2270) IV PRN ×6 (00:45→20:15)
[2019-11-02 02:17] LABS: ALBUMIN 2.2 GM/DL (3.2-5.2); ALT/SGPT 189 U/L (12-78); BILIRUBIN,TOTAL 0.8 MG/DL (0.2-1.0); BLOOD UREA NITROGEN 5 MG/DL (7-18); CALCIUM LEVEL 8.5 MG/DL (8.5-10.1); CARBON DIOXIDE LEVEL 26 MEQ/L (21-32); CHLORIDE LEVEL 103 MEQ/L (98-107); CREATININE FOR GFR 0.91 MG/DL (0.70-1.30); GLOMERULAR FILTRATION RATE > 60.0 (>60); GLUCOSE, FASTING 219 MG/DL (70-100); POTASSIUM SERUM 3.4 MEQ/L (3.5-5.1); SODIUM LEVEL 136 MEQ/L (136-145); TOTAL PROTEIN 6.3 GM/DL (6.4-8.2)
[2019-11-02] MEDS: NAPROXEN 250 MG TAB PO PRN ×2 (03:21→20:25)
[2019-11-02] MEDS: INSULIN HUMAN REGULAR 100 UNITS in NS 99 ML IV SCH ×4 (03:22→22:15)
[2019-11-02 04:00] VITALS: BP 133/70
[2019-11-02 05:55] LABS: HEMATOCRIT 39.5 % (42.0-52.0); HEMOGLOBIN 12.9 g/dl (13.5-17.5); MEAN CORPUSCULAR HEMOGLOBIN 27.1 pg (27.0-33.0); MEAN CORPUSCULAR HGB CONC 32.7 g/dl (32.0-36.5); PLATELET COUNT, AUTOMATED 209 10^3/uL (150-450); RED BLOOD COUNT 4.76 10^6/uL (4.30-6.10); WHITE BLOOD COUNT 10.2 10^3/uL (4.0-10.0)
[2019-11-02 06:20] LABS: ALBUMIN 2.3 GM/DL (3.2-5.2); ALT/SGPT 178 U/L (12-78); BILIRUBIN,TOTAL 0.9 MG/DL (0.2-1.0); BLOOD UREA NITROGEN 5 MG/DL (7-18); CALCIUM LEVEL 8.3 MG/DL (8.5-10.1); CARBON DIOXIDE LEVEL 25 MEQ/L (21-32); CHLORIDE LEVEL 105 MEQ/L (98-107); CREATININE FOR GFR 0.81 MG/DL (0.70-1.30); GLOMERULAR FILTRATION RATE > 60.0 (>60); GLUCOSE, FASTING 152 MG/DL (70-100); POTASSIUM SERUM 3.2 MEQ/L (3.5-5.1); SODIUM LEVEL 137 MEQ/L (136-145); TOTAL PROTEIN 6.2 GM/DL (6.4-8.2)
[2019-11-02] MEDS: KCL 40MEQ IN D5/0.45NS 1000ML 1,000 ML IV SCH (06:26)
[2019-11-02 07:48] LABS: TRIGLYCERIDES LEVEL 952 MG/DL (<150)
[2019-11-02 08:00] VITALS: BP 159/90
[2019-11-02] MEDS: DOCUSATE SODIUM 100 MG CAP PO SCH ×2 (08:38→20:14)
[2019-11-02] MEDS: DEXTROSE 50% 50 ML SYRINGE IV PRN ×2 (08:39→18:18)
[2019-11-02] MEDS ORDERED: KCL 10MEQ/100ML SWI (KRUN) 10 MEQ in IV 1 EA IV SCH (09:00)
[2019-11-02] MEDS ORDERED: POTASSIUM CHLORIDE 10 MEQ SR TABLET PO ONE (10:15)
[2019-11-02 12:00] VITALS: BP 147/83
--- NOTE | 2019-11-02 14:44 | IPNPDOC ---
Date Seen The patient was seen on 11/02/19. Progress Note SUBJECTIVE: Patient was seen and examined at the bedside this morning. He states the pain in his belly has improved. No nausea/vomiting/diarrhea. He is tolerating his diet. OBJECTIVE PHYSICAL EXAMINATION: VITAL SIGNS: Please see below. GENERAL APPEARANCE: morbidly obese, sitting at edge of bed, appears stated age, no acute distress, calm, cooperative HEENT: EOMI, PERRLA, neck is supple with no thyromegaly or lymphadenopathy RESPIRATORY: Lungs are clear to auscultation bilaterally with no adventitious breath sounds appreciated CARDIOVASCULAR: no JVD, RRR, no murmurs/rubs/gallops ABDOMEN: obese, +BS, somewhat tender to palpation in epigastrum and RUQ, otherwise no masses, no organomegaly EXTREMITIES: no clubbing, cyanosis or edema noted NEUROLOGICAL: No obvious focal deficits PSYCHIATRIC: normal mood/affect Skin: No rashes or ulcers. LN: No significant cervical or inguinal lymphadenopathy LABORATORY DATA: See below. IMAGING: MRCP: Liver: The liver is enlarged and measures 20.3 cm in craniocaudal dimension at the level of the right midclavicular line. The liver was not fully imaged. Gallbladder and bile ducts: Normal distended gallbladder. No gallstones, masses, gallbladder wall thickening, pericholecystic fluid, or pericholecystic inflammatory changes. No intrahepatic or extrahepatic biliary ductal dilation. The common bile duct measures 4 mm in diameter. Pancreas: There is inflammatory fat stranding around the pancreas, which is compatible with acute pancreatitis. There is no pseudocyst. No pancreatic mass is seen. No dilation of the main pancreatic duct is noted. Spleen: The spleen is enlarged measures 16 cm. The spleen was not fully imaged. Adrenals: Normal. No adrenal mass is noted. Kidneys: The imaged portions of the kidneys are unremarkable. There is no hydronephrosis. The kidneys were not fully imaged. Stomach and bowel: There is colonic diverticulosis. The bowel was not fully imaged. Retroperitoneal space: Unremarkable. No fluid collection. No mass. Intraperitoneal space: No abscess. There is a trace amount of free fluid in the right upper quadrant of the abdomen. Arteries: The abdominal aorta is normal in caliber. Lymph nodes: Normal. No enlarged lymph nodes. Bones/joints: The bone marrow signal is unremarkable. Soft tissues: Unremarkable. IMPRESSION: 1. Acute pancreatitis. 2. No cholelithiasis or choledocholithiasis. 3. Hepatosplenomegaly. 4. Colonic diverticulosis. MICROBIOLOGY: Please see below. ASSESSMENT: This is a 29 YO M with history of mood disorder who presents with 1 month history of epigastric and RUQ pain now worsened found to have leukocytosis at 14.8, transaminitis and elevated lipase at 1321. Gallbladder US demonstrates dilated gallbladder and CBD is dilated at 6.4mm concerning for jose docholithiasis. Triglycerides were elevated, therefore, the patient has been on insulin drip for empiric treatment of pancreatitis secondary to hypertriglyceridemia. PLAN: 1. Transaminitis (worsening), elevated bilirubin: Concern for acute hepatitis vs portal hypertension vs JOSEPH -AST/ALT have acutely increased on this admission, unsure if lipemic sample and inaccurate -Further workup for acute hepatitis: DENNIS, Anti-mitochondrial Ab, ANCA, Anti- Liver/kidney, Ceruloplasmin, IgG pending -Iron found to be low at 23 -US Liver demonstrates no evidence thrombosis/portal hypertension -Holding Atorvastatin for the time being. Will resume at discharge 2. Dilated common bile duct: -US demonstrates CBD 6.4mm with dilated gallbladder, which is a bit large for his age -MRCP unrevealing of stones, found more likely pancreatitis -IVF and pain management as below -Will increase diet to consistent carb for now 3. Acute pancreatitis 2/2 hypertriglyceridemia: -Insulin drip in place, 16 units per hour -Kcl in D5/0.45NS 125 cc/hr -Trending lipids Q12H. Triglycerides down to 952 today -Pain management with IV Toradol, IV Morphine -IV Zofran for nausea -High dose Atorvastatin 80mg started but held due to worsening liver function tests 4. Previously undiagnosed DM2: -A1c 12.6% -Continue insulin drip for now -ABGs teaching prior to discharge 5. Leukocytosis: WBC trended down to 10.2 today -No evidence of infection. Patient has been afebrile. Normal differential. Likely reactive 6. Obesity: -Complicates care. Will need dietary counseling at discharge DVT PPx: Lovenox DISPO: Pending improvement in triglycerides, improvement in pancreatitis VS, I&O, 24H, Fishbone Vital Signs/I&O Vital Signs Date Time Temp Pulse Resp B/P (MAP) Pulse Ox O2 Delivery O2 Flow Rate FiO2 11/02/19 09:11 18 11/02/19 04:00 98.0 97 133/70 (91) 98 Room Air I&O- Last 24 Hours up to 6 AM 11/02/19 06:00 Intake Total 5594 ml Output Total 3300 ml Balance 2294 ml Laboratory Data 24H LABS Laboratory Tests 2 11/01/19 11:57: Bedside Glucose (Misc Panel) 191H 11/01/19 12:51: Bedside Glucose (Misc Panel) 206H 11/01/19 13:40: Anion Gap 7L, Glomerular Filtration Rate > 60.0, Calcium Level 8.5, Total Bilirubin 1.4H, Aspartate Amino Transf (AST/SGOT) 360H, Alanine Aminotransferase (ALT/SGPT) 257H, Alkaline Phosphatase 108, Total Protein 6.6, Albumin 2.6#L, Albumin/Globulin Ratio 0.65L 11/01/19 14:05: Bedside Glucose (Misc Panel) 287H 11/01/19 15:04: Bedside Glucose (Misc Panel) 269H 11/01/19 16:12: Bedside Glucose (Misc Panel) 228H 11/01/19 17:20: Bedside Glucose (Misc Panel) 236H 11/01/19 17:55: Anion Gap 7L, Glomerular Filtration Rate > 60.0, Calcium Level 8.5, Total Bilirubin 1.0, Aspartate Amino Transf (AST/SGOT) 282H, Alanine Aminotransferase (ALT/SGPT) 230H, Alkaline Phosphatase 105, Total Protein 6.2L, Albumin 2.4L, Albumin/Globulin Ratio 0.63L, Triglycerides Level 1422H 11/01/19 18:10: Bedside Glucose (Misc Panel) 207H 11/01/19 19:17: Bedside Glucose (Misc Panel) 231H 11/01/19 20:21: Bedside Glucose (Misc Panel) 214H 11/01/19 21:23: Bedside Glucose (Misc Panel) 222H 11/01/19 22:21: Bedside Glucose (Misc Panel) 208H 11/01/19 23:27: Bedside Glucose (Misc Panel) 210H 11/02/19 00:43: Bedside Glucose (Misc Panel) 221H 11/02/19 01:34: Anion Gap 7L, Glomerular Filtration Rate > 60.0, Calcium Level 8.5, Total Bilirubin 0.8, Aspartate Amino Transf (AST/SGOT) 217H, Alanine Aminotransferase (ALT/SGPT) 189H, Alkaline Phosphatase 108, Total Protein 6.3L, Albumin 2.2L, Albumin/Globulin Ratio 0.54L 11/02/19 02:26: Bedside Glucose (Misc Panel) 190H 11/02/19 03:24: Bedside Glucose (Misc Panel) 198H 11/02/19 04:30: Bedside Glucose (Misc Panel) 160H 11/02/19 05:40: Nucleated Red Blood Cells % (auto) 0.0, Anion Gap 7L, Glomerular Filtration Rate > 60.0, Calcium Level 8.3L, Total Bilirubin 0.9, Aspartate Amino Transf (AST/SGOT) 187H, Alanine Aminotransferase (ALT/SGPT) 178H, Alkaline Phosphatase 94, Total Protein 6.2L, Albumin 2.3L, Albumin/Globulin Ratio 0.59L, Triglycerides Level 952H 11/02/19 06:24: Bedside Glucose (Misc Panel) 125H 11/02/19 07:06: Bedside Glucose (Misc Panel) 118H 11/02/19 08:06: Bedside Glucose (Misc Panel) 99 11/02/19 09:08: Bedside Glucose (Misc Panel) 97 11/02/19 09:59: Bedside Glucose (Misc Panel) 141H 11/02/19 10:59: Bedside Glucose (Misc Panel) 152H CBC/BMP Laboratory Tests 11/01/19 13:40 11/01/19 17:55 11/02/19 01:34 11/02/19 05:40 GME ATTESTATION GME ATTESTATION My faculty preceptor for this patient encounter was physically present during t he encounter and was fully available. All aspects of the patient interview, examination, medical decision making process, and medical care plan development were reviewed and approved by the faculty preceptor. The faculty preceptor is aware and concurs with the plan as stated in the body of this note and will attest to such by his/her cosignature. CHI BRIZUELA MD Nov 02, 2019 11:47
[2019-11-02 16:00] VITALS: BP 140/74
[2019-11-02 16:32] LABS: BLOOD UREA NITROGEN 6 MG/DL (7-18); CALCIUM LEVEL 8.3 MG/DL (8.5-10.1); CARBON DIOXIDE LEVEL 27 MEQ/L (21-32); CHLORIDE LEVEL 106 MEQ/L (98-107); CREATININE FOR GFR 0.89 MG/DL (0.70-1.30); GLOMERULAR FILTRATION RATE > 60.0 (>60); GLUCOSE, FASTING 158 MG/DL (70-100); POTASSIUM SERUM 3.8 MEQ/L (3.5-5.1); SODIUM LEVEL 138 MEQ/L (136-145); TRIGLYCERIDES LEVEL 859 MG/DL (<150)
[2019-11-02 20:00] VITALS: BP 143/90
[2019-11-02] MEDS: ENOXAPARIN 40 MG/0.4 ML SYRINGE (J1650) SC SCH (20:14)
[2019-11-02 22:28] LABS: BLOOD UREA NITROGEN 8 MG/DL (7-18); CALCIUM LEVEL 8.3 MG/DL (8.5-10.1); CARBON DIOXIDE LEVEL 27 MEQ/L (21-32); CHLORIDE LEVEL 104 MEQ/L (98-107); CREATININE FOR GFR 0.91 MG/DL (0.70-1.30); GLOMERULAR FILTRATION RATE > 60.0 (>60); GLUCOSE, FASTING 213 MG/DL (70-100); POTASSIUM SERUM 3.9 MEQ/L (3.5-5.1); SODIUM LEVEL 137 MEQ/L (136-145)
[2019-11-03] VITALS: BP 136/63
[2019-11-03] MEDS: MORPHINE 2 MG/ML 1ML VIAL (J2270) IV PRN ×3 (00:40→08:30)
[2019-11-03] MEDS: DEXTROSE 50% 50 ML SYRINGE IV PRN ×4 (00:44→07:19)
[2019-11-03 02:06] LABS: BLOOD UREA NITROGEN 8 MG/DL (7-18); CALCIUM LEVEL 8.8 MG/DL (8.5-10.1); CARBON DIOXIDE LEVEL 28 MEQ/L (21-32); CHLORIDE LEVEL 104 MEQ/L (98-107); CREATININE FOR GFR 0.84 MG/DL (0.70-1.30); GLOMERULAR FILTRATION RATE > 60.0 (>60); GLUCOSE, FASTING 172 MG/DL (70-100); POTASSIUM SERUM 3.8 MEQ/L (3.5-5.1); SODIUM LEVEL 138 MEQ/L (136-145)
[2019-11-03] MEDS: INSULIN HUMAN REGULAR 100 UNITS in NS 99 ML IV SCH ×2 (03:37→10:21)
[2019-11-03 04:00] VITALS: BP 131/62
[2019-11-03 05:14] LABS: BLOOD UREA NITROGEN 7 MG/DL (7-18); CALCIUM LEVEL 8.9 MG/DL (8.5-10.1); CARBON DIOXIDE LEVEL 25 MEQ/L (21-32); CHLORIDE LEVEL 105 MEQ/L (98-107); CREATININE FOR GFR 0.79 MG/DL (0.70-1.30); GLOMERULAR FILTRATION RATE > 60.0 (>60); GLUCOSE, FASTING 180 MG/DL (70-100); POTASSIUM SERUM 3.4 MEQ/L (3.5-5.1); SODIUM LEVEL 138 MEQ/L (136-145); TRIGLYCERIDES LEVEL 661 MG/DL (<150)
[2019-11-03] MEDS: DOCUSATE SODIUM 100 MG CAP PO SCH ×2 (07:19→21:14)
[2019-11-03 09:31] LABS: BLOOD UREA NITROGEN 7 MG/DL (7-18); CALCIUM LEVEL 8.5 MG/DL (8.5-10.1); CARBON DIOXIDE LEVEL 29 MEQ/L (21-32); CHLORIDE LEVEL 103 MEQ/L (98-107); GLOMERULAR FILTRATION RATE > 60.0 (>60); GLUCOSE, FASTING 177 MG/DL (70-100); POTASSIUM SERUM 3.8 MEQ/L (3.5-5.1); SODIUM LEVEL 139 MEQ/L (136-145)
[2019-11-03] MEDS: NAPROXEN 250 MG TAB PO PRN (10:20)
[2019-11-03 12:00] VITALS: BP 134/76
[2019-11-03 12:46] LABS: TRIGLYCERIDES LEVEL 574 MG/DL (<150)
[2019-11-03] MEDS: traMADol 50 MG TAB PO PRN ×2 (13:31→21:15)
[2019-11-03] MEDS ORDERED: GLUCOSE 4 GM CHEW TABLET PO PRN (13:45)
[2019-11-03] MEDS ORDERED: DEXTROSE 50% 50 ML SYRINGE IV PRN (13:45)
[2019-11-03] MEDS ORDERED: GLUCAGON FOR INJ 1 MG VIAL (J1610) SC PRN (13:45)
--- NOTE | 2019-11-03 13:59 | IPNPDOC ---
Text Note Date of Service The patient was seen on 11/03/19. NOTE Subjective: No any acute events overnight. Patient complains of mild epigastric abdominal pain. Patient denied fever, chills, nausea, vomiting, diarrhea or dysuria Objective: VITAL SIGNS: Please see below. GENERAL APPEARANCE: Well-nourished, well-developed, not in apparent distress HEENT: Normocephalic, atraumatic. Mucous members moist and pink CARDIOVASCULAR: Regular rate and rhythm. No murmurs, rubs or gallops. Radial pulses are intact. There is no lower extremity edema LUNGS: Diminished lung sounds ABDOMEN: Abdomen is soft and nontender. MUSCULOSKELETAL: Range of motion is intact in all 4 extremities NEUROLOGICAL: Cranial nerves II-12 are grossly intact. Speech is not dysarthric Patient is 29 years old male with past history of morbid obesity presented hospital with acute pancreatitis secondary to hypertriglyceridemia. During hospital stay patient received treatment with insulin drip with positive effect. Acute pancreatitis secondary to hypertriglyceridemia Resolved after insulin drip I stopped insulin drip, insulin sliding scale restarted with detemir 20 units twice a day Workup for autoimmune pancreatitis pending Diabetes type 2 Undiagnosed Patient will need diabetes education before discharge Insulin sliding scale Detemir 20 units twice a day Transaminitis Most likely secondary to hypertriglyceridemia Hepatitis panel negative Autoimmune workup pending Morbid obesity Patient will benefit from bariatric surgery VS,Rolande, I+O VS, Rolande, I+O Laboratory Tests 11/02/19 15:56 11/02/19 21:19 11/03/19 01:19 11/03/19 04:39 11/03/19 08:57 Vital Signs Date Time Temp Pulse Resp B/P (MAP) Pulse Ox O2 Delivery O2 Flow Rate FiO2 11/03/19 13:31 20 11/03/19 12:00 98.1 84 134/76 (95) 98 Room Air I&O- Last 24 Hours up to 6 AM 11/03/19 05:59 Intake Total 3037 ml Output Total 4300 ml Balance -1263 ml LYNNE RAMIREZ DO Nov 03, 2019 13:59
[2019-11-03 15:20] VITALS: BP 157/99
[2019-11-03 18:00] VITALS: BP_SYST 138; BP_SYST 160; BP_DIAS 102; BP_DIAS 84
[2019-11-03 18:10] LABS: BLOOD UREA NITROGEN 9 MG/DL (7-18); CALCIUM LEVEL 9.1 MG/DL (8.5-10.1); CARBON DIOXIDE LEVEL 24 MEQ/L (21-32); CHLORIDE LEVEL 100 MEQ/L (98-107); CREATININE FOR GFR 0.98 MG/DL (0.70-1.30); GLOMERULAR FILTRATION RATE > 60.0 (>60); GLUCOSE, FASTING 331 MG/DL (70-100); SODIUM LEVEL 133 MEQ/L (136-145)
[2019-11-03] MEDS: HumaLOG INSULIN (NovoLOG) PER UNIT SC SCH (18:31)
[2019-11-03 19:15] LABS: BLOOD UREA NITROGEN 6 MG/DL (7-18); CALCIUM LEVEL 8.3 MG/DL (8.5-10.1); CARBON DIOXIDE LEVEL 27 MEQ/L (21-32); CHLORIDE LEVEL 103 MEQ/L (98-107); CREATININE FOR GFR 0.82 MG/DL (0.70-1.30); GLOMERULAR FILTRATION RATE > 60.0 (>60); GLUCOSE, FASTING 163 MG/DL (70-100); POTASSIUM SERUM 3.5 MEQ/L (3.5-5.1); SODIUM LEVEL 139 MEQ/L (136-145)
[2019-11-03 20:30] VITALS: BP 145/80
[2019-11-03] MEDS ORDERED: HumaLOG INSULIN (NovoLOG) PER UNIT SC SCH (21:00)
[2019-11-03] MEDS ORDERED: LEVEMIR (INSULIN DETEMIR) 1 UNITS/0.01ML SC SCH ×3 (21:00)
[2019-11-03] MEDS: ENOXAPARIN 40 MG/0.4 ML SYRINGE (J1650) SC SCH (21:14)
[2019-11-03 22:20] LABS: BLOOD UREA NITROGEN 10 MG/DL (7-18); CALCIUM LEVEL 8.5 MG/DL (8.5-10.1); CARBON DIOXIDE LEVEL 27 MEQ/L (21-32); CHLORIDE LEVEL 100 MEQ/L (98-107); CREATININE FOR GFR 0.92 MG/DL (0.70-1.30); GLOMERULAR FILTRATION RATE > 60.0 (>60); GLUCOSE, FASTING 328 MG/DL (70-100); POTASSIUM SERUM 4.4 MEQ/L (3.5-5.1); SODIUM LEVEL 135 MEQ/L (136-145)
[2019-11-04 02:01] VITALS: BP 140/89
[2019-11-04 06:25] VITALS: BP 140/80
[2019-11-04] MEDS: NAPROXEN 250 MG TAB PO PRN (06:43)
[2019-11-04] MEDS: DOCUSATE SODIUM 100 MG CAP PO SCH (07:46)
[2019-11-04] MEDS: HumaLOG INSULIN (NovoLOG) PER UNIT SC SCH ×2 (07:46→11:34)
[2019-11-04] MEDS: traMADol 50 MG TAB PO PRN (07:59)
[2019-11-04] MEDS ORDERED: GLUC1TES2 XX (07:59)
[2019-11-04] MEDS ORDERED: PEN1MIS22 SC (07:59)
[2019-11-04] MEDS ORDERED: ALCOPAD25 TOP (07:59)
[2019-11-04] MEDS ORDERED: LANC30MI XX (07:59)
[2019-11-04] MEDS ORDERED: BLOOKIT21 XX (07:59)
[2019-11-04] MEDS ORDERED: INSU1MIS20 SC (07:59)
[2019-11-04] MEDS ORDERED: LEVEMIR (INSULIN DETEMIR) 1 UNITS/0.01ML SC SCH ×2 (09:00)
[2019-11-04] MEDS ORDERED: ATOR80TA59 PO (09:01)
[2019-11-04 10:00] VITALS: BP 170/90
--- NOTE | 2019-11-04 10:36 | DS.PDOC ---
Discharge Summary General Date of Admission Oct 29, 2019 at 18:41 Date of Discharge 11/04/2019 Attending Physician: LYNNE RAMIREZ DO Specialist/Consultants Involve: ARSLAN GONZALEZ MD Discharge Summary PROCEDURES PERFORMED DURING STAY: [None]. ADMITTING DIAGNOSES: 1. Dilated CBD and gallbladder 2. Acute epigastric abdominal pain DISCHARGE DIAGNOSES: 1. Pancreatitis 2/2 hypertriglyceridemia 2. DM2 previously undiagnosed COMPLICATIONS/CHIEF COMPLAINT: Pancreatitis. HISTORY OF PRESENT ILLNESS: Jone Marie is a 29 YO M with past medical history substance abuse and mood disorder who presents with 1 month history epigastric pain radiating to RUQ. He states that the pain has mostly been intermittent before today, worsening with meals, and unrelieved by antacids and [id number] pain medication. He states that for the past 24 hours the pain has been sharp, stabbing and has radiated to his back. He denies any recent fevers, chills, or night sweats. he reports he did have one episode of nausea and emesis this morning. He has decreased appetite and intentional 40 lb weight loss over the past 6 months. Denies any changes in his stool. HOSPITAL COURSE: Patient presented to the ED with worsening epigastric and RUQ pain especially after meals. A RUQ US was ordered and he was found to have dilated gallbladder and CBD. MRCP was done and did not find any stones, but did demonstrate pancreatitis. He was also found to have a HbA1c of 12.6%. His t riglycerides were found to be elevated at 2383 and he was placed on insulin drip in the ICU. Triglycerides were trended BID. The patient was started on a diet and was able to tolerate regular food. On HD # 6 the patient's triglycerides trended down to 574. He was instructed on diabetes regimen and was discharged home in stable state with instructions to follow up in the E clinic as soon as possible. DISCHARGE MEDICATIONS: Please see below. ALLERGIES: Please see below. PHYSICAL EXAMINATION ON DISCHARGE: VITAL SIGNS: Please see below. GENERAL APPEARANCE: morbidly obese, sitting at edge of bed, appears stated age, no acute distress, calm, cooperative HEENT: EOMI, PERRLA, neck is supple with no thyromegaly or lymphadenopathy RESPIRATORY: Lungs are clear to auscultation bilaterally with no adventitious breath sounds appreciated CARDIOVASCULAR: no JVD, RRR, no murmurs/rubs/gallops ABDOMEN: obese, +BS, somewhat tender to palpation in epigastrum and RUQ, otherwise no masses, no organomegaly EXTREMITIES: no clubbing, cyanosis or edema noted NEUROLOGICAL: No obvious focal deficits PSYCHIATRIC: normal mood/affect Skin: No rashes or ulcers. LN: No significant cervical or inguinal lymphadenopathy LABORATORY DATA: Please see below. IMAGING: MRCP: Liver: The liver is enlarged and measures 20.3 cm in craniocaudal dimension at the level of the right midclavicular line. The liver was not fully imaged. Gallbladder and bile ducts: Normal distended gallbladder. No gallstones, masses, gallbladder wall thickening, pericholecystic fluid, or pericholecystic inflammatory changes. No intrahepatic or extrahepatic biliary ductal dilation. The common bile duct measures 4 mm in diameter. Pancreas: There is inflammatory fat stranding around the pancreas, which is compatible with acute pancreatitis. There is no pseudocyst. No pancreatic mass is seen. No dilation of the main pancreatic duct is noted. Spleen: The spleen is enlarged measures 16 cm. The spleen was not fully imaged. Adrenals: Normal. No adrenal mass is noted. Kidneys: The imaged portions of the kidneys are unremarkable. There is no hydronephrosis. The kidneys were not fully imaged. Stomach and bowel: There is colonic diverticulosis. The bowel was not fully imaged. Retroperitoneal space: Unremarkable. No fluid collection. No mass. Intraperitoneal space: No abscess. There is a trace amount of free fluid in the right upper quadrant of the abdomen. Arteries: The abdominal aorta is normal in caliber. Lymph nodes: Normal. No enlarged lymph nodes. Bones/joints: The bone marrow signal is unremarkable. Soft tissues: Unremarkable. IMPRESSION: 1. Acute pancreatitis. 2. No cholelithiasis or choledocholithiasis. 3. Hepatosplenomegaly. 4. Colonic diverticulosis. GALLBLADDER US: FINDINGS: Liver: The liver demonstrates increased echogenicity with decreased visualization of periportal fat with severe sound attenuation. Gallbladder: The gallbladder transverse lumen measures 5.0 x 5.2 cm. The gallbladder length is 13.2 cm. The gallbladder wall measures 1.2 mm. No gallstones. Common bile duct: The common bile duct measures 6.4 mm. No ductal calculi as visualized. Pancreas: The pancreas is partially obscured by bowel gas, unremarkable where visualized. Right kidney: The right kidney measures 12.5 x 6.1 x 6.2 cm. Unremarkable. IMPRESSION: 1. Limitations as above. 2. Dilated gallbladder, mildly enlarged common bile duct. No choledocholithiasis identified as visualized. MRCP may be helpful if indicated. 3. Fatty infiltration of the liver. PROGNOSIS: fair ACTIVITY: [As tolerated]. DIET: consistent carbohydrate DISCHARGE PLAN: home DISPOSITION: . DISCHARGE INSTRUCTIONS: 1. Follow up in [facility] as soon as possible ITEMS TO FOLLOWUP ON ON OUTPATIENT: 1. none DISCHARGE CONDITION: [Stable]. TIME SPENT ON DISCHARGE: Greater than 35 minutes. Vital Signs/I&Os Vital Signs Date Time Temp Pulse Resp B/P (MAP) Pulse Ox O2 Delivery O2 Flow Rate FiO2 11/04/19 08:29 18 11/04/19 06:25 97.6 79 140/80 (100) 99 Room Air I&O- Last 24 Hours up to 6 AM 11/04/19 06:00 Intake Total 1482 ml Output Total 800 ml Balance 682 ml Laboratory Data Labs 24H Laboratory Tests 2 11/03/19 10:19: Bedside Glucose (Misc Panel) 184H 11/03/19 11:27: Bedside Glucose (Misc Panel) 155H 11/03/19 12:01: Anion Gap 9, Glomerular Filtration Rate > 60.0, Calcium Level 8.3L, Triglycerides Level 574H 11/03/19 12:03: Bedside Glucose (Misc Panel) 168H 11/03/19 13:26: Bedside Glucose (Misc Panel) 196H 11/03/19 17:34: Anion Gap 9, Glomerular Filtration Rate > 60.0, Calcium Level 9.1 11/03/19 18:01: Bedside Glucose (Misc Panel) 313H 11/03/19 20:25: Bedside Glucose (Misc Panel) 310H 11/03/19 21:11: Bedside Glucose (Misc Panel) 317H 11/03/19 21:36: Anion Gap 8, Glomerular Filtration Rate > 60.0, Calcium Level 8.5 11/04/19 06:30: Bedside Glucose (Misc Panel) 248H CBC/BMP Laboratory Tests 11/03/19 12:01 11/03/19 17:34 11/03/19 21:36 FSBS Laboratory Tests Test 11/03/19 10:19 11/03/19 11:27 11/03/19 12:03 11/03/19 13:26 Range/Units Bedside Glucose (Misc Panel) 184 155 168 196 70-105 MG/DL Test 11/03/19 18:01 11/03/19 20:25 11/03/19 21:11 11/04/19 06:30 Range/Units Bedside Glucose (Misc Panel) 313 310 317 248 70-105 MG/DL Discharge Medications Scheduled Atorvastatin Calcium (Atorvastatin Calcium) 80 Mg Tablet, 1 TAB PO DAILY Blood Sugar Diagnostic (Advanced Glucose Test Strips) 1 Each Strip, 1 STRIP XX ASDIRECTED Allergies Coded Allergies: gabapentin (Verified Adverse Reaction, Intermediate, LEGS SWELL, 10/29/19) [facility] ATTESTATION [facility] ATTESTATION My faculty preceptor for this patient encounter was physically present during the encounter and was fully available. All aspects of the patient interview, examination, medical decision making process, and medical care plan development were reviewed and approved by the faculty preceptor. The faculty preceptor is aware and concurs with the plan as stated in the body of this note and will attest to such by his/her cosignature. CHI BRIZUELA MD Nov 04, 2019 10:36
[2019-11-04] MEDS ORDERED: INSUDET SC (11:39)
[2019-11-04] MEDS ORDERED: BASA100I SC (12:49)
[2019-11-05 00:09] LABS: ANCA-ATYPICAL <1:20 titer (Neg:<1:20); ANTI-MITOCHONDRIAL ANTIBODY <20.0 Units (0.0-20.0); ANTINUCLEAR ANTIBODIES DIRECT Negative (Negative); CERULOPLASMIN 25.2 mg/dL (16.0-31.0); CYTOPLASMIC NEUTROP AB ANCA-C <1:20 titer (Neg:<1:20); LIVER-KIDNEY MICROSOMAL ABY <20.1 Units (0.0-20.0); PERINUCLEAR AB ANCA-P <1:20 titer (Neg:<1:20)
== END 2019-11-04 14:10 | disposition home or self-care (01) | DRG 423 ==
LOC: M ED 15:20 → M ED INP 18:41 → ENRESERVTM 19:29 → ENRESERVDT 19:29 → M MS5PR 20:00 → M ICU 10-30 09:08 → M MS5PR 11-03 14:38
PROVIDERS: ADMIT Internal Medicine; ATTEND Internal Medicine
DX: E78.1 Pure hyperglyceridemia (principal); K76.6 Portal hypertension; Z68.43 Body mass index [BMI] 50.0-59.9, adult; K80.50 Calculus of bile duct without cholangitis or cholecystitis without obstruction; K85.90 Acute pancreatitis without necrosis or infection, unspecified; E66.01 Morbid (severe) obesity due to excess calories; E11.65 Type 2 diabetes mellitus with hyperglycemia; K75.81 Nonalcoholic steatohepatitis (NASH); R16.2 Hepatomegaly with splenomegaly, not elsewhere classified; B17.9 Acute viral hepatitis, unspecified; F41.9 Anxiety disorder, unspecified; F32.9 Major depressive disorder, single episode, unspecified; F17.210 Nicotine dependence, cigarettes, uncomplicated; F12.10 Cannabis abuse, uncomplicated; D72.829 Elevated white blood cell count, unspecified; Z88.8 Allergy status to other drugs, medicaments and biological substances; K57.90 Diverticulosis of intestine, part unspecified, without perforation or abscess without bleeding

== ENCOUNTER → 2019-11-12 | Outpatient (CLI) | payer OTHER ==
[~2019-11-12] MED LIST changes: +ALCOPAD25 TOP; +ATOR80TA59 PO; +BASA100I SC; +BLOOKIT21 XX; +GLUC1TES2 XX; +INSU1MIS20 SC; +INSUDET SC; +LANC30MI XX; +PEN1MIS22 SC
== END ==
LOC: M PLALAB 15:03
PROVIDERS: ATTEND Internal Medicine
DX: E78.1 Pure hyperglyceridemia (principal)

== ENCOUNTER → 2019-11-12 | Outpatient (REF) | payer OTHER | LOC: M SFHCPLAZ 14:41 | DX: E78.1 Pure hyperglyceridemia (principal) ==

== ENCOUNTER → 2020-12-29 | Outpatient (REF) | payer OTHER ==
[~2020-12-29] MED LIST changes: +GABA-283 PO; -GABA-845 PO; +HYDR-3490 PO; -HYDR25TAB PO
[2020-12-29 14:09] LABS: HEMATOCRIT 48.7 % (42.0-52.0); HEMOGLOBIN 15.5 g/dl (13.5-17.5); MEAN CORPUSCULAR HEMOGLOBIN 26.5 pg (27.0-33.0); MEAN CORPUSCULAR HGB CONC 31.8 g/dl (32.0-36.5); MEAN CORPUSCULAR VOLUME 83.4 fl (80.0-96.0); PLATELET COUNT, AUTOMATED 343 10^3/uL (150-450); RED BLOOD COUNT 5.84 10^6/uL (4.30-6.10)
[2020-12-29 15:50] LABS: ALBUMIN 3.9 GM/DL (3.2-5.2); ALT/SGPT 40 U/L (12-78); BILIRUBIN,TOTAL 0.4 MG/DL (0.2-1.0); BLOOD UREA NITROGEN 14 MG/DL (7-18); CALCIUM LEVEL 9.7 MG/DL (8.5-10.1); CARBON DIOXIDE LEVEL 24 MEQ/L (21-32); CHLORIDE LEVEL 106 MEQ/L (98-107); CHOLESTEROL LEVEL 143 MG/DL (<200); CHOLESTEROL RISK RATIO 4.766 (<5); CREATININE FOR GFR 0.87 MG/DL (0.70-1.30); FREE T4 0.75 NG/DL (0.76-1.46); GLOMERULAR FILTRATION RATE > 60.0 (>60); GLUCOSE, FASTING 197 MG/DL (70-100); HDL CHOLESTEROL 30 MG/DL (>40); LIPASE 78 U/L (73-393); NON-HDL-C 113 MG/DL; POTASSIUM SERUM 4.6 MEQ/L (3.5-5.1); SODIUM LEVEL 139 MEQ/L (136-145); TOTAL PROTEIN 7.4 GM/DL (6.4-8.2); TRIGLYCERIDES LEVEL 528 MG/DL (<150)
[2020-12-29 15:57] LABS: MALB URINE SIEMENS 22.2 MG/L; MAU/CREAT RATIO 17.4 MCG/MG (0.0-30.0)
== END ==
LOC: M SFHCPLAZ 11:01
PROVIDERS: ATTEND Family Medicine
DX: E78.1 Pure hyperglyceridemia (principal); E11.69 Type 2 diabetes mellitus with other specified complication; I10 Essential (primary) hypertension; E66.01 Morbid (severe) obesity due to excess calories

== ENCOUNTER → 2021-05-14 | Outpatient (CLI) | payer OTHER ==
[2021-05-14 13:49] LABS: APPEARANCE, URINE CLEAR (CLEAR); BACTERIA, URINE AUTO NEGATIVE (NEGATIVE); BILIRUBIN, URINE AUTO NEGATIVE (NEGATIVE); BLOOD, URINE BLOOD NEGATIVE (NEGATIVE); COLOR, URINE YELLOW (YELLOW); GLUCOSE, URINE (UA) AUTO NEGATIVE (NEGATIVE); KETONE, URINE AUTO NEGATIVE (NEGATIVE); LEUKOCYTE ESTERASE, URINE AUTO NEGATIVE (NEGATIVE); MUCUS, URINE SMALL (NEGATIVE); NITRITE, URINE AUTO NEGATIVE (NEGATIVE); PROTEIN, URINE AUTO NEGATIVE (NEGATIVE); RBC, URINE AUTO 0 /HPF (0-3); SPECIFIC GRAVITY URINE AUTO 1.021 (1.002-1.035); SQUAMOUS EPITHELIAL CELL UR AU 0 /HPF (0-6); UROBILINOGEN, URINE AUTO 0.2 mg/dL (0.0-2.0); WBC, URINE AUTO 0 /HPF (0-3)
[2021-05-14 13:51] LABS: HEMATOCRIT 49.6 % (42.0-52.0); HEMOGLOBIN 15.7 g/dl (13.5-17.5); MEAN CORPUSCULAR HEMOGLOBIN 26.7 pg (27.0-33.0); MEAN CORPUSCULAR HGB CONC 31.7 g/dl (32.0-36.5); MEAN CORPUSCULAR VOLUME 84.2 fl (80.0-96.0); PLATELET COUNT, AUTOMATED 389 10^3/uL (150-450); RED BLOOD COUNT 5.89 10^6/uL (4.30-6.10); WHITE BLOOD COUNT 10.5 10^3/uL (4.0-10.0)
[2021-05-14 15:16] LABS: ALBUMIN 4.1 GM/DL (3.2-5.2); ALT/SGPT 89 U/L (12-78); BILIRUBIN,TOTAL 0.4 MG/DL (0.2-1.0); BLOOD UREA NITROGEN 15 MG/DL (7-18); CALCIUM LEVEL 10.4 MG/DL (8.5-10.1); CARBON DIOXIDE LEVEL 30 MEQ/L (21-32); CHLORIDE LEVEL 104 MEQ/L (98-107); CHOLESTEROL LEVEL 177 MG/DL (<200); CHOLESTEROL RISK RATIO 5.205 (<5); CREATININE FOR GFR 0.98 MG/DL (0.70-1.30); FREE T4 0.97 NG/DL (0.76-1.46); GLOMERULAR FILTRATION RATE > 60.0 (>60); GLUCOSE, FASTING 170 MG/DL (70-100); HDL CHOLESTEROL 34 MG/DL (>40); LDL CHOLESTEROL 72 MG/DL (<100); NON-HDL-C 143 MG/DL; POTASSIUM SERUM 4.8 MEQ/L (3.5-5.1); SODIUM LEVEL 138 MEQ/L (136-145); TOTAL PROTEIN 7.8 GM/DL (6.4-8.2); TRIGLYCERIDES LEVEL 354 MG/DL (<150)
[2021-05-14 15:30] LABS: HEPATITIS B SURFACE ANTIGEN NEGATIVE (NEGATIVE)
[2021-05-14 15:59] LABS: HIV 1&2 SCREEN CENTAUR NEGATIVE (NEGATIVE)
[2021-05-14 16:16] LABS: MALB URINE SIEMENS 26.9 MG/L; MAU/CREAT RATIO 16.7 MCG/MG (0.0-30.0)
[2021-05-14 20:06] LABS: HEMOGLOBIN A1c 8.4 %
== END ==
LOC: M PLALAB 11:40
PROVIDERS: ATTEND Student in an Organized Health Care Education/Training Program
DX: Z00.00 Encounter for general adult medical examination without abnormal findings (principal)

== ENCOUNTER → 2021-10-12 | Outpatient (CLI) | payer OTHER ==
[2021-10-12 15:57] LABS: HEMOGLOBIN A1c 5.9 %
[2021-10-12 15:59] LABS: ALBUMIN 4.1 GM/DL (3.2-5.2); ALT/SGPT 25 U/L (12-78); BILIRUBIN,TOTAL 0.3 MG/DL (0.2-1.0); BLOOD UREA NITROGEN 13 MG/DL (7-18); CALCIUM LEVEL 9.7 MG/DL (8.5-10.1); CARBON DIOXIDE LEVEL 28 MEQ/L (21-32); CHLORIDE LEVEL 105 MEQ/L (98-107); CHOLESTEROL LEVEL 92 MG/DL (<200); CHOLESTEROL RISK RATIO 3.172 (<5); CREATININE FOR GFR 0.96 MG/DL (0.70-1.30); GLOMERULAR FILTRATION RATE > 60.0 (>60); GLUCOSE, FASTING 151 MG/DL (70-100); HDL CHOLESTEROL 29 MG/DL (>40); LDL CHOLESTEROL 9 MG/DL (<100); NON-HDL-C 63 MG/DL; POTASSIUM SERUM 4.4 MEQ/L (3.5-5.1); SODIUM LEVEL 138 MEQ/L (136-145); TOTAL PROTEIN 7.4 GM/DL (6.4-8.2); TRIGLYCERIDES LEVEL 272 MG/DL (<150)
== END ==
LOC: M PLAIMG 13:38
PROVIDERS: ATTEND Student in an Organized Health Care Education/Training Program
DX: M54.40 Lumbago with sciatica, unspecified side (principal)

== ENCOUNTER → 2022-03-21 | Outpatient (CLI) | payer OTHER | LOC: M PAIN 09:00 | PROVIDERS: ATTEND Nurse Practitioner Family | DX: M54.50 Low back pain, unspecified (principal); F43.10 Post-traumatic stress disorder, unspecified; F42.9 Obsessive-compulsive disorder, unspecified; F31.9 Bipolar disorder, unspecified; F40.10 Social phobia, unspecified; F41.9 Anxiety disorder, unspecified; E66.9 Obesity, unspecified; M19.90 Unspecified osteoarthritis, unspecified site; Z79.84 Long term (current) use of oral hypoglycemic drugs; Z79.899 Other long term (current) drug therapy; F17.210 Nicotine dependence, cigarettes, uncomplicated; Z88.8 Allergy status to other drugs, medicaments and biological substances; Z68.43 Body mass index [BMI] 50.0-59.9, adult ==

== ENCOUNTER → 2022-04-01 | Outpatient (CLI) | payer OTHER | LOC: M RAD 10:52 | PROVIDERS: ATTEND Nurse Practitioner Family | DX: M54.50 Low back pain, unspecified (principal) ==

== ENCOUNTER → 2022-05-12 | Outpatient (CLI) | payer OTHER ==
[2022-05-12 16:20] LABS: BLOOD UREA NITROGEN 13 MG/DL (7-18); CALCIUM LEVEL 9.5 MG/DL (8.5-10.1); CARBON DIOXIDE LEVEL 27 MEQ/L (21-32); CHLORIDE LEVEL 106 MEQ/L (98-107); CHOLESTEROL LEVEL 113 MG/DL (<200); CHOLESTEROL RISK RATIO 3.424 (<5); CREATININE FOR GFR 0.97 MG/DL (0.70-1.30); GLOMERULAR FILTRATION RATE > 60.0 (>60); GLUCOSE, FASTING 156 MG/DL (70-100); HDL CHOLESTEROL 33 MG/DL (>40); LDL CHOLESTEROL 32 MG/DL (<100); NON-HDL-C 80 MG/DL; POTASSIUM SERUM 4.8 MEQ/L (3.5-5.1); SODIUM LEVEL 137 MEQ/L (136-145); TRIGLYCERIDES LEVEL 241 MG/DL (<150)
[2022-05-12 16:28] LABS: MALB URINE SIEMENS 15.1 MG/L
[2022-05-12 17:11] LABS: TOTAL 25(OH) VITAMIN D 16.6 NG/ML (30.0-100.0)
== END ==
LOC: M PLALAB 12:35
PROVIDERS: ATTEND Student in an Organized Health Care Education/Training Program
DX: M54.50 Low back pain, unspecified (principal); E11.9 Type 2 diabetes mellitus without complications; I10 Essential (primary) hypertension

== ENCOUNTER 2022-07-14 06:25 | Emergency (ER) | payer OTHER ==
[~2022-07-14] VITALS: Ht 172.7 cm; Wt 150.0 kg
[2022-07-14 08:32] LABS: BASO # 0.1 10^3/uL (0.0-0.2); BASO % 0.7 % (0.0-1.0); EOS # 0.4 10^3/uL (0.0-0.5); EOS % 3.1 % (0.0-3.0); HEMATOCRIT 48.5 % (42.0-52.0); HEMOGLOBIN 15.4 g/dl (13.5-17.5); LYMPH # 4.9 10^3/uL (1.5-5.0); MEAN CORPUSCULAR HEMOGLOBIN 25.7 pg (27.0-33.0); MEAN CORPUSCULAR HGB CONC 31.8 g/dl (32.0-36.5); MEAN CORPUSCULAR VOLUME 80.8 fl (80.0-96.0); MONO # 1.1 10^3/uL (0.0-0.8); MONO % 8.7 % (2.0-8.0); NEUTROPHILS # 5.8 10^3/uL (1.5-8.5); NEUTROPHILS % 47.1 % (36.0-66.0); PLATELET COUNT, AUTOMATED 385 10^3/uL (150-450); WHITE BLOOD COUNT 12.3 10^3/uL (4.0-10.0)
[2022-07-14] MEDS ORDERED: BOOSTRIX/ADACEL VACCINE (DIPHTH/PERTUSS/ACELL/TETANUS) 0.5ML SYR IM ONE (08:55)
[2022-07-14 08:58] LABS: HEPATITIS B SURFACE ANTIBODY POSITIVE (POSITIVE)
[2022-07-14] MEDS ORDERED: AMOX875T2 PO (09:06)
[2022-07-14 09:10] LABS: HEPATITIS B SURFACE ANTIGEN NEGATIVE (NEGATIVE)
[2022-07-14] MEDS ORDERED: AUGMENTIN 875 MG TAB PO ONE (09:15)
[2022-07-14 09:22] LABS: HIV SCREEN CENTAUR EXPOSED NEGATIVE (NEGATIVE)
[2022-07-14 09:31] LABS: HEPATITIS C VIRUS ABY INDEX 0.1 INDEX (<0.8)
[2022-07-14 09:43] VITALS: BP 138/84
[2022-07-14 09:54] LABS: ALBUMIN 4.2 G/DL (3.2-5.2); ALKALINE PHOSPHATASE 83 U/L (46-116); ALT/SGPT 26 U/L (7.0-40); AST/SGOT 26 U/L (<34); BILIRUBIN,TOTAL 0.4 MG/DL (0.3-1.2); BLOOD UREA NITROGEN 14 MG/DL (9-23); CALCIUM LEVEL 9.4 MG/DL (8.5-10.1); CARBON DIOXIDE LEVEL 24 MMOL/L (20-31); CHLORIDE LEVEL 106 MMOL/L (98-107); CREATININE FOR GFR 0.78 MG/DL (0.70-1.30); GLOMERULAR FILTRATION RATE > 60.0 (>60); GLUCOSE, FASTING 114 MG/DL (60-100); SODIUM LEVEL 137 MMOL/L (136-145); TOTAL PROTEIN 7.3 G/DL (5.7-8.2)
== END 2022-07-14 09:50 | disposition home or self-care (01) ==
LOC: M ED 06:25
DX: S51.852A Open bite of left forearm, initial encounter (principal); W50.3XXA Accidental bite by another person, initial encounter; Y92.230 Patient room in hospital as the place of occurrence of the external cause; Y99.0 Civilian activity done for income or pay; F17.200 Nicotine dependence, unspecified, uncomplicated; F12.10 Cannabis abuse, uncomplicated; E11.9 Type 2 diabetes mellitus without complications; Z79.4 Long term (current) use of insulin; Z79.899 Other long term (current) drug therapy; Z88.8 Allergy status to other drugs, medicaments and biological substances

== ENCOUNTER → 2022-08-23 | Outpatient (CLI) | payer OTHER ==
[~2022-08-23] MED LIST changes: +AMOX875T2 PO
== END ==
LOC: M PAIN 09:15
PROVIDERS: ATTEND Nurse Practitioner Family
DX: M51.16 Intervertebral disc disorders with radiculopathy, lumbar region (principal); G89.29 Other chronic pain; E11.9 Type 2 diabetes mellitus without complications; Z86.14 Personal history of Methicillin resistant Staphylococcus aureus infection; Z86.59 Personal history of other mental and behavioral disorders; Z88.8 Allergy status to other drugs, medicaments and biological substances; E66.01 Morbid (severe) obesity due to excess calories; Z68.43 Body mass index [BMI] 50.0-59.9, adult; Z79.4 Long term (current) use of insulin; Z79.84 Long term (current) use of oral hypoglycemic drugs; Z79.899 Other long term (current) drug therapy

== ENCOUNTER → 2022-09-27 | Outpatient (CLI) | payer OTHER | LOC: M PAIN 09:30 | PROVIDERS: ATTEND Nurse Practitioner Family | DX: M51.16 Intervertebral disc disorders with radiculopathy, lumbar region (principal); G89.29 Other chronic pain; E11.9 Type 2 diabetes mellitus without complications; F17.210 Nicotine dependence, cigarettes, uncomplicated; Z86.14 Personal history of Methicillin resistant Staphylococcus aureus infection; Z86.59 Personal history of other mental and behavioral disorders; Z88.8 Allergy status to other drugs, medicaments and biological substances; E66.01 Morbid (severe) obesity due to excess calories; Z68.43 Body mass index [BMI] 50.0-59.9, adult; Z79.4 Long term (current) use of insulin; Z79.84 Long term (current) use of oral hypoglycemic drugs; Z79.85 Long-term (current) use of injectable non-insulin antidiabetic drugs; Z79.899 Other long term (current) drug therapy ==

== ENCOUNTER → 2022-12-22 | Outpatient (CLI) | payer OTHER | LOC: M PLAIMG 10:00 | PROVIDERS: ATTEND Nurse Practitioner Family | DX: M51.16 Intervertebral disc disorders with radiculopathy, lumbar region (principal) ==

== ENCOUNTER → 2023-01-12 | Outpatient (CLI) | payer OTHER | LOC: M PAIN 10:45 | PROVIDERS: ATTEND Nurse Practitioner Family | DX: M51.16 Intervertebral disc disorders with radiculopathy, lumbar region (principal); F43.10 Post-traumatic stress disorder, unspecified; F43.20 Adjustment disorder, unspecified; F41.9 Anxiety disorder, unspecified; E66.9 Obesity, unspecified; F17.210 Nicotine dependence, cigarettes, uncomplicated; Z79.85 Long-term (current) use of injectable non-insulin antidiabetic drugs; Z79.899 Other long term (current) drug therapy; Z88.8 Allergy status to other drugs, medicaments and biological substances; Z68.43 Body mass index [BMI] 50.0-59.9, adult ==

== ENCOUNTER → 2023-02-28 | Outpatient (CLI) | payer OTHER ==
[~2023-02-28] MED LIST changes: +ISOVUE-M 300 61% 15ML VIAL As Ordered ONE; +LIDOCAINE 1% SDV 30ML VIAL As Ordered ONE; +NORCO, ANEXSIA 5/325MG TABLET (HYDROcodone/ACETAMINOPHEN) As Ordered ONE; +diazePAM 2 MG TAB As Ordered ONE; +methylPREDNISolone SUSP 40MG/ML 1ML VIAL (DEPO MEDROL) As Ordered ONE
== END ==
LOC: M PAIN 11:00
PROVIDERS: ATTEND Anesthesiology
DX: M51.16 Intervertebral disc disorders with radiculopathy, lumbar region (principal); F42.9 Obsessive-compulsive disorder, unspecified; F43.10 Post-traumatic stress disorder, unspecified; F32.A Depression, unspecified; F41.9 Anxiety disorder, unspecified; E66.9 Obesity, unspecified; M19.90 Unspecified osteoarthritis, unspecified site; Z68.43 Body mass index [BMI] 50.0-59.9, adult; F17.210 Nicotine dependence, cigarettes, uncomplicated; Z79.85 Long-term (current) use of injectable non-insulin antidiabetic drugs; Z79.899 Other long term (current) drug therapy
CPT/HCPCS: 62323; J1030; Q9967

== ENCOUNTER → 2023-03-06 | Outpatient (CLI) | payer OTHER ==
[~2023-03-06] MED LIST changes: -GABA-283 PO; +GABA-284 PO; -ISOVUE-M 300 61% 15ML VIAL As Ordered ONE; -LIDOCAINE 1% SDV 30ML VIAL As Ordered ONE; -NORCO, ANEXSIA 5/325MG TABLET (HYDROcodone/ACETAMINOPHEN) As Ordered ONE; -diazePAM 2 MG TAB As Ordered ONE; -methylPREDNISolone SUSP 40MG/ML 1ML VIAL (DEPO MEDROL) As Ordered ONE
== END ==
LOC: M PAIN 15:45
PROVIDERS: ATTEND Anesthesiology
DX: M51.16 Intervertebral disc disorders with radiculopathy, lumbar region (principal); M48.061 Spinal stenosis, lumbar region without neurogenic claudication; F42.9 Obsessive-compulsive disorder, unspecified; F43.10 Post-traumatic stress disorder, unspecified; F31.9 Bipolar disorder, unspecified; E11.9 Type 2 diabetes mellitus without complications; F43.20 Adjustment disorder, unspecified; F41.9 Anxiety disorder, unspecified; E66.9 Obesity, unspecified; Z86.16 Personal history of COVID-19; F17.210 Nicotine dependence, cigarettes, uncomplicated; Z68.43 Body mass index [BMI] 50.0-59.9, adult; Z79.84 Long term (current) use of oral hypoglycemic drugs; Z79.85 Long-term (current) use of injectable non-insulin antidiabetic drugs; Z79.899 Other long term (current) drug therapy; Z88.8 Allergy status to other drugs, medicaments and biological substances

== ENCOUNTER → 2023-05-10 | Outpatient (CLI) | payer OTHER | LOC: M PAIN 09:00 | PROVIDERS: ATTEND Anesthesiology | DX: M51.16 Intervertebral disc disorders with radiculopathy, lumbar region (principal); G89.29 Other chronic pain; E11.9 Type 2 diabetes mellitus without complications; F17.210 Nicotine dependence, cigarettes, uncomplicated; Z86.14 Personal history of Methicillin resistant Staphylococcus aureus infection; Z86.59 Personal history of other mental and behavioral disorders; Z86.16 Personal history of COVID-19; Z88.8 Allergy status to other drugs, medicaments and biological substances; E66.01 Morbid (severe) obesity due to excess calories; Z68.43 Body mass index [BMI] 50.0-59.9, adult; Z79.4 Long term (current) use of insulin; Z79.84 Long term (current) use of oral hypoglycemic drugs; Z79.85 Long-term (current) use of injectable non-insulin antidiabetic drugs; Z79.899 Other long term (current) drug therapy ==

== ENCOUNTER → 2023-05-22 | Outpatient (CLI) | payer MEDICAID | LOC: M OUTALCOH 10:22 | PROVIDERS: ATTEND Psychiatry & Neurology Psychiatry | DX: F11.20 Opioid dependence, uncomplicated (principal); F17.200 Nicotine dependence, unspecified, uncomplicated ==

== ENCOUNTER 2023-06-05 08:27 | Outpatient (RCR) | payer MEDICAID | END 2023-06-06 | LOC: M OUTALCOH 08:27 | PROVIDERS: ATTEND Psychiatry & Neurology Psychiatry | DX: F11.20 Opioid dependence, uncomplicated (principal); F17.200 Nicotine dependence, unspecified, uncomplicated ==

== ENCOUNTER 2023-07-26 08:00 | Outpatient (RCR) | payer MEDICAID | END 2023-08-06 | LOC: M OUTALCOH 08:00 | PROVIDERS: ATTEND Psychiatry & Neurology Child & Adolescent Psychiatry | DX: F11.20 Opioid dependence, uncomplicated (principal); F17.200 Nicotine dependence, unspecified, uncomplicated ==

== ENCOUNTER → 2023-08-01 | Outpatient (CLI) | payer MEDICAID | LOC: M PAIN 16:00 | PROVIDERS: ATTEND Nurse Practitioner Family | DX: M51.16 Intervertebral disc disorders with radiculopathy, lumbar region (principal); G89.29 Other chronic pain; F17.210 Nicotine dependence, cigarettes, uncomplicated; Z79.85 Long-term (current) use of injectable non-insulin antidiabetic drugs; Z79.899 Other long term (current) drug therapy; Z88.8 Allergy status to other drugs, medicaments and biological substances ==

== ENCOUNTER → 2023-09-15 | Outpatient (CLI) | payer OTHER ==
[~2023-09-15] MED LIST changes: +ISOVUE-M 300 61% 15ML VIAL As Ordered ONE; +LIDOCAINE 1% SDV 30ML VIAL As Ordered ONE; +NORCO, ANEXSIA 5/325MG TABLET (HYDROcodone/ACETAMINOPHEN) As Ordered ONE; +dexAMETHasone 10MG/1ML VIAL PRES.FREE As Ordered ONE; +diazePAM 2 MG TAB As Ordered ONE
== END ==
LOC: M PAIN 13:00
PROVIDERS: ATTEND Anesthesiology
DX: M51.16 Intervertebral disc disorders with radiculopathy, lumbar region (principal); F42.9 Obsessive-compulsive disorder, unspecified; F43.10 Post-traumatic stress disorder, unspecified; F40.10 Social phobia, unspecified; F41.9 Anxiety disorder, unspecified; E66.9 Obesity, unspecified; F17.210 Nicotine dependence, cigarettes, uncomplicated; Z79.4 Long term (current) use of insulin; Z79.1 Long term (current) use of non-steroidal anti-inflammatories (NSAID); Z79.899 Other long term (current) drug therapy; Z88.8 Allergy status to other drugs, medicaments and biological substances
CPT/HCPCS: 64483; J0665; J1100; Q9967

== ENCOUNTER → 2023-10-23 | Outpatient (CLI) | payer OTHER ==
[~2023-10-23] MED LIST changes: -ISOVUE-M 300 61% 15ML VIAL As Ordered ONE; -LIDOCAINE 1% SDV 30ML VIAL As Ordered ONE; -NORCO, ANEXSIA 5/325MG TABLET (HYDROcodone/ACETAMINOPHEN) As Ordered ONE; -dexAMETHasone 10MG/1ML VIAL PRES.FREE As Ordered ONE; -diazePAM 2 MG TAB As Ordered ONE
== END ==
LOC: M PAIN 16:00
PROVIDERS: ATTEND Nurse Practitioner Family
DX: M51.16 Intervertebral disc disorders with radiculopathy, lumbar region (principal); E11.9 Type 2 diabetes mellitus without complications; I10 Essential (primary) hypertension; G89.29 Other chronic pain; Z79.02 Long term (current) use of antithrombotics/antiplatelets; Z79.1 Long term (current) use of non-steroidal anti-inflammatories (NSAID); Z79.4 Long term (current) use of insulin; Z79.899 Other long term (current) drug therapy; Z88.5 Allergy status to narcotic agent

== ENCOUNTER → 2023-11-29 | Outpatient (CLI) | payer BC, OTHER | LOC: M RAD 13:07 | PROVIDERS: ATTEND Student in an Organized Health Care Education/Training Program | DX: M79.605 Pain in left leg (principal); M79.89 Other specified soft tissue disorders ==

== ENCOUNTER → 2023-11-29 | Outpatient (REF) | payer OTHER | LOC: M SFHCPLAZ 10:00 | PROVIDERS: ATTEND Student in an Organized Health Care Education/Training Program | DX: Z00.00 Encounter for general adult medical examination without abnormal findings (principal); Z13.29 Encounter for screening for other suspected endocrine disorder; E78.00 Pure hypercholesterolemia, unspecified; E11.42 Type 2 diabetes mellitus with diabetic polyneuropathy ==

== ENCOUNTER → 2023-11-29 | Outpatient (CLI) | payer BC, OTHER ==
[2023-11-29 15:46] LABS: HEMATOCRIT 49.3 % (42.0-52.0); HEMOGLOBIN 15.9 g/dl (13.5-17.5); MEAN CORPUSCULAR HEMOGLOBIN 25.9 pg (27.0-33.0); MEAN CORPUSCULAR HGB CONC 32.3 g/dl (32.0-36.5); MEAN CORPUSCULAR VOLUME 80.4 fl (80.0-96.0); PLATELET COUNT, AUTOMATED 365 10^3/uL (150-450); RED BLOOD COUNT 6.13 10^6/uL (4.30-6.10); WHITE BLOOD COUNT 13.6 10^3/uL (4.0-10.0)
[2023-11-29 15:51] LABS: HEMOGLOBIN A1c 6.4 % (4.0-6.0)
[2023-11-29 16:16] LABS: ALBUMIN 4.5 G/DL (3.2-5.2); ALKALINE PHOSPHATASE 91 U/L (46-116); ALT/SGPT 29 U/L (7.0-40); AST/SGOT 30 U/L (<34); BILIRUBIN,TOTAL 0.7 MG/DL (0.3-1.2); BLOOD UREA NITROGEN 15 MG/DL (9-23); CALCIUM LEVEL 10.3 MG/DL (8.5-10.1); CARBON DIOXIDE LEVEL 30 MMOL/L (20-31); CHLORIDE LEVEL 100 MMOL/L (98-107); CHOLESTEROL LEVEL 91 MG/DL (<200); CHOLESTEROL RISK RATIO 2.71 (<5); CREATININE FOR GFR 0.85 MG/DL (0.70-1.30); GLOMERULAR FILTRATION RATE > 60.0 (>60); GLUCOSE, FASTING 95 MG/DL (60-100); HDL CHOLESTEROL 33.5 MG/DL (>40); LDL CHOLESTEROL 27.1 MG/DL (<100); NON-HDL-C 57.5 MG/DL; SODIUM LEVEL 137 MMOL/L (136-145); TOTAL 25(OH) VITAMIN D 7.8 NG/ML (20.0-100.0); TOTAL PROTEIN 7.5 G/DL (5.7-8.2); TRIGLYCERIDES LEVEL 152 MG/DL (<150)
[2023-11-29 16:17] LABS: FREE T4 1.14 NG/DL (0.89-1.76)
[2023-11-29 16:21] LABS: MAU/CREAT RATIO 3.5 MCG/MG (0.0-30.0)
[2023-11-29 16:49] LABS: ATYPICAL LYMPH 13 % (0-5); BASOPHILS 1 % (0-1); EOSINOPHILS 4 % (0-3); LYMPHOCYTES 15 % (16-44); MONOCYTES 7 % (0-5); NEUTROPHILS 60 % (28-66); PLATELET ESTIMATE NORMAL (NORMAL)
== END ==
LOC: M PLAIMG 10:50
PROVIDERS: ATTEND Student in an Organized Health Care Education/Training Program
DX: M79.671 Pain in right foot (principal); Z18.9 Retained foreign body fragments, unspecified material; E11.42 Type 2 diabetes mellitus with diabetic polyneuropathy

== ENCOUNTER → 2023-11-30 | Outpatient (REF) | payer OTHER | LOC: M SFHCPLAZ 17:17 | PROVIDERS: ATTEND Student in an Organized Health Care Education/Training Program | DX: Z00.00 Encounter for general adult medical examination without abnormal findings (principal); Z13.29 Encounter for screening for other suspected endocrine disorder; E78.00 Pure hypercholesterolemia, unspecified; E11.42 Type 2 diabetes mellitus with diabetic polyneuropathy ==

== ENCOUNTER → 2024-05-15 | Outpatient (CLI) | payer BC | LOC: M PLALAB 09:07 | PROVIDERS: ATTEND Student in an Organized Health Care Education/Training Program | DX: E11.69 Type 2 diabetes mellitus with other specified complication (principal) ==

== ENCOUNTER 2024-12-02 06:09 | Emergency (ER) | payer BC ==
[~2024-12-02] VITALS: Ht 172.7 cm; Wt 150.0 kg
[2024-12-02] MEDS: methocarbamoL 500 MG TAB PO ONE (11:35)
[2024-12-02] MEDS: KETOROLAC 60MG 2ML VIAL IM ONE (11:35)
[2024-12-02] MEDS: LIDOCAINE 5% (LIDODERM) PATCH TD ONE (13:47)
[2024-12-02] MEDS: ACETAMINOPHEN *IV* 1,000 MG in IV 1 EA IV ONE (13:47)
[2024-12-02] MEDS ORDERED: METH-1164 PO (14:27)
[2024-12-02] MEDS ORDERED: LIDO5DIS41 TOP (14:27)
[2024-12-02 14:46] VITALS: BP 131/82; TEMP 96.5; O2SAT 98
== END 2024-12-02 14:48 | disposition home or self-care (01) ==
LOC: M ED 06:09
DX: M54.32 Sciatica, left side (principal); E11.9 Type 2 diabetes mellitus without complications; F17.290 Nicotine dependence, other tobacco product, uncomplicated; F12.10 Cannabis abuse, uncomplicated; Z88.8 Allergy status to other drugs, medicaments and biological substances; Z79.2 Long term (current) use of antibiotics; Z79.4 Long term (current) use of insulin; Z79.899 Other long term (current) drug therapy
CPT/HCPCS: 72110; 96372; 96374; 96375; 99284; J0131; J1100; J1885